=== PATIENT | male | born 1945 | race American Indian/Alaskan Native ===

== ENCOUNTER 2017-12-03 03:43 | Inpatient (IN) | payer BC, OTHER ==
--- NOTE | 2017-12-03 03:48 | PDOC ---
History of Present Illness - General Chief Complaint: Chest Pain Stated Complaint: CHEST TIGHTNESS NON PRODUCTIVE COUGH Time Seen by Provider: 12/03/17 03:45 History Source: Patient Exam Limitations: No Limitations - History of Present Illness Initial Comments: 12/03/17 03:45 This is a 72-year-old male with history significant for COPD, hypertension who comes in complaining of chest tightness and shortness of breath. Patient had a recent viral upper respiratory illness most likely influenza and was started on prednisone and an antibiotic yesterday. Patient took the prednisone and antibiotic yesterday. Patient is complaining of some associated shortness of breath with it denies any diaphoresis, denies any radiation. Tightness is across the anterior chest. Patient says he has been coughing but it is nonproductive. Patient denies any fevers today but had fevers 4 days ago. PAST MEDICAL HISTORY: As per history of present illness PAST SURGICAL HISTORY: no significant history FAMILY HISTORY: no pertinant history SOCIAL HISTORY: Pt lives with family and is employed. MEDICATIONS: reviewed ALLERGIES: As per nursing notes Review of Systems General: + fevers or chills, no weakness, no weight loss HEENT: No change in vision. No sore throat,. No ear pain CardioVascular: + chest pain + shortness of breath Respiratory:No cough, or wheezing. Gastrointestinal: no nausea, vomitting, diarrhea or constipation, No rectal bleeding Genitourinary: No dysuria, hematuria, or frequency Musculoskeletal: No joint or muscle pain or swelling Neurologic: No headache, vertigo, dizziness or loss of consciousness Psychiatric: nor depression Skin: No rashes or easy bruising Endocrine: no increased thirst or abnormal weight change Allergic: no skin or latex allergy All other systems reviewed and normal Exam: General: Well-nourished well-developed individual, no acute distress HEENT: Throat: Normal, tonsils normal, no erythema or exudate Neck: Supple, no meningeal signs, no lymphadenopathy Eyes::Pupils equal reactive and round, extraocular motion intact Chest: Nontender to palpation Cardiac: S1-S2 normal, regular rate and rhythm, no murmurs rubs or gallops Respiratory: Lungs clear to auscultation bilateral however there is decreased breath sounds bilateral Abdomen: Soft, nondistended, normal bowel sounds, nontender to palpation diffusely Extremities: Warm, dry, no cyanosis, clubbing, or edema Skin: No rashes Neuro: Alert and oriented x3, CN II - XII intact, nonfocal exam with normal strength, normal sensation, normal reflexes, normal gait, Psych: Normal mood and affect Medical decision making this is a 72-year-old male with recent history of most likely influenza now on an antibiotic and some steroids 1 day. Patient comes in complaining of tightness across his chest and shortness of breath. Patient was afebrile Differential diagnosis includes cardiac causes, COPD D exacerbation, bronchitis , pneumonia, pleuritis. We'll obtain workup including labs of CBC, comp, cardiac enzymes EKG and chest x-ray were ordered We'll reassess and evaluate results of workup 12/03/17 04:09 EKG done at 3:57 AM shows normal sinus rhythm at a rate of 79, no acute ST-T wave changes however poor data quality 12/03/17 05:56 Chest x-ray shows hyperinflation consistent with emphysema but otherwise no acute pathology Reassessment patient feels better on oxygen, no further chest pain/discomfort Patient's workup/labs are still pending. Patient will need a TELEMETRY admission as his heart scores 4 12/03/17 07:00 Care of patient transferred to Dr. Pabon at 7 AM Case discussed in detail with oncoming Emergency Physician including history, physical exam and ancillary studies. Oncoming Emergency Physician has assumed care for the patient and will complete the evaluation and treatment. Patient is aware of the plan. Pt is clinically unchanged and stable. Past History - Past Medical History Allergies/Adverse Reactions: Allergies Allergy/AdvReac Type Severity Reaction Status Date / Time levofloxacin [From Levaquin] Allergy Intermediate Rash Verified 12/03/17 03:46 Home Medications: Ambulatory Orders Albuterol Sulfate Inhaler - [Ventolin HFA Inhaler -] 1 puff IH PRN 12/03/17 Cefpodoxime Proxetil [Vantin -] 200 mg PO Q12H 12/03/17 Fludrocortisone Acetate 0.5 tab PO WEEKLY 12/03/17 Losartan Potassium 25 mg PO DAILY 12/03/17 Pantoprazole Sodium 40 mg PO DAILY 12/03/17 Prednisone [Deltasone -] 20 mg PO BID 12/03/17 Rosuvastatin [Crestor -] 20 mg PO DAILY 12/03/17 Silodosin [Rapaflo] 8 mg PO DAILY 12/03/17 Umeclidinium Brm/Vilanterol Tr [Anoro Ellipta 62.5-25 Mcg INH] 1 each IH DAILY 12/03/17 COPD: Yes GI Disorders: Yes Hypercholesterolemia: Yes - Suicide/Smoking/Psychosocial Hx Smoking History: Unknown if ever smoked Hx Alcohol Use: No Substance Use Type: None *Physical Exam - Vital Signs Last Vital Signs Temp Pulse Resp BP Pulse Ox 97.4 F L 73 20 162/105 98 12/03/17 03:45 12/03/17 05:15 12/03/17 05:15 12/03/17 05:15 12/03/17 05:15 Heart Score/ECG Review - History History: Slightly suspicious - Electrocardiogram EKG: Normal - Age Age: >/= 65 - Risk Factors Risk Factors Heart Score: Yes Hx Hypertension, Yes Smoking History, Yes Positive family hx of cardiac disease Based on the list above the patient has:: >/=3 risk factors or Hx atherosclerotic disease - Troponin Troponin: </= normal limit - Score Heart Score - Total: 4 ED Treatment Course - LABORATORY CBC & Chemistry Diagram: 12/03/17 04:25 12/03/17 04:25 - ADDITIONAL ORDERS Additional order review: Laboratory Results 12/03/17 04:25 Creatine Kinase 193 Troponin I < 0.02 - RADIOLOGY Radiology Studies Ordered: Category Date Time Status CHEST X-RAY PORTABLE* [RAD] Stat Radiology 12/03/17 03:52 Taken *DC/Admit/Observation/Transfer Diagnosis at time of Disposition: Chest pain Qualifiers: Chest pain type: unspecified Qualified Code(s): R07.9 - Chest pain, unspecified - Discharge Dispostion Condition at time of disposition: Fair - Referrals - Patient Instructions - Post Discharge Activity
[2017-12-03 06:43] LABS: ALBUMIN 3.8 g/dl (3.4-5.0); ALK PHOS 76 U/L (45-117); ANION GAP 7 (8-16); BILIRUBIN,TOTAL 0.5 mg/dL (0.2-1.0); BLOOD UREA NITROGEN 13 mg/dL (7-18); CALCIUM 9.1 mg/dL (8.5-10.1); CHLORIDE 103 mmol/L (98-107); CO2 28 mmol/L (21-32); CREATININE 1.3 mg/dL (0.7-1.3); GLUCOSE,RANDOM 96 mg/dL (74-106); POTASSIUM 4.7 mmol/L (3.5-5.1); SGOT/AST 25 U/L (15-37); SGPT/ALT 27 U/L (12-78); SODIUM 138 mmol/L (136-145); TOT PROT 7.3 g/dl (6.4-8.2)
[2017-12-03 07:33] LABS: HEMATOCRIT 48.6 % (35.4-49); HEMOGLOBIN 15.8 GM/dL (11.7-16.9); MCH 28.6 pg (25.7-33.7); MCHC 32.4 g/dl (32.0-35.9); MEAN CELL VOLUME 88.3 fl (80-96); RDW 14.3 % (11.9-15.9); WHITE BLOOD COUNT 9.5 K/mm3 (4.0-10.0)
[2017-12-03 07:35] LABS: INR 0.89 (0.82-1.09); PROTHROMBIN TIME (PATIENT) 10.1 SEC (9.98-11.88)
[2017-12-03 08:15] LABS: PLATELET ESTIMATE ADEQUATE
[2017-12-03] MEDS ORDERED: PANTOPRAZOLE 40 MG TABLET (FP) ONE (10:32)
[2017-12-03] MEDS: PANTOPRAZOLE 40 MG TABLET (FP) PO SCH (10:36)
[2017-12-03] MEDS: LOSARTAN POTASSIUM 25 MG TABLET PO SCH (10:36)
--- NOTE | 2017-12-03 12:37 | HP ---
<Evie Rodriguez - Last Filed: 12/04/17 03:55> CHIEF COMPLAINT: PCP: HISTORY OF PRESENT ILLNESS: ER course was notable for: (1) (2) (3) Recent Travel: PAST MEDICAL HISTORY: PAST SURGICAL HISTORY: Social History: Smoking: Alcohol: Drugs: Family History: Allergies levofloxacin [From Levaquin] Allergy (Intermediate, Verified 12/03/17 03:46) Rash HOME MEDICATIONS: Home Medications Medication Instructions Recorded Albuterol Sulfate Inhaler - 1 puff IH PRN 12/03/17 [Ventolin HFA Inhaler -] Cefpodoxime Proxetil [Vantin -] 200 mg PO Q12H 12/03/17 Fludrocortisone Acetate 0.5 tab PO WEEKLY 12/03/17 Losartan Potassium 25 mg PO DAILY 12/03/17 Pantoprazole Sodium 40 mg PO DAILY 12/03/17 Prednisone [Deltasone -] 20 mg PO BID 12/03/17 Rosuvastatin [Crestor -] 20 mg PO DAILY 12/03/17 Silodosin [Rapaflo] 8 mg PO DAILY 12/03/17 Umeclidinium Brm/Vilanterol Tr 1 each IH DAILY 12/03/17 [Anoro Ellipta 62.5-25 Mcg INH] REVIEW OF SYSTEMS CONSTITUTIONAL: Absent: fever, chills, diaphoresis, generalized weakness, malaise, loss of appetite, weight change HEENT: Absent: rhinorrhea, nasal congestion, throat pain, throat swelling, difficulty swallowing, mouth swelling, ear pain, eye pain, visual changes CARDIOVASCULAR: Absent: chest pain, syncope, palpitations, irregular heart rate, lightheadedness , peripheral edema RESPIRATORY: Absent: cough, shortness of breath, dyspnea with exertion, orthopnea, wheezing, stridor, hemoptysis GASTROINTESTINAL: Absent: abdominal pain, abdominal distension, nausea, vomiting, diarrhea, constipation, melena, hematochezia GENITOURINARY: Absent: dysuria, frequency, urgency, hesitancy, hematuria, flank pain, genital pain MUSCULOSKELETAL: Absent: myalgia, arthralgia, joint swelling, back pain, neck pain SKIN: Absent: rash, itching, pallor HEMATOLOGIC/IMMUNOLOGIC: Absent: easy bleeding, easy bruising, lymphadenopathy, frequent infections ENDOCRINE: Absent: unexplained weight gain, unexplained weight loss, heat intolerance, cold intolerance NEUROLOGIC: Absent: headache, focal weakness or paresthesias, dizziness, unsteady gait, seizure, mental status changes, bladder or bowel incontinence PSYCHIATRIC: Absent: anxiety, depression, suicidal or homicidal ideation, hallucinations. PHYSICAL EXAMINATION Vital Signs - 24 hr 12/03/17 12/03/17 12/03/17 05:15 07:04 09:00 Temperature Pulse Rate Pulse Rate [ 73 68 80 Left Radial] Respiratory 20 18 18 Rate Blood Pressure Blood Pressure 162/105 164/105 160/102 [Right Arm] O2 Sat by Pulse 98 100 98 Oximetry (%) 12/03/17 12/03/17 12/03/17 09:44 11:09 12:27 Temperature 97.4 F L 97.7 F Pulse Rate 92 H Pulse Rate [ 81 Left Radial] Respiratory 18 18 18 Rate Blood Pressure 152/98 Blood Pressure 159/105 [Right Arm] O2 Sat by Pulse 98 98 98 Oximetry (%) 12/03/17 12/03/17 12/03/17 15:00 17:44 20:12 Temperature Pulse Rate 95 H Pulse Rate [ Left Radial] Respiratory 24 18 18 Rate Blood Pressure Blood Pressure [Right Arm] O2 Sat by Pulse 98 98 Oximetry (%) 12/03/17 12/04/17 12/04/17 23:00 02:53 03:31 Temperature 98.2 F 97.7 F 97.5 F L Pulse Rate 79 70 112 H Pulse Rate [ Left Radial] Respiratory 20 19 20 Rate Blood Pressure 143/89 182/107 171/107 Blood Pressure [Right Arm] O2 Sat by Pulse 100 100 97 Oximetry (%) GENERAL: Awake, alert, and fully oriented, in no acute distress. HEAD: Normal with no signs of trauma. EYES: Pupils equal, round and reactive to light, extraocular movements intact, sclera anicteric, conjunctiva clear. No lid lag. EARS, NOSE, THROAT: Ears normal, nares patent, oropharynx clear without exudates. Moist mucous membranes. NECK: Normal range of motion, supple without lymphadenopathy, JVD, or masses. LUNGS: Breath sounds equal, clear to auscultation bilaterally. No wheezes, and no crackles. No accessory muscle use. HEART: Regular rate and rhythm, normal S1 and S2 without murmur, rub or gallop. ABDOMEN: Soft, nontender, not distended, normoactive bowel sounds, no guarding, no rebound, no masses. No hepatomegaly or splenomegaly. MUSCULOSKELETAL: Normal range of motion at all joints. No bony deformities or tenderness. No CVA tenderness. UPPER EXTREMITIES: 2+ pulses, warm, well-perfused. No cyanosis. No clubbing. No peripheral edema. LOWER EXTREMITIES: 2+ pulses, warm, well-perfused. No calf tenderness. No peripheral edema. NEUROLOGICAL: Cranial nerves II-XII intact. Normal speech. Normal gait. PSYCHIATRIC: Cooperative. Good eye contact. Appropriate mood and affect. SKIN: Warm, dry, normal turgor, no rashes or lesions noted, normal capillary refill. Laboratory Results - last 24 hr 12/03/17 12/03/17 12/03/17 04:25 04:25 04:25 WBC 9.5 RBC 5.50 Hgb 15.8 Hct 48.6 MCV 88.3 MCH 28.6 MCHC 32.4 RDW 14.3 Plt Count No Result Required. MPV No Result Required. Total Counted 100 Neutrophils % No Result Required. Neutrophils % (Manual) 87.0 H Lymphocytes % No Result Required. Lymphocytes % (Manual) 8.0 Monocytes % (Manual) 5 Platelet Estimate Adequate Platelet Comment Mod plt clumping PT with INR 10.10 INR 0.89 Sodium 138 Potassium 4.7 Chloride 103 Carbon Dioxide 28 Anion Gap 7 L BUN 13 Creatinine 1.3 Creat Clearance w eGFR 54.42 Random Glucose 96 Calcium 9.1 Total Bilirubin 0.5 AST 25 ALT 27 Alkaline Phosphatase 76 Creatine Kinase Creatine Kinase Index CK-MB (CK-2) Troponin I Total Protein 7.3 Albumin 3.8 12/03/17 12/03/17 12/03/17 04:25 14:15 14:15 WBC RBC Hgb Hct MCV MCH MCHC RDW Plt Count MPV Total Counted Neutrophils % Neutrophils % (Manual) Lymphocytes % Lymphocytes % (Manual) Monocytes % (Manual) Platelet Estimate Platelet Comment PT with INR INR Sodium Potassium Chloride Carbon Dioxide Anion Gap BUN Creatinine Creat Clearance w eGFR Random Glucose Calcium Total Bilirubin AST ALT Alkaline Phosphatase Creatine Kinase 193 164 Creatine Kinase Index 5.4 H 7.8 H* CK-MB (CK-2) 10.480 H 12.8 H Troponin I < 0.02 < 0.03 Total Protein Albumin 12/03/17 12/03/17 12/04/17 22:45 22:45 03:30 WBC RBC Hgb Hct MCV MCH MCHC RDW Plt Count MPV Total Counted Neutrophils % Neutrophils % (Manual) Lymphocytes % Lymphocytes % (Manual) Monocytes % (Manual) Platelet Estimate Platelet Comment PT with INR INR Sodium Potassium Chloride Carbon Dioxide Anion Gap BUN Creatinine Creat Clearance w eGFR Random Glucose Calcium Total Bilirubin AST ALT Alkaline Phosphatase Creatine Kinase 185 Creatine Kinase Index 7.5 H* CK-MB (CK-2) 13.9 H Troponin I < 0.03 Cancelled Total Protein Albumin ASSESSMENT/PLAN: <EranFartun - Last Filed: 12/05/17 14:10> CHIEF COMPLAINT: shortness of breath PCP: Dr Quigley Pulmonary: Dr Moreno HISTORY OF PRESENT ILLNESS: Patient is a 72 y/o male with a past medical history of COPD, orthostatic hypotension, BPH. patient reports ongoing chest pressure and shortness of breath for the past 3 days. He was evaluated by his PCP and was diagnosed with COPD exacerbation sterted on prednisone 40mg daily and vantin. patient reports taking prednisione, albuterol nebulizers as prescribed. However the chest discomfort discomfort worsened this AM and he sought evaluation in the emergency department ER course was notable for: (1)troponin x 1 wnl (2)chest xray no acute pathology noted (3)ekg nsr normal axis no st abnormality Recent Travel: none PAST MEDICAL HISTORY: see hpi PAST SURGICAL HISTORY: none Social History: retired resides at home with daughter Smoking: former smoker quit 2003 Alcohol:none Drugs: none Family History: non-contributory Allergies levofloxacin [From Levaquin] Allergy (Intermediate, Verified 12/03/17 03:46) Rash HOME MEDICATIONS: Home Medications Medication Instructions Recorded Albuterol Sulfate Inhaler - 1 puff IH PRN 12/03/17 [Ventolin HFA Inhaler -] Cefpodoxime Proxetil [Vantin -] 200 mg PO Q12H 12/03/17 Fludrocortisone Acetate 0.5 tab PO WEEKLY 12/03/17 Losartan Potassium 25 mg PO DAILY 12/03/17 Pantoprazole Sodium 40 mg PO DAILY 12/03/17 Prednisone [Deltasone -] 20 mg PO BID 12/03/17 Rosuvastatin [Crestor -] 20 mg PO DAILY 12/03/17 Silodosin [Rapaflo] 8 mg PO DAILY 12/03/17 Umeclidinium Brm/Vilanterol Tr 1 each IH DAILY 12/03/17 [Anoro Ellipta 62.5-25 Mcg INH] REVIEW OF SYSTEMS CONSTITUTIONAL: Absent: fever, chills, diaphoresis, generalized weakness, malaise, loss of appetite, weight change HEENT: Absent: rhinorrhea, nasal congestion, throat pain, throat swelling, difficulty swallowing, mouth swelling, ear pain, eye pain, visual changes CARDIOVASCULAR: Absent: chest pain, syncope, palpitations, irregular heart rate, lightheadedness , peripheral edema RESPIRATORY: present: cough, shortness of breath, dyspnea with exertion Absent: orthopnea, wheezing, stridor, hemoptysis GASTROINTESTINAL: Absent: abdominal pain, abdominal distension, nausea, vomiting, diarrhea, constipation, melena, hematochezia GENITOURINARY: Absent: dysuria, frequency, urgency, hesitancy, hematuria, flank pain, genital pain MUSCULOSKELETAL: Absent: myalgia, arthralgia, joint swelling, back pain, neck pain SKIN: Absent: rash, itching, pallor HEMATOLOGIC/IMMUNOLOGIC: Absent: easy bleeding, easy bruising, lymphadenopathy, frequent infections ENDOCRINE: Absent: unexplained weight gain, unexplained weight loss, heat intolerance, cold intolerance NEUROLOGIC: Absent: headache, focal weakness or paresthesias, dizziness, unsteady gait, seizure, mental status changes, bladder or bowel incontinence PSYCHIATRIC: Absent: anxiety, depression, suicidal or homicidal ideation, hallucinations. PHYSICAL EXAMINATION Vital Signs - 24 hr 12/03/17 12/03/17 12/03/17 03:45 05:15 07:04 Temperature 97.4 F L Pulse Rate 98 H Pulse Rate [ 73 68 Left Radial] Respiratory 20 20 18 Rate Blood Pressure 154/110 Blood Pressure 162/105 164/105 [Right Arm] O2 Sat by Pulse 97 98 100 Oximetry (%) 12/03/17 12/03/17 09:00 11:09 Temperature 97.4 F L Pulse Rate Pulse Rate [ 80 81 Left Radial] Respiratory 18 18 Rate Blood Pressure Blood Pressure 160/102 159/105 [Right Arm] O2 Sat by Pulse 98 98 Oximetry (%) GENERAL: Awake, alert, and fully oriented, in no acute distress. HEAD: Normal with no signs of trauma. EYES: Pupils equal, round and reactive to light, extraocular movements intact, sclera anicteric, conjunctiva clear. No lid lag. EARS, NOSE, THROAT: Ears normal, nares patent, oropharynx clear without exudates. Moist mucous membranes. NECK: Normal range of motion, supple without lymphadenopathy, JVD, or masses. LUNGS: Breath sounds equal, bilateral inspiratory wheeze to apexes, diminished to bases, no crackles and no stridor, No accessory muscle use. HEART: Regular rate and rhythm, normal S1 and S2 without murmur, rub or gallop. ABDOMEN: Soft, nontender, not distended, normoactive bowel sounds, no guarding, no rebound, no masses. No hepatomegaly or splenomegaly. MUSCULOSKELETAL: Normal range of motion at all joints. No bony deformities or tenderness. No CVA tenderness. UPPER EXTREMITIES: 2+ pulses, warm, well-perfused. No cyanosis. No clubbing. No peripheral edema. LOWER EXTREMITIES: 2+ pulses, warm, well-perfused. No calf tenderness. No peripheral edema. NEUROLOGICAL: Cranial nerves II-XII intact. Normal speech. Normal gait. PSYCHIATRIC: Cooperative. Good eye contact. Appropriate mood and affect. SKIN: Warm, dry, normal turgor, no rashes or lesions noted, normal capillary refill. Laboratory Results - last 24 hr 12/03/17 12/03/17 12/03/17 04:25 04:25 04:25 WBC 9.5 RBC 5.50 Hgb 15.8 Hct 48.6 MCV 88.3 MCH 28.6 MCHC 32.4 RDW 14.3 Plt Count No Result Required. MPV No Result Required. Total Counted 100 Neutrophils % No Result Required. Neutrophils % (Manual) 87.0 H Lymphocytes % No Result Required. Lymphocytes % (Manual) 8.0 Monocytes % (Manual) 5 Platelet Estimate Adequate Platelet Comment Mod plt clumping PT with INR 10.10 INR 0.89 Sodium 138 Potassium 4.7 Chloride 103 Carbon Dioxide 28 Anion Gap 7 L BUN 13 Creatinine 1.3 Creat Clearance w eGFR 54.42 Random Glucose 96 Calcium 9.1 Total Bilirubin 0.5 AST 25 ALT 27 Alkaline Phosphatase 76 Creatine Kinase Creatine Kinase Index CK-MB (CK-2) Troponin I Total Protein 7.3 Albumin 3.8 12/03/17 04:25 WBC RBC Hgb Hct MCV MCH MCHC RDW Plt Count MPV Total Counted Neutrophils % Neutrophils % (Manual) Lymphocytes % Lymphocytes % (Manual) Monocytes % (Manual) Platelet Estimate Platelet Comment PT with INR INR Sodium Potassium Chloride Carbon Dioxide Anion Gap BUN Creatinine Creat Clearance w eGFR Random Glucose Calcium Total Bilirubin AST ALT Alkaline Phosphatase Creatine Kinase 193 Creatine Kinase Index 5.4 H CK-MB (CK-2) 10.480 H Troponin I < 0.02 Total Protein Albumin ASSESSMENT/PLAN: F/E/N -vegeterian diet - replete lytes prn ppx - oob - protonix dispo: requires inpatient admission Problem List - Problem (1) COPD with acute exacerbation Assessment/Plan: -continue prednsione 20mg bid and vantin - continue anoro (home inlater) albuterol nebulizer PRN - peak flow - continous spo2 monitoring Code(s): J44.1 - CHRONIC OBSTRUCTIVE PULMONARY DISEASE W (ACUTE) EXACERBATION (2) Orthostatic hypotension Assessment/Plan: - allow for permissive hypertension, continue home dose cozaar, - pt takes fludrocortisone 0.1mg 1/2 tab twice a week, next dose is tommorow, Code(s): I95.1 - ORTHOSTATIC HYPOTENSION (3) Chest pain Assessment/Plan: - troponin x 1 wnl, pending 2nd and 3rd troponin, discomfort likely secondary to copd excerbation - continous cardiac monitoring - pending echo - appreciate cardiology input Code(s): R07.9 - CHEST PAIN, UNSPECIFIED Qualifiers: Chest pain type: unspecified Qualified Code(s): R07.9 - Chest pain, unspecified (4) BPH (benign prostatic hyperplasia) Assessment/Plan: - continue rapaflo, monitor for signs of urinary retention Code(s): N40.0 - BENIGN PROSTATIC HYPERPLASIA WITHOUT LOWER URINRY TRACT SYMP Qualifiers: Lower urinary tract symptom detail: unspecified Visit type - Emergency Visit Emergency Visit: Yes ED Registration Date: 12/03/17 Care time: The patient presented to the Emergency Department on the above date and was hospitalized for further evaluation of their emergent condition. - New Patient This patient is new to me today: Yes Date on this admission: 12/04/17 - Critical Care Critical Care patient: No
[2017-12-03 12:38] VITALS: BMI 19.7
[2017-12-03] MEDS ORDERED: ALBUTEROL SO4 0.083% IH SOL 2.5 MG/3 ML VIAL.NEB. NEB PRN (12:59)
[2017-12-03] MEDS ORDERED: ALBUTEROL SO4 2.5/IPRATROPIUM 0.5 INH SOL 3 ML VIAL.NEB. NEB ONE (13:25)
[2017-12-03] MEDS ORDERED: SODIUM CHLORIDE 1,000 ML IV SCH (16:00)
--- NOTE | 2017-12-03 16:54 | EKG ---
Test Reason : Blood Pressure : / mmHG Vent. Rate : 077 BPM Atrial Rate : 077 BPM P-R Int : 180 ms QRS Dur : 070 ms QT Int : 368 ms P-R-T Axes : 076 061 077 degrees QTc Int : 416 ms POOR DATA QUALITY, INTERPRETATION MAY BE ADVERSELY AFFECTED SINUS RHYTHM WITH OCCASIONAL PREMATURE VENTRICULAR COMPLEXES NONSPECIFIC ST ABNORMALITY NO PREVIOUS ECGS AVAILABLE Confirmed by MD ELLIOT, NAWAF ([id number]) on 12/03/2017 4:53:56 PM Referred By: MD LEMUS Confirmed By:NAWAF ZARATE MD
[2017-12-03] MEDS ORDERED: PT OWN MED DRAWER 7, Y5N ONE (21:11)
[2017-12-03] MEDS: CEFPODOXIME PROXETIL 200 MG TABLET [NF] PO SCH (21:18)
[2017-12-03] MEDS ORDERED: predniSONE 20 MG TABLET (UD) PO SCH (22:00)
[2017-12-04] MEDS ORDERED: NITROGLYCERIN SUBLINGUAL 1/150 0.4 MG TAB ONE (02:56)
[2017-12-04] MEDS: NITROGLYCERIN SUBLINGUAL 1/150 0.4 MG TAB SL PRN ×2 (03:00→03:10)
--- NOTE | 2017-12-04 03:33 | HOSP ---
Subjective - Review of Symptoms Events since last encounter: Hospitalist Encounter Notified by primary RN, that the patient reports chest tightness. Subjective: Arrived to room, patient is using the bathroom. He ambulated a few steps and had PRYOR. RN placed pt in chair. Patient reports having mid sternal chest tightness/pressure. He reports PRYOR. A/P Patient is a 72 y/o male with a past medical history of COPD, orthostatic hypotension, BPH. patient reports ongoing chest pressure and shortness of breath for the past 3 days Serial enzymes neg x3 CTA- neg PE, nodules, mediastinal lymphadenopathy concerning for malignancy Plan EKG stat- reviewed no change Cardiac profile now Duoneb now Pending transfer to [facility] [place], when bed available Will continue to monitor Cardiovascular: Yes: Chest Pain Physical Examination Vital Signs: Vital Signs Temperature 97.7 F 12/04/17 02:53 Pulse Rate 70 12/04/17 02:53 Respiratory Rate 19 12/04/17 02:53 Blood Pressure 182/107 12/04/17 02:53 O2 Sat by Pulse Oximetry (%) 100 12/04/17 02:53 Constitutional: Yes: Moderate Distress, Thin Eyes: Yes: WNL, Conjunctiva Clear, PERRL HENT: Yes: WNL, Atraumatic, Normocephalic Neck: Yes: WNL, Supple, Trachea Midline Cardiovascular: Yes: Tachycardia, S1, S2 Respiratory: Yes: Diminished, On Nasal O2, Rhonchi, Tachypnea, Wheezes Gastrointestinal: Yes: WNL, Normal Bowel Sounds, Soft Edema: No Peripheral Pulses WNL: Yes ...Motor Strength: WNL Psychiatric: Yes: WNL, Alert, Oriented Labs: CBC, BMP 12/03/17 04:25 12/03/17 04:25 Laboratory Results - last 24 hr 12/03/17 12/03/17 12/03/17 04:25 04:25 04:25 WBC 9.5 RBC 5.50 Hgb 15.8 Hct 48.6 MCV 88.3 MCH 28.6 MCHC 32.4 RDW 14.3 Plt Count No Result Required. MPV No Result Required. Total Counted 100 Neutrophils % No Result Required. Neutrophils % (Manual) 87.0 H Lymphocytes % No Result Required. Lymphocytes % (Manual) 8.0 Monocytes % (Manual) 5 Platelet Estimate Adequate Platelet Comment Mod plt clumping PT with INR 10.10 INR 0.89 Sodium 138 Potassium 4.7 Chloride 103 Carbon Dioxide 28 Anion Gap 7 L BUN 13 Creatinine 1.3 Creat Clearance w eGFR 54.42 Random Glucose 96 Calcium 9.1 Total Bilirubin 0.5 AST 25 ALT 27 Alkaline Phosphatase 76 Creatine Kinase Creatine Kinase Index CK-MB (CK-2) Troponin I Total Protein 7.3 Albumin 3.8 12/03/17 12/03/17 12/03/17 04:25 14:15 14:15 WBC RBC Hgb Hct MCV MCH MCHC RDW Plt Count MPV Total Counted Neutrophils % Neutrophils % (Manual) Lymphocytes % Lymphocytes % (Manual) Monocytes % (Manual) Platelet Estimate Platelet Comment PT with INR INR Sodium Potassium Chloride Carbon Dioxide Anion Gap BUN Creatinine Creat Clearance w eGFR Random Glucose Calcium Total Bilirubin AST ALT Alkaline Phosphatase Creatine Kinase 193 164 Creatine Kinase Index 5.4 H 7.8 H* CK-MB (CK-2) 10.480 H 12.8 H Troponin I < 0.02 < 0.03 Total Protein Albumin 12/03/17 12/03/17 12/04/17 22:45 22:45 03:30 WBC RBC Hgb Hct MCV MCH MCHC RDW Plt Count MPV Total Counted Neutrophils % Neutrophils % (Manual) Lymphocytes % Lymphocytes % (Manual) Monocytes % (Manual) Platelet Estimate Platelet Comment PT with INR INR Sodium Potassium Chloride Carbon Dioxide Anion Gap BUN Creatinine Creat Clearance w eGFR Random Glucose Calcium Total Bilirubin AST ALT Alkaline Phosphatase Creatine Kinase 185 Creatine Kinase Index 7.5 H* CK-MB (CK-2) 13.9 H Troponin I < 0.03 Cancelled Total Protein Albumin Intake & Output 12/01/17 12/02/17 12/03/17 12/04/17 23:59 23:59 23:59 23:59 Intake Total 700 Balance 700 Weight 55.338 kg Current Medications Generic Name Dose Route Start Last Admin Trade Name Freq PRN Reason Stop Dose Admin Albuterol Sulfate 1 amp 12/03/17 12:59 12/04/17 03:30 Ventolin 0.083% Nebulizer Soln - NEB 1 amp Q4H PRN Administration SHORT OF BREATH/WHEEZING Aspirin 81 mg 12/04/17 10:00 Asa - PO DAILY ELVIRA Cefpodoxime Proxetil 200 mg 12/03/17 22:00 12/03/17 21:18 Vantin - PO 200 mg BID ELVIRA Administration Sodium Chloride 1,000 mls @ 75 mls/hr 12/03/17 16:00 12/03/17 18:49 Normal Saline - IV 12/04/17 05:19 75 mls/hr ASDIR ELVIRA Administration Losartan Potassium 25 mg 12/03/17 10:00 12/03/17 10:36 Cozaar - PO 25 mg DAILY ELVIRA Administration Nitroglycerin 0.4 mg 12/04/17 03:13 12/04/17 03:10 Nitrostat - SL 0.4 mg Q5M PRN Administration FOR CHEST PAIN Non-Formulary Medication 1 each 12/04/17 10:00 Umeclidinium Brm/Vilanterol Tr [Anoro Ellipta 62.5-25 Mcg Inh] IH DAILY [facility] Non-Formulary Medication 8 mg 12/04/17 10:00 Silodosin [Rapaflo] PO DAILY ELVIRA Pantoprazole Sodium 40 mg 12/03/17 10:00 12/03/17 10:36 Protonix - PO 40 mg DAILY ELVIRA Administration Prednisone 20 mg 12/03/17 22:00 12/03/17 21:15 Deltasone - PO 20 mg BID ELVIRA Administration Rosuvastatin Calcium 20 mg 12/04/17 22:00 Crestor - PO [facility] Critical Care Total Critical Care Time (in minutes): 40 Critical Care Statement: The care of this patient involved high complexity decision making to prevent further life threatening deterioration of the patient 's condition and/or to evaluate & treat vital organ system(s) failure or risk of failure.
[2017-12-04] MEDS ORDERED: NITROGLYCERIN 2% OINTMENT - 1GM PACKET TD ONE (04:59)
--- NOTE | 2017-12-04 08:21 | PN ---
Physical Exam: SUBJECTIVE: Patient seen and examined, sitting in bedside chair, episode of chest pain and dyspnea upon exertion. OBJECTIVE:Patient is a 72 y/o male with a past medical history of COPD, orthostatic hypotension, and BPH. Vital Signs Period Temp Pulse Resp BP Sys/Schafer Pulse Ox Last 24 Hr 97.4 F-98.4 F 70-112 18-24 138-182/87-107 97-100 GENERAL: The patient is awake, alert, and fully oriented, in no acute distress. HEAD: Normal with no signs of trauma. EYES: PERRL, extraocular movements intact, sclera anicteric, conjunctiva clear. No ptosis. ENT: Ears normal, nares patent, oropharynx clear without exudates, moist mucous membranes. NECK: Trachea midline, full range of motion, supple. LUNGS: Breath sounds equal, mild billateral inspiratory wheeze to the apexes, diminished to the bases, no crackles, no accessory muscle use, + accessory muscle use. HEART: Regular rate and rhythm, S1, S2 without murmur, rub or gallop. ABDOMEN: Soft, nontender, nondistended, normoactive bowel sounds, no guarding, no rebound, no hepatosplenomegaly, no masses. EXTREMITIES: 2+ pulses, warm, well-perfused, no edema. NEUROLOGICAL: Cranial nerves II through XII grossly intact. Normal speech, gait not observed. PSYCH: Normal mood, normal affect. SKIN: Warm, dry, normal turgor, no rashes or lesions noted Laboratory Results - last 24 hr 12/03/17 12/03/17 12/03/17 14:15 14:15 22:45 Creatine Kinase 164 Creatine Kinase Index 7.8 H* CK-MB (CK-2) 12.8 H Troponin I < 0.03 < 0.03 12/03/17 12/04/17 12/04/17 22:45 03:30 03:30 Creatine Kinase 185 174 Creatine Kinase Index 7.5 H* 6.5 H* CK-MB (CK-2) 13.9 H 11.455 H Troponin I Cancelled < 0.02 Active Medications Generic Name Dose Route Start Last Admin Trade Name Freq PRN Reason Stop Dose Admin Albuterol Sulfate 1 amp 12/03/17 12:59 12/04/17 03:30 Ventolin 0.083% Nebulizer Soln - NEB 1 amp Q4H PRN Administration SHORT OF BREATH/WHEEZING Aspirin 81 mg 12/04/17 10:00 Asa - PO DAILY ELVIRA Cefpodoxime Proxetil 200 mg 12/03/17 22:00 12/03/17 21:18 Vantin - PO 200 mg BID ELVIRA Administration Losartan Potassium 25 mg 12/03/17 10:00 12/03/17 10:36 Cozaar - PO 25 mg DAILY ELVIRA Administration Methylprednisolone Sodium Succinate 40 mg 12/04/17 09:00 Solu-Medrol - IVPUSH Q6H-IV ELVIRA Nitroglycerin 0.4 mg 12/04/17 03:13 12/04/17 03:10 Nitrostat - SL 0.4 mg Q5M PRN Administration FOR CHEST PAIN Non-Formulary Medication 1 each 12/04/17 10:00 Umeclidinium Brm/Vilanterol Tr [Anoro Ellipta 62.5-25 Mcg Inh] IH DAILY [facility] Non-Formulary Medication 8 mg 12/04/17 10:00 Silodosin [Rapaflo] PO DAILY ELVIRA Pantoprazole Sodium 40 mg 12/03/17 10:00 12/03/17 10:36 Protonix - PO 40 mg DAILY ELVIRA Administration Rosuvastatin Calcium 20 mg 12/04/17 22:00 Crestor - PO HS [facility] Microbiology 12/03/17 06:40 Nasopharyngeal Swab Influenza Types A,B Antigen (ADRIAN) - Final , negative 12/03/17 06:40 Nasopharyngeal Swab - Final IMAGING ct of chest w/contrast: no evidence of PE, PNA, or pulmonary edema, advanced centrilobar emphysematous changes, 1.4 x 1.2cm nodular soft tissue in the right hilar region, ? neoplasm. ASSESSMENT/PLAN: 1) pulm copd excerbation - episode of hypoxia and moderate dyspnea upon exertion on the overnight, ct of chest w/contrast reviewed, d/c po prednisione, start solumedrol 40mg q6h and scheduled combivent nebulizer - pt was started on vantin 12/02/17 by PCP for suspicous bacterial bronchitis. - continous spo2 monitoring, supplemental O2 PRN, keep spo2 above 92% - appreciate pulmonary input 2) cardiovascular chest pain r/o acs - troponin x 3 wnl, episode of chest pain overnight that responded to NTG, EKG remained unchanged appreciate cardiology input - pending echo report - continous cardiac monitoring orthostatic hypotension - continue home dose cozaar, pt takes fludrocortisone 0.1mg 1/2 tab twice a week, next dose is today, 12/04/17 3) BPH - continue rapaflo, monitor for signs of urinary retention f/e/n - vegeterian diet - replete lytes prn ppx - protonix - heparin - oob - scd dispo: pt requires inpatient telemetry Problem List - Problems (1) COPD with acute exacerbation Code(s): J44.1 - CHRONIC OBSTRUCTIVE PULMONARY DISEASE W (ACUTE) EXACERBATION (2) Orthostatic hypotension Code(s): I95.1 - ORTHOSTATIC HYPOTENSION (3) Chest pain Code(s): R07.9 - CHEST PAIN, UNSPECIFIED Qualifiers: Chest pain type: unspecified Qualified Code(s): R07.9 - Chest pain, unspecified (4) BPH (benign prostatic hyperplasia) Code(s): N40.0 - BENIGN PROSTATIC HYPERPLASIA WITHOUT LOWER URINRY TRACT SYMP Qualifiers: Lower urinary tract symptom detail: unspecified Visit type - Emergency Visit Emergency Visit: Yes ED Registration Date: 12/03/17 Care time: The patient presented to the Emergency Department on the above date and was hospitalized for further evaluation of their emergent condition. - New Patient This patient is new to me today: No - Critical Care Critical Care patient: No - Discharge Referral Referred to [facility] No
[2017-12-04 08:29] LABS: ANION GAP 6 (8-16); BLOOD UREA NITROGEN 15 mg/dl (7-18); CALCIUM 8.7 mg/dl (8.4-10.2); CHLORIDE 100 mmol/L (98-107); CO2 25 mmol/L (22-28); CREATININE 1.2 mg/dl (0.6-1.3); GLUCOSE,RANDOM 117 mg/dl (74-106); MAGNESIUM 1.9 mg/dL (1.8-2.4); PHOSPHOROUS 4.5 mg/dl (2.5-4.6); POTASSIUM 3.8 mmol/L (3.5-5.1); SODIUM 131 mmol/L (136-145)
[2017-12-04] MEDS ORDERED: TAMSULOSIN HCL 0.4 MG CAP.ER.24H (FP) PO SCH (08:30)
[2017-12-04] MEDS ORDERED: ALBUTEROL SO4 2.5/IPRATROPIUM 0.5 INH SOL 3 ML VIAL.NEB. NEB SCH (08:45)
[2017-12-04 09:17] LABS: CHOLESTEROL 211 mg/dl; HDL CHOLESTEROL 87 mg/dl (29-89); LDL CHOLESTEROL (ONLY DFH) 101 mg/dl; TRIGLYCERIDES 115 mg/dl (35-160)
[2017-12-04] MEDS ORDERED: PT OWN MED DRAWER 7, Y5N ONE ×5 (09:37→21:26)
[2017-12-04] MEDS: methylPREDNISolone NA SUCC 40 MG/1 ML VIAL IVPUSH SCH ×3 (09:50→20:48)
[2017-12-04] MEDS: PANTOPRAZOLE 40 MG TABLET (FP) PO SCH (09:56)
[2017-12-04] MEDS: ASPIRIN 81 MG CHEWABLE TABLETS PO SCH (09:56)
[2017-12-04] MEDS: LOSARTAN POTASSIUM 25 MG TABLET PO SCH (09:57)
[2017-12-04] MEDS: CEFPODOXIME PROXETIL 200 MG TABLET [NF] PO SCH ×2 (09:58→21:25)
[2017-12-04] MEDS ORDERED: PATIENT'S OWN MEDICATION (NON-FORMULARY) (Silodosin [Rapaflo] 8 MG) PO SCH ×2 (10:00)
--- NOTE | 2017-12-04 10:01 | CON.CARD ---
Consult Consult Specialty:: Cardiology Referred by:: Hospitalist Medicine Reason for Consultation:: Chest pain, dyspnea on exertion - History of Present Illness Chief Complaint: Chest pain, dyspnea on exertion History of Present Illness: Patient is a 72 y/o male with a past medical history of COPD, orthostatic hypotension, BPH presents with chest tightness, cough, wheeze and shortness of breath despite outpatient prednisone 40mg daily, albuterol and vantin without significant relief. 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 - History Source History Provided By: Patient Limitations to Obtaining History: No Limitations - Alcohol/Substance Use Hx Alcohol Use: No - Smoking History Smoking history: Former smoker Have you smoked in the past 12 months: No If you are a former smoker, when did you quit?: 2003 Home Medications - Allergies Allergies/Adverse Reactions: Allergies Allergy/AdvReac Type Severity Reaction Status Date / Time levofloxacin [From Levaquin] Allergy Intermediate Rash Verified 12/03/17 03:46 - Home Medications Home Medications: Ambulatory Orders Albuterol Sulfate Inhaler - [Ventolin HFA Inhaler -] 1 puff IH PRN 12/03/17 Cefpodoxime Proxetil [Vantin -] 200 mg PO Q12H 12/03/17 Fludrocortisone Acetate 0.5 tab PO WEEKLY 12/03/17 Losartan Potassium 25 mg PO DAILY 12/03/17 Pantoprazole Sodium 40 mg PO DAILY 12/03/17 Prednisone [Deltasone -] 20 mg PO BID 12/03/17 Rosuvastatin [Crestor -] 20 mg PO DAILY 12/03/17 Silodosin [Rapaflo] 8 mg PO DAILY 12/03/17 Umeclidinium Brm/Vilanterol Tr [Anoro Ellipta 62.5-25 Mcg INH] 1 each IH DAILY 12/03/17 Review of Systems - Review of Systems Cardiovascular: reports: Chest Pain Respiratory: reports: Cough, SOB on Exertion, Wheezing Vital Signs: Vital Signs Temperature 98.4 F 12/04/17 06:26 Pulse Rate 80 12/04/17 06:26 Respiratory Rate 20 12/04/17 06:26 Blood Pressure 138/94 12/04/17 06:26 O2 Sat by Pulse Oximetry (%) 100 12/04/17 08:50 Constitutional: Yes: No Distress, Calm Neck: Yes: Supple Respiratory: Yes: Regular, Cough, Diminished, On Nasal O2, SOB, Wheezes Gastrointestinal: Yes: Normal Bowel Sounds, Soft Cardiovascular: Yes: Regular Rate and Rhythm JVD: No Carotid Bruit: No Heart Sounds: Yes: S1, S2 Murmur: Yes: Systolic Murmur, Grade 1 Edema: No - Other Data Labs, Other Data: CBC, BMP 12/04/17 07:45 INR, PTT INR 0.89 (0.82-1.09) 12/03/17 04:25 Troponin, BNP 12/03/17 12/03/17 12/04/17 14:15 22:45 03:30 Troponin I < 0.03 < 0.03 Cancelled 12/04/17 03:30 Troponin I < 0.02 Troponin, BNP 12/03/17 12/03/17 12/04/17 14:15 22:45 03:30 Troponin I < 0.03 < 0.03 Cancelled 12/04/17 03:30 Troponin I < 0.02 NSR @ 77 PVC, nonspec ST changes Echo: Pending Ejection Fraction %: LVEF > or = 40 % Imaging - Results Chest X-ray: Report Reviewed (NAD) Cat Scan: Report Reviewed (Advanced centrilobular emphysema, right hilar pulmonary nodules) Problem List - Problems (1) Labile essential hypertension Code(s): I10 - ESSENTIAL (PRIMARY) HYPERTENSION (2) BPH (benign prostatic hyperplasia) Code(s): N40.0 - BENIGN PROSTATIC HYPERPLASIA WITHOUT LOWER URINRY TRACT SYMP Qualifiers: Lower urinary tract symptom detail: unspecified (3) COPD with acute exacerbation Code(s): J44.1 - CHRONIC OBSTRUCTIVE PULMONARY DISEASE W (ACUTE) EXACERBATION (4) Chest pain Code(s): R07.9 - CHEST PAIN, UNSPECIFIED Qualifiers: Chest pain type: unspecified Qualified Code(s): R07.9 - Chest pain, unspecified (5) Orthostatic hypotension Code(s): I95.1 - ORTHOSTATIC HYPOTENSION Assessment/Plan 1. Acute exacerbation of COPD 2. Acute on chronic hypoxic failure 3. Right hilar pulmonary nodule 4. Atypical chest tightness referable to above 5. Labile hypertension with orthostasis 6. Hyperlipidemia 7. BPH P:1. Ruled out for NC 2. IV steroids, BD, O2 to maintain saO2>90%, empiric abx course 3. F/u echo to assess RVSP, obtain records from Dr. Marion's office for review 4. Chronically maintained on losartan and fluorinef with caution 5. 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 Thank you for consultative opportunity
[2017-12-04] MEDS: PATIENT'S OWN MEDICATION (NON-FORMULARY) (Umeclidinium Brm/Vilanterol Tr [Anoro Ellipta 62 IH SCH (10:07)
[2017-12-04] MEDS: TIOTROPIUM BROMIDE 18 MCG/INH (DEVICE W/ 5 CAPSULES) IH SCH (10:07)
--- NOTE | 2017-12-04 10:42 | PN ---
Progress Note (short form) - Note Progress Note: PULMONARY CONSULTATION DICTATED 12/04/17 IMP COPD EXACERBATION LIKELY URI MILD MEDIASTINAL ADENOPATHY ? REACTIVE R HILAR PULMONARY NODULE VS NODE HTN H/O ORTHOSTATIC HYPTENSION BPH PLAN IV STEROIDS O2 INHALED BRONCHODILATORS ABX O2 SAT AT REST AND POST EXERCISE ON RA F/U CHEST CT OUTPATIENT DR BASS Problem List - Problems (1) BPH (benign prostatic hyperplasia) Code(s): N40.0 - BENIGN PROSTATIC HYPERPLASIA WITHOUT LOWER URINRY TRACT SYMP Qualifiers: Lower urinary tract symptom detail: unspecified (2) COPD with acute exacerbation Code(s): J44.1 - CHRONIC OBSTRUCTIVE PULMONARY DISEASE W (ACUTE) EXACERBATION (3) Chest pain Code(s): R07.9 - CHEST PAIN, UNSPECIFIED Qualifiers: Chest pain type: unspecified Qualified Code(s): R07.9 - Chest pain, unspecified (4) Orthostatic hypotension Code(s): I95.1 - ORTHOSTATIC HYPOTENSION
[2017-12-04] MEDS: ARFORMOTEROL TARTRATE 15 MCG/2 ML VIAL NEB SCH ×2 (10:55→20:47)
[2017-12-04 11:06] LABS: BASO % 0.4 % (0-2.0); HEMATOCRIT 43.2 % (35.4-49); HEMOGLOBIN 14.7 GM/dl (11.7-16.9); LYMPH % 20.6 % (8-40); MCH 29.5 pg (25.7-33.7); MEAN CELL VOLUME 86.8 fl (80-96); MEAN PLT VOLUME 9.2 fl (7.5-11.1); MONO % 13.6 % (3.8-10.2); NEUT % 65.4 % (42.8-82.8); PLATELET COUNT 190 K/MM3 (134-434); RBC 4.98 M/mm3 (4.00-5.60); RDW 13.4 % (11.9-15.9); WHITE BLOOD COUNT 8.5 K/mm3 (4.0-10.8)
--- NOTE | 2017-12-04 11:24 | CONS ---
DATE OF CONSULTATION: 12/04/2017 REFERRING PHYSICIAN: Fartun Barillas NP HISTORY: The patient is a 72-year-old [place] male with a past medical history of COPD maintained on inhaled bronchodilators, not O2 dependent, hypertension admitted to [facility] with the complaint of increasing shortness of breath, dyspnea on exertion, and chest tightness. The patient recently had a URI approximately 1 week ago. At the time, he was placed on prednisone 40 mg as well as an antibiotic. Initially he started feeling some improvement, but yesterday he started developing increasing shortness of breath and marked dyspnea on exertion. He denied any chest pain, although complained of chest tightness. Denied any fevers, chills, nausea, hemoptysis. He had a cough productive acutely of yellow sputum. The patient denies any fevers on the day of admission but had a fever a few days prior to admission. He denies any recent travel. 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 He denies any history of respiratory failure in the past requiring ventilatory support. PAST MEDICAL HISTORY: Again, includes COPD as well as hypertension. REVIEW OF SYSTEMS: Positive shortness of breath, positive dyspnea on exertion, positive cough, positive chest tightness, positive wheezing, positive fever. No chills, no hemoptysis, no abdominal pain, no lower extremity edema. CURRENT MEDICATIONS: Include Anoro Ellipta, Solu-Medrol 40 q.6, Spiriva, Cozaar, Brovana, Vantin, Crestor, Nitrostat, aspirin, Protonix. SOCIAL HISTORY: Born in [place]. Moved to the [place] years ago. 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 Positive smoker. Quit 6 years ago. PHYSICAL EXAMINATION: General: The patient is a thin [place] male awake and alert currently in no acute distress. Vital Signs: He is currently afebrile. Blood pressure 138/94, respiratory rate 20, O2 saturation 100% on 2 L. HEENT: Normocephalic and atraumatic. Neck: Supple. Heart: Regular S1, S2. Chest: A few scattered bilateral wheezes. Abdomen: Soft. Bowel sounds are positive. Extremities: No cyanosis or edema. LABORATORIES: WBC 9.5, hemoglobin 15.8, hematocrit 48.6 with a platelet count pending. INR 0.89. Chemistries: BUN 15, creatinine 1.2, MB fraction 11.4. Troponin less than 0.02. Chest CT reveals COPD changes bilaterally, emphysematous changes bilaterally. There was a small, solid nodule 3-4 mm in the right lung apex, a 6-mm nodule in the superior segment of the right lower then a 5-mm nodule, noncalcified in the left upper lobe. There is also some mild mediastinal adenopathy. There is a left paratracheal lymph node 2.3 cm x 1.4 cm borderline and a pretracheal 1.4 cm x 1 cm. IMPRESSION: 1. Acute exacerbation of chronic obstructive pulmonary disease likely secondary to recent upper respiratory infection. 2. Underlying cardiac component. 3. Hypertension. 4. Mediastinal adenopathy. 5. Possible right paratracheal node and/or nodule. PLAN: Review previous CAT scans to see if these findings were present previous. Otherwise, consider follow up chest CT in 2-3 months and/or PET scan. Continue inhaled bronchodilators. Supplemental O2. Check O2 saturation at rest and post exercise to determine if the patient is a candidate for home O2 as well as continue IV steroids. PATRICIA BASS M.D. [id number]
[2017-12-04] MEDS: guaiFENesin 600 MG TABLET.ER (FP) PO SCH ×2 (13:10→21:24)
--- NOTE | 2017-12-04 16:54 | EKG ---
Test Reason : Blood Pressure : / mmHG Vent. Rate : 062 BPM Atrial Rate : 062 BPM P-R Int : 208 ms QRS Dur : 072 ms QT Int : 402 ms P-R-T Axes : 071 067 083 degrees QTc Int : 408 ms NORMAL SINUS RHYTHM ? SEPTAL INFARCT , AGE UNDETERMINED WHEN COMPARED WITH ECG OF 03-DEC-2017 03:56, PREMATURE VENTRICULAR COMPLEXES ARE NO LONGER PRESENT Confirmed by MD ELLIOT, NAWAF ([id number]) on 12/04/2017 4:54:12 PM Referred By: SUHAIL Confirmed By:NAWAF ZARATE MD
[2017-12-04] MEDS: PATIENT'S OWN MEDICATION (NON-FORMULARY) (Silodosin [Rapaflo] 8 MG) PO SCH (21:24)
[2017-12-04] MEDS: ROSUVASTATIN CA 20 MG TABLET (FP) PO SCH (21:24)
[2017-12-05] MEDS: methylPREDNISolone NA SUCC 40 MG/1 ML VIAL IVPUSH SCH ×4 (03:55→21:42)
[2017-12-05] MEDS: LOSARTAN POTASSIUM 25 MG TABLET PO SCH ×2 (06:16→09:56)
--- NOTE | 2017-12-05 07:58 | PN ---
Progress Note, Physician History of Present Illness: pulmonary alert,no change ,comfortable at rest very dyspneic with min exertion,-cp,+ wheezes - Current Medication List Current Medications: Active Medications Arformoterol Tartrate (Brovana (Restricted To Pulmonology/Resp) -) 1 amp NEB RBID [facility] Last Admin: 12/04/17 20:47 Dose: 1 amp Aspirin (Asa -) 81 mg PO DAILY [facility] Last Admin: 12/04/17 09:56 Dose: 81 mg Cefpodoxime Proxetil (Vantin -) 200 mg PO BID [facility] Last Admin: 12/04/17 21:25 Dose: 200 mg Guaifenesin (Mucinex -) 600 mg PO BID [facility] Last Admin: 12/04/17 21:24 Dose: 600 mg Losartan Potassium (Cozaar -) 25 mg PO DAILY [facility] Last Admin: 12/05/17 06:16 Dose: 25 mg Methylprednisolone Sodium Succinate (Solu-Medrol -) 40 mg IVPUSH Q6H-IV [facility] Last Admin: 12/05/17 03:55 Dose: 40 mg Nitroglycerin (Nitrostat -) 0.4 mg SL Q5M PRN PRN Reason: FOR CHEST PAIN Last Admin: 12/04/17 03:10 Dose: 0.4 mg Non-Formulary Medication (Umeclidinium Brm/Vilanterol Tr [Anoro Ellipta 62.5-25 Mcg Inh]) 1 each IH DAILY [facility] Last Admin: 12/04/17 10:07 Dose: 1 each Non-Formulary Medication (Silodosin [Rapaflo]) 8 mg PO HS [facility] Last Admin: 12/04/17 21:24 Dose: 8 mg Pantoprazole Sodium (Protonix -) 40 mg PO DAILY [facility] Last Admin: 12/04/17 09:56 Dose: 40 mg Rosuvastatin Calcium (Crestor -) 20 mg PO HS [facility] Last Admin: 12/04/17 21:24 Dose: 20 mg Tiotropium Benedict (Spiriva -) 1 puff IH DAILY [facility] Last Admin: 12/04/17 10:07 Dose: 1 puff - Objective Vital Signs: Vital Signs Temperature 97.7 F 12/05/17 06:00 Pulse Rate 80 12/05/17 06:00 Respiratory Rate 19 12/05/17 06:00 Blood Pressure 172/110 12/05/17 06:00 O2 Sat by Pulse Oximetry (%) 100 12/05/17 06:29 Constitutional: Yes: Well Nourished, Calm Eyes: Yes: WNL HENT: Yes: WNL Neck: Yes: WNL Cardiovascular: Yes: Regular Rate and Rhythm, S1, S2 Respiratory: Yes: Wheezes (few wheezes) Gastrointestinal: Yes: Normal Bowel Sounds, Soft Extremities: Yes: WNL Edema: No Labs: CBC, BMP Problem List - Problems (1) BPH (benign prostatic hyperplasia) Code(s): N40.0 - BENIGN PROSTATIC HYPERPLASIA WITHOUT LOWER URINRY TRACT SYMP Qualifiers: Lower urinary tract symptom detail: unspecified (2) COPD with acute exacerbation Code(s): J44.1 - CHRONIC OBSTRUCTIVE PULMONARY DISEASE W (ACUTE) EXACERBATION (3) Chest pain Code(s): R07.9 - CHEST PAIN, UNSPECIFIED Qualifiers: Chest pain type: unspecified Qualified Code(s): R07.9 - Chest pain, unspecified (4) Orthostatic hypotension Code(s): I95.1 - ORTHOSTATIC HYPOTENSION Assessment/Plan IMP COPD EXACERBATION LIKELY URI MILD MEDIASTINAL ADENOPATHY ? REACTIVE R HILAR PULMONARY NODULE VS NODE HTN H/O ORTHOSTATIC HYPTENSION BPH PLAN CONTINUE IV STEROIDS O2 INHALED BRONCHODILATORS ABX O2 SAT AT REST AND POST EXERCISE ON RA F/U CHEST CT OUTPATIENT PT REQUIRES INPATIENT CARE DR BASS Problem List - Problems (1) BPH (benign prostatic hyperplasia) Code(s): N40.0 - BENIGN PROSTATIC HYPERPLASIA WITHOUT LOWER URINRY TRACT SYMP Qualifiers: Lower urinary tract symptom detail: unspecified (2) COPD with acute exacerbation Code(s): J44.1 - CHRONIC OBSTRUCTIVE PULMONARY DISEASE W (ACUTE) EXACERBATION (3) Chest pain Code(s): R07.9 - CHEST PAIN, UNSPECIFIED Qualifiers: Chest pain type: unspecified Qualified Code(s): R07.9 - Chest pain, unspecified (4) Orthostatic hypotension Code(s): I95.1 - ORTHOSTATIC HYPOTENSION
[2017-12-05] MEDS: ARFORMOTEROL TARTRATE 15 MCG/2 ML VIAL NEB SCH ×2 (09:00→21:42)
--- NOTE | 2017-12-05 09:17 | PN ---
Progress Note, Physician History of Present Illness: Chest tightness, cough, wheeze and shortness of breath slowly improving with treatment. BP elevated and fluorinef d/andrzej. - Current Medication List Current Medications: Active Medications Arformoterol Tartrate (Brovana (Restricted To Pulmonology/Resp) -) 1 amp NEB RBID [facility] Last Admin: 12/04/17 20:47 Dose: 1 amp Aspirin (Asa -) 81 mg PO DAILY [facility] Last Admin: 12/04/17 09:56 Dose: 81 mg Cefpodoxime Proxetil (Vantin -) 200 mg PO BID [facility] Last Admin: 12/04/17 21:25 Dose: 200 mg Guaifenesin (Mucinex -) 600 mg PO BID [facility] Last Admin: 12/04/17 21:24 Dose: 600 mg Losartan Potassium (Cozaar -) 25 mg PO DAILY [facility] Last Admin: 12/05/17 06:16 Dose: 25 mg Methylprednisolone Sodium Succinate (Solu-Medrol -) 40 mg IVPUSH Q6H-IV [facility] Last Admin: 12/05/17 03:55 Dose: 40 mg Nitroglycerin (Nitrostat -) 0.4 mg SL Q5M PRN PRN Reason: FOR CHEST PAIN Last Admin: 12/04/17 03:10 Dose: 0.4 mg Non-Formulary Medication (Umeclidinium Brm/Vilanterol Tr [Anoro Ellipta 62.5-25 Mcg Inh]) 1 each IH DAILY [facility] Last Admin: 12/04/17 10:07 Dose: 1 each Non-Formulary Medication (Silodosin [Rapaflo]) 8 mg PO HS [facility] Last Admin: 12/04/17 21:24 Dose: 8 mg Pantoprazole Sodium (Protonix -) 40 mg PO DAILY [facility] Last Admin: 12/04/17 09:56 Dose: 40 mg Rosuvastatin Calcium (Crestor -) 20 mg PO HS [facility] Last Admin: 12/04/17 21:24 Dose: 20 mg Tiotropium [place] (Spiriva -) 1 puff IH DAILY [facility] Last Admin: 12/04/17 10:07 Dose: 1 puff - Objective Vital Signs: Vital Signs Temperature 97.7 F 12/05/17 06:00 Pulse Rate 80 12/05/17 06:00 Respiratory Rate 19 12/05/17 06:00 Blood Pressure 172/110 12/05/17 06:00 O2 Sat by Pulse Oximetry (%) 100 12/05/17 06:29 Constitutional: Yes: No Distress, Calm, Thin Neck: Yes: Supple Cardiovascular: Yes: Regular Rate and Rhythm Respiratory: Yes: Regular, Diminished, On Nasal O2 Gastrointestinal: Yes: Normal Bowel Sounds, Soft Edema: No Labs: CBC, BMP 12/04/17 07:45 12/04/17 07:45 INR, PTT INR 0.89 (0.82-1.09) 12/03/17 04:25 - ....Imaging EKG: Report Reviewed (NSR @ 62) Problem List - Problems (1) Labile essential hypertension Code(s): I10 - ESSENTIAL (PRIMARY) HYPERTENSION (2) BPH (benign prostatic hyperplasia) Code(s): N40.0 - BENIGN PROSTATIC HYPERPLASIA WITHOUT LOWER URINRY TRACT SYMP Qualifiers: Lower urinary tract symptom detail: unspecified (3) COPD with acute exacerbation Code(s): J44.1 - CHRONIC OBSTRUCTIVE PULMONARY DISEASE W (ACUTE) EXACERBATION (4) Chest pain Code(s): R07.9 - CHEST PAIN, UNSPECIFIED Qualifiers: Chest pain type: unspecified Qualified Code(s): R07.9 - Chest pain, unspecified (5) Orthostatic hypotension Code(s): I95.1 - ORTHOSTATIC HYPOTENSION Assessment/Plan /04/2018 Echo: Normal LV size and fxn, abnl LV compliance, mild AR, tr MR 1. Acute exacerbation of COPD 2. Acute on chronic hypoxic failure 3. Right hilar pulmonary nodule 4. Atypical chest tightness referable to above 5. Labile hypertension with orthostasis 6. Hyperlipidemia 7. BPH P:1. Ruled out for [place] 2. IV steroids with GI protection, BD, O2 to maintain saO2>90%, empiric abx course 3. Obtain records from Dr. Marion's office for review, patient to request 4. Continue ASA 81 qd, Crestor 20 qhs and losartan 25 qd as tolerated 5. 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
[2017-12-05] MEDS ORDERED: ALBUTEROL SO4 0.083% IH SOL 2.5 MG/3 ML VIAL.NEB. NEB ONE (09:53)
[2017-12-05] MEDS: PANTOPRAZOLE 40 MG TABLET (FP) PO SCH (09:56)
[2017-12-05] MEDS: ASPIRIN 81 MG CHEWABLE TABLETS PO SCH (09:56)
[2017-12-05] MEDS: guaiFENesin 600 MG TABLET.ER (FP) PO SCH ×2 (09:57→21:42)
[2017-12-05] MEDS ORDERED: PT OWN MED DRAWER 7, Y5N ONE ×3 (10:07→21:37)
[2017-12-05] MEDS: TIOTROPIUM BROMIDE 18 MCG/INH (DEVICE W/ 5 CAPSULES) IH SCH (10:34)
[2017-12-05] MEDS: PATIENT'S OWN MEDICATION (NON-FORMULARY) (Umeclidinium Brm/Vilanterol Tr [Anoro Ellipta 62 IH SCH (10:34)
[2017-12-05] MEDS: CEFPODOXIME PROXETIL 200 MG TABLET [NF] PO SCH ×2 (10:34→21:43)
--- NOTE | 2017-12-05 14:17 | PN ---
Physical Exam: SUBJECTIVE: Patient seen and examined, reports ongoing cough and shortness of breath upon exertion. OBJECTIVE:Patient is a 72 y/o male with a past medical history of COPD, orthostatic hypotension, and BPH. Patient was admitted from the emergency department for copd excerbation. Vital Signs Period Temp Pulse Resp BP Sys/Schafer Pulse Ox Last 24 Hr 97.4 F-98.6 F 72-105 16-20 154-180/91-110 100-100 GENERAL: The patient is awake, alert, and fully oriented, in no acute distress. HEAD: Normal with no signs of trauma. EYES: PERRL, extraocular movements intact, sclera anicteric, conjunctiva clear. No ptosis. ENT: Ears normal, nares patent, oropharynx clear without exudates, moist mucous membranes. NECK: Trachea midline, full range of motion, supple. LUNGS: Breath sounds equal, bilateral inspiratory wheeze to apexes, diminished to bases, no crackles, no accessory muscle use. HEART: Regular rate and rhythm, S1, S2 without murmur, rub or gallop. ABDOMEN: Soft, nontender, nondistended, normoactive bowel sounds, no guarding, no rebound, no hepatosplenomegaly, no masses. EXTREMITIES: 2+ pulses, warm, well-perfused, no edema. NEUROLOGICAL: Cranial nerves II through XII grossly intact. Normal speech, gait not observed. PSYCH: Normal mood, normal affect. SKIN: Warm, dry, normal turgor, no rashes or lesions noted Active Medications Generic Name Dose Route Start Last Admin Trade Name Freq PRN Reason Stop Dose Admin Arformoterol Tartrate 1 amp 12/04/17 10:00 12/05/17 09:00 Surinder (Restricted To Pulmonology/Resp) - NEB 1 amp RBID [facility] Administration Aspirin 81 mg 12/04/17 10:00 12/05/17 09:56 Asa - PO 81 mg DAILY [facility] Administration Cefpodoxime Proxetil 200 mg 12/03/17 22:00 12/05/17 10:34 Vantin - PO 200 mg BID [facility] Administration Guaifenesin 600 mg 12/04/17 11:30 12/05/17 09:57 Mucinex - PO 600 mg BID [facility] Administration Losartan Potassium 25 mg 12/03/17 10:00 12/05/17 09:56 Cozaar - PO 25 mg DAILY [facility] Administration Methylprednisolone Sodium Succinate 40 mg 12/04/17 09:00 12/05/17 09:56 Solu-Medrol - IVPUSH 40 mg Q6H-IV [facility] Administration Nitroglycerin 0.4 mg 12/04/17 03:13 12/04/17 03:10 Nitrostat - SL 0.4 mg Q5M PRN Administration FOR CHEST PAIN Non-Formulary Medication 1 each 12/04/17 10:00 12/05/17 10:34 Umeclidinium Brm/Vilanterol Tr [Anoro Ellipta 62.5-25 Mcg Inh] IH 1 each DAILY [facility] Administration Non-Formulary Medication 8 mg 12/04/17 22:00 12/04/17 21:24 Silodosin [Rapaflo] PO 8 mg HS [facility] Administration Pantoprazole Sodium 40 mg 12/03/17 10:00 12/05/17 09:56 Protonix - PO 40 mg DAILY [facility] Administration Rosuvastatin Calcium 20 mg 12/04/17 22:00 12/04/17 21:24 Crestor - PO 20 mg HS [facility] Administration Tiotropium [place] 1 puff 12/04/17 10:00 12/05/17 10:34 Spiriva - IH 1 puff DAILY [facility] Administration IMAGING ct of chest w/contrast: no evidence of PE, PNA, or pulmonary edema, advanced centrilobar emphysematous changes, 1.4 x 1.2cm nodular soft tissue in the right hilar region, ? neoplasm. ASSESSMENT/PLAN: 1) pulm copd excerbation - wheezing still noted on exam continue solumedrol 40mg q6h, brovana, and spirva - pt was started on vantin 12/02/17 by PCP for suspicous bacterial bronchitis. - continous spo2 monitoring, supplemental O2 PRN, keep spo2 above 92% - pulmonary consulted and following 2) cardiovascular chest pain r/o acs - troponin x 3 wnl, no events on telemetry event - echo ef 70%, grade I diastolic dysfunctin orthostatic hypotension - continue home dose cozaar, strict b/p monitoring 3) BPH - continue rapaflo, monitor for signs of urinary retention f/e/n - vegeterian diet - replete lytes prn ppx - protonix - heparin - oob - scd dispo: pt requires inpatient telemetry Problem List - Problems (1) COPD with acute exacerbation Code(s): J44.1 - CHRONIC OBSTRUCTIVE PULMONARY DISEASE W (ACUTE) EXACERBATION (2) Orthostatic hypotension Code(s): I95.1 - ORTHOSTATIC HYPOTENSION (3) Chest pain Code(s): R07.9 - CHEST PAIN, UNSPECIFIED Qualifiers: Chest pain type: unspecified Qualified Code(s): R07.9 - Chest pain, unspecified (4) BPH (benign prostatic hyperplasia) Code(s): N40.0 - BENIGN PROSTATIC HYPERPLASIA WITHOUT LOWER URINRY TRACT SYMP Qualifiers: Lower urinary tract symptom detail: unspecified Visit type - Emergency Visit Emergency Visit: Yes ED Registration Date: 12/05/17 Care time: The patient presented to the Emergency Department on the above date and was hospitalized for further evaluation of their emergent condition. - New Patient This patient is new to me today: No - Critical Care Critical Care patient: No - Discharge Referral Referred to [facility] Med [facility].C.: No
[2017-12-05] MEDS: ROSUVASTATIN CA 20 MG TABLET (FP) PO SCH (21:42)
[2017-12-05] MEDS: PATIENT'S OWN MEDICATION (NON-FORMULARY) (Silodosin [Rapaflo] 8 MG) PO SCH (21:43)
[2017-12-06] MEDS: ALBUTEROL SO4 0.083% IH SOL 2.5 MG/3 ML VIAL.NEB. NEB PRN (00:29)
[2017-12-06] MEDS: methylPREDNISolone NA SUCC 40 MG/1 ML VIAL IVPUSH SCH ×4 (03:09→21:39)
--- NOTE | 2017-12-06 07:29 | PN ---
Progress Note, Physician History of Present Illness: pulmonary alert,slowly improving,still dyspneic with min exertion,dry cough - Current Medication List Current Medications: Active Medications Albuterol Sulfate (Ventolin 0.083% Nebulizer Soln -) 1 amp NEB Q4H PRN PRN Reason: SHORT OF BREATH/WHEEZING Last Admin: 12/06/17 00:29 Dose: 1 amp Arformoterol Tartrate (Brovana (Restricted To Pulmonology/Resp) -) 1 amp NEB RBID [facility] Last Admin: 12/05/17 21:42 Dose: 1 amp Aspirin (Asa -) 81 mg PO DAILY [facility] Last Admin: 12/05/17 09:56 Dose: 81 mg Cefpodoxime Proxetil (Vantin -) 200 mg PO BID [facility] Last Admin: 12/05/17 21:43 Dose: 200 mg Guaifenesin (Mucinex -) 600 mg PO BID [facility] Last Admin: 12/05/17 21:42 Dose: 600 mg Losartan Potassium (Cozaar -) 25 mg PO DAILY [facility] Last Admin: 12/05/17 09:56 Dose: 25 mg Methylprednisolone Sodium Succinate (Solu-Medrol -) 40 mg IVPUSH Q6H-IV [facility] Last Admin: 12/06/17 03:09 Dose: 40 mg Nitroglycerin (Nitrostat -) 0.4 mg SL Q5M PRN PRN Reason: FOR CHEST PAIN Last Admin: 12/04/17 03:10 Dose: 0.4 mg Non-Formulary Medication (Umeclidinium Brm/Vilanterol Tr [Anoro Ellipta 62.5-25 Mcg Inh]) 1 each IH DAILY [facility] Last Admin: 12/05/17 10:34 Dose: 1 each Non-Formulary Medication (Silodosin [Rapaflo]) 8 mg PO HS [facility] Last Admin: 12/05/17 21:43 Dose: 8 mg Pantoprazole Sodium (Protonix -) 40 mg PO DAILY [facility] Last Admin: 12/05/17 09:56 Dose: 40 mg Rosuvastatin Calcium (Crestor -) 20 mg PO HS [facility] Last Admin: 12/05/17 21:42 Dose: 20 mg Tiotropium [place] (Spiriva -) 1 puff IH DAILY [facility] Last Admin: 12/05/17 10:34 Dose: 1 puff - Objective Vital Signs: Vital Signs Temperature 97.5 F L 02/10/18 06:00 Pulse Rate 83 12/06/17 06:00 Respiratory Rate 19 12/06/17 06:00 Blood Pressure 145/99 12/06/17 06:00 O2 Sat by Pulse Oximetry (%) 99 12/06/17 06:00 Constitutional: Yes: Calm, Thin Eyes: Yes: WNL HENT: Yes: WNL Neck: Yes: WNL Cardiovascular: Yes: Regular Rate and Rhythm, S1, S2 Respiratory: Yes: Rales (few crackles at bases,with few scattered shira wheezes) Gastrointestinal: Yes: Normal Bowel Sounds, Soft Extremities: Yes: WNL Edema: No Labs: CBC, BMP Problem List - Problems (1) BPH (benign prostatic hyperplasia) Code(s): N40.0 - BENIGN PROSTATIC HYPERPLASIA WITHOUT LOWER URINRY TRACT SYMP Qualifiers: Lower urinary tract symptom detail: unspecified (2) COPD with acute exacerbation Code(s): J44.1 - CHRONIC OBSTRUCTIVE PULMONARY DISEASE W (ACUTE) EXACERBATION (3) Chest pain Code(s): R07.9 - CHEST PAIN, UNSPECIFIED Qualifiers: Chest pain type: unspecified Qualified Code(s): R07.9 - Chest pain, unspecified (4) Orthostatic hypotension Code(s): I95.1 - ORTHOSTATIC HYPOTENSION Assessment/Plan IMP COPD EXACERBATION LIKELY URI MILD MEDIASTINAL ADENOPATHY ? REACTIVE R HILAR PULMONARY NODULE VS NODE HTN H/O ORTHOSTATIC HYPTENSION BPH PLAN CONTINUE IV STEROIDS O2 INHALED BRONCHODILATORS ABX O2 SAT AT REST AND POST EXERCISE ON RA F/U CHEST CT OUTPATIENT ADD SHARON BASS Problem List - Problems (1) BPH (benign prostatic hyperplasia) Code(s): N40.0 - BENIGN PROSTATIC HYPERPLASIA WITHOUT LOWER URINRY TRACT SYMP Qualifiers: Lower urinary tract symptom detail: unspecified (2) COPD with acute exacerbation Code(s): J44.1 - CHRONIC OBSTRUCTIVE PULMONARY DISEASE W (ACUTE) EXACERBATION (3) Chest pain Code(s): R07.9 - CHEST PAIN, UNSPECIFIED Qualifiers: Chest pain type: unspecified Qualified Code(s): R07.9 - Chest pain, unspecified (4) Orthostatic hypotension Code(s): I95.1 - ORTHOSTATIC HYPOTENSION
[2017-12-06 07:58] LABS: BASO % 0.2 % (0-2.0); HEMATOCRIT 46.3 % (35.4-49); HEMOGLOBIN 15.9 GM/dl (11.7-16.9); LYMPH % 8.9 % (8-40); MCH 30.1 pg (25.7-33.7); MCHC 34.2 g/dl (32.0-35.9); MEAN CELL VOLUME 88.1 fl (80-96); MEAN PLT VOLUME 8.9 fl (7.5-11.1); MONO % 5.5 % (3.8-10.2); NEUT % 85.4 % (42.8-82.8); PLATELET COUNT 218 K/MM3 (134-434); RBC 5.26 M/mm3 (4.00-5.60); RDW 13.1 % (11.9-15.9); WHITE BLOOD COUNT 15.6 K/mm3 (4.0-10.8)
[2017-12-06 08:17] LABS: ALBUMIN 3.6 g/dl (3.5-5.0); ALK PHOS 53 U/L (32-92); ANION GAP 8 (8-16); BILIRUBIN,TOTAL 0.7 mg/dl (0.2-1.0); BLOOD UREA NITROGEN 22 mg/dl (7-18); CALCIUM 9.3 mg/dl (8.4-10.2); CHLORIDE 98 mmol/L (98-107); CO2 26 mmol/L (22-28); CREATININE 1.2 mg/dl (0.6-1.3); GLUCOSE,RANDOM 117 mg/dl (74-106); MAGNESIUM 2.3 mg/dL (1.8-2.4); POTASSIUM 4.8 mmol/L (3.5-5.1); SGOT/AST 64 U/L (10-42); SGPT/ALT 36 U/L (10-40); SODIUM 132 mmol/L (136-145); TOT PROT 6.8 g/dl (6.4-8.3)
[2017-12-06] MEDS ORDERED: PT OWN MED DRAWER 7, Y5N ONE ×4 (09:06→21:09)
[2017-12-06] MEDS: ARFORMOTEROL TARTRATE 15 MCG/2 ML VIAL NEB SCH ×2 (09:13→21:40)
[2017-12-06] MEDS: LOSARTAN POTASSIUM 25 MG TABLET PO SCH (09:14)
[2017-12-06] MEDS: PANTOPRAZOLE 40 MG TABLET (FP) PO SCH (09:14)
[2017-12-06] MEDS: ASPIRIN 81 MG CHEWABLE TABLETS PO SCH (09:14)
[2017-12-06] MEDS: TIOTROPIUM BROMIDE 18 MCG/INH (DEVICE W/ 5 CAPSULES) IH SCH (09:14)
[2017-12-06] MEDS: guaiFENesin 600 MG TABLET.ER (FP) PO SCH ×2 (09:14→21:40)
--- NOTE | 2017-12-06 09:44 | PN ---
Physical Exam: SUBJECTIVE: Patient seen and examined Pt reports sob improving slowly, less coughing, denies cp,palpitations, dizziness or weakness. Pt c/o constipation, denies abdominal pain, N/V or urinary symptoms. OBJECTIVE: Vital Signs Period Temp Pulse Resp BP Sys/Schafer Pulse Ox Last 24 Hr 97.4 F-98 F 83-105 19-20 145-180/92-105 95-100 GENERAL: The patient is awake, alert, and fully oriented, in no acute distress. HEAD: Normal with no signs of trauma. EYES: PERRL, extraocular movements intact, sclera anicteric, conjunctiva clear. No ptosis. ENT: Ears normal, nares patent, oropharynx clear without exudates, moist mucous membranes. NECK: Trachea midline, full range of motion, supple. LUNGS: Breath sounds equal, + wheezes, positive crackles, no accessory muscle use. HEART: Regular rate and rhythm, S1, S2 without murmur, rub or gallop. ABDOMEN: Soft, non-tender, non-distended, normoactive bowel sounds, no guarding , no rebound, no hepatosplenomegaly, no masses. EXTREMITIES: 2+ pulses, warm, well-perfused, no edema. NEUROLOGICAL: Cranial nerves II through XII grossly intact. Normal speech, gait not observed. PSYCH: Normal mood, normal affect. SKIN: Warm, dry, normal turgor, no rashes or lesions noted Laboratory Results - last 24 hr 12/03/17 12/03/17 12/04/17 04:26 04:26 03:09 WBC RBC Hgb Hct MCV MCH MCHC RDW Plt Count MPV Neutrophils % Lymphocytes % Monocytes % Eosinophils % Basophils % Sodium Potassium Chloride Carbon Dioxide Anion Gap BUN Creatinine Creat Clearance w eGFR Random Glucose Calcium Magnesium Total Bilirubin AST ALT Alkaline Phosphatase Creatine Kinase TNP Troponin I TNP TNP Total Protein Albumin 12/04/17 12/06/17 12/06/17 03:09 07:35 07:35 WBC 15.6 H D RBC 5.26 Hgb 15.9 Hct 46.3 MCV 88.1 MCH 30.1 MCHC 34.2 RDW 13.1 Plt Count 218 MPV 8.9 Neutrophils % 85.4 H D Lymphocytes % 8.9 D Monocytes % 5.5 Eosinophils % 0.0 Basophils % 0.2 Sodium 132 L Potassium 4.8 D Chloride 98 Carbon Dioxide 26 Anion Gap 8 BUN 22 H D Creatinine 1.2 Creat Clearance w eGFR 59.68 Random Glucose 117 H Calcium 9.3 Magnesium 2.3 D Total Bilirubin 0.7 D AST 64 H D ALT 36 D Alkaline Phosphatase 53 D Creatine Kinase TNP Troponin I Total Protein 6.8 Albumin 3.6 Active Medications Generic Name Dose Route Start Last Admin Trade Name Freq PRN Reason Stop Dose Admin Albuterol Sulfate 1 amp 12/05/17 14:20 12/06/17 00:29 Ventolin 0.083% Nebulizer Soln - NEB 1 amp Q4H PRN Administration SHORT OF BREATH/WHEEZING Arformoterol Tartrate 1 amp 12/04/17 10:00 12/06/17 09:13 Brovana (Restricted To Pulmonology/Resp) - NEB 1 amp RBID [facility] Administration Aspirin 81 mg 12/04/17 10:00 12/06/17 09:14 Asa - PO 81 mg DAILY [facility] Administration Cefpodoxime Proxetil 200 mg 12/03/17 22:00 12/05/17 21:43 Vantin - PO 200 mg BID [facility] Administration Guaifenesin 600 mg 12/04/17 11:30 12/06/17 09:14 Mucinex - PO 600 mg BID [facility] Administration Losartan Potassium 25 mg 12/03/17 10:00 12/06/17 09:14 Cozaar - PO 25 mg DAILY [facility] Administration Methylprednisolone Sodium Succinate 40 mg 12/04/17 09:00 12/06/17 09:13 Solu-Medrol - IVPUSH 40 mg Q6H-IV [facility] Administration Nitroglycerin 0.4 mg 12/04/17 03:13 12/04/17 03:10 Nitrostat - SL 0.4 mg Q5M PRN Administration FOR CHEST PAIN Non-Formulary Medication 1 each 12/04/17 10:00 12/05/17 10:34 Umeclidinium Brm/Vilanterol Tr [Anoro Ellipta 62.5-25 Mcg Inh] IH 1 each DAILY [facility] Administration Non-Formulary Medication 8 mg 12/04/17 22:00 12/05/17 21:43 Silodosin [Rapaflo] PO 8 mg HS [facility] Administration Pantoprazole Sodium 40 mg 12/03/17 10:00 12/06/17 09:14 Protonix - PO 40 mg DAILY [facility] Administration Polyethylene Glycol 17 gm 12/06/17 10:00 Miralax (For Daily Use) - PO DAILY [facility] Roflumilast 500 mcg 12/06/17 10:00 Daliresp - PO DAILY [facility] Rosuvastatin Calcium 20 mg 12/04/17 22:00 12/05/17 21:42 Crestor - PO 20 mg HS [facility] Administration Tiotropium [place] 1 puff 12/04/17 10:00 12/06/17 09:14 Spiriva - IH 1 puff DAILY [facility] Administration * IMAGING CTA : No evidence of PE, PNA, or pulmonary edema, advanced centrilobar emphysematous changes, 1.4 x 1.2cm nodular soft tissue in the right hilar region , ? neoplasm. CxR: No acute pathology ASSESSMENT/PLAN: Patient is a 72 y/o male with a past medical history of COPD, orthostatic hypotension, and BPH. Patient was admitted from the emergency department for COPD exacerbation. *pulmonary COPD exacerbation- still wheezing - will cont on solumedrol 40mg q6h, brovana, and spirva - pt was started on vantin 12/02/17 by PCP for suspicous bacterial bronchitis. - continous spo2 monitoring, supplemental O2 PRN, keep spo2 above 92% - pulmonary consulted and following, rec Daliresp - out pt f/u on chest CT *cardiovascular chest pain- ACS ruled out - cp resolved - troponin x 3 wnl, no events on telemetry event - echo ef 70%, grade I diastolic dysfunction - cardiology following * Hx of orthostatic hypotension- BP on the high side -will increase home dose cozaar to 50mg daily - BP monitoring * BPH - continue rapaflo, - voiding without any difficulties - will monitor for signs of urinary retention * Leukocytosis - likely steroid induced - afebrile - Cxr- neg - UA - neg * Constipation - ordered Miralax *f/e/n - vegeterian diet - replete lytes prn * Hyponatremia - likely due to diuretic use - Na 131> 132 - will f/u on Counter [employer] *ppx - protonix - heparin - oob - scd Dispo: pt requires inpatient telemetry Visit type - Emergency Visit Emergency Visit: Yes ED Registration Date: 12/05/17 Care time: The patient presented to the Emergency Department on the above date and was hospitalized for further evaluation of their emergent condition. - New Patient This patient is new to me today: Yes Date on this admission: 12/06/17 - Critical Care Critical Care patient: No
[2017-12-06] MEDS: CEFPODOXIME PROXETIL 200 MG TABLET [NF] PO SCH ×2 (10:00→21:41)
[2017-12-06] MEDS: POLYETHYLENE GLYCOL 3350 119 GM BTL PO SCH (10:10)
[2017-12-06] MEDS: ROFLUMILAST 500 MCG TABLET PO SCH (10:11)
[2017-12-06] MEDS: PATIENT'S OWN MEDICATION (NON-FORMULARY) (Umeclidinium Brm/Vilanterol Tr [Anoro Ellipta 62 IH SCH (10:37)
[2017-12-06] MEDS ORDERED: LOSARTAN POTASSIUM 25 MG TABLET PO ONE (13:51)
[2017-12-06] MEDS: HEPARIN NA (PORCINE) 5,000 UNITS/ML 1ML VIAL SQ SCH ×2 (14:27→21:39)
[2017-12-06] MEDS: ROSUVASTATIN CA 20 MG TABLET (FP) PO SCH (21:40)
[2017-12-06] MEDS: PATIENT'S OWN MEDICATION (NON-FORMULARY) (Silodosin [Rapaflo] 8 MG) PO SCH (21:40)
[2017-12-07] MEDS: methylPREDNISolone NA SUCC 40 MG/1 ML VIAL IVPUSH SCH ×4 (03:54→20:58)
[2017-12-07] MEDS: ALBUTEROL SO4 0.083% IH SOL 2.5 MG/3 ML VIAL.NEB. NEB PRN ×3 (04:01→14:07)
[2017-12-07] MEDS: HEPARIN NA (PORCINE) 5,000 UNITS/ML 1ML VIAL SQ SCH (05:54)
--- NOTE | 2017-12-07 07:13 | PN ---
Progress Note, Physician History of Present Illness: pulmonary was feeling better,but developes sob with min exertion with desaturation to 87% - Current Medication List Current Medications: Active Medications Albuterol Sulfate (Ventolin 0.083% Nebulizer Soln -) 1 amp NEB Q4H PRN PRN Reason: SHORT OF BREATH/WHEEZING Last Admin: 12/07/17 04:01 Dose: 1 amp Arformoterol Tartrate (Brovana (Restricted To Pulmonology/Resp) -) 1 amp NEB RBID [facility] Last Admin: 12/06/17 21:40 Dose: 1 amp Aspirin (Asa -) 81 mg PO DAILY [facility] Last Admin: 12/06/17 09:14 Dose: 81 mg Cefpodoxime Proxetil (Vantin -) 200 mg PO BID [facility] Last Admin: 12/06/17 21:41 Dose: 200 mg Guaifenesin (Mucinex -) 600 mg PO BID [facility] Last Admin: 12/06/17 21:40 Dose: 600 mg Heparin Sodium (Porcine) (Heparin -) 5,000 unit SQ TID [facility] Last Admin: 12/07/17 05:54 Dose: 5,000 unit Losartan Potassium (Cozaar -) 50 mg PO DAILY [facility] Methylprednisolone Sodium Succinate (Solu-Medrol -) 40 mg IVPUSH Q6H-IV [facility] Last Admin: 12/07/17 03:54 Dose: 40 mg Nitroglycerin (Nitrostat -) 0.4 mg SL Q5M PRN PRN Reason: FOR CHEST PAIN Last Admin: 12/04/17 03:10 Dose: 0.4 mg Non-Formulary Medication (Umeclidinium Brm/Vilanterol Tr [Anoro Ellipta 62.5-25 Mcg Inh]) 1 each IH DAILY [facility] Last Admin: 12/06/17 10:37 Dose: 1 each Non-Formulary Medication (Silodosin [Rapaflo]) 8 mg PO HS [facility] Last Admin: 12/06/17 21:40 Dose: 8 mg Pantoprazole Sodium (Protonix -) 40 mg PO DAILY [facility] Last Admin: 12/06/17 09:14 Dose: 40 mg Polyethylene Glycol (Miralax (For Daily Use) -) 17 gm PO DAILY [facility] Last Admin: 12/06/17 10:10 Dose: 17 gm Roflumilast (Daliresp -) 500 mcg PO DAILY [facility] Last Admin: 02/10/18 10:11 Dose: 500 mcg Rosuvastatin Calcium (Crestor -) 20 mg PO HS [facility] Last Admin: 12/06/17 21:40 Dose: 20 mg Tiotropium [place] (Spiriva -) 1 puff IH DAILY [facility] Last Admin: 12/06/17 09:14 Dose: 1 puff - Objective Vital Signs: Vital Signs Temperature 98.1 F 12/07/17 05:51 Pulse Rate 99 H 12/07/17 05:51 Respiratory Rate 18 12/07/17 05:51 Blood Pressure 185/103 12/07/17 05:51 O2 Sat by Pulse Oximetry (%) 98 12/07/17 05:51 Constitutional: Yes: Calm, Mild Distress, Thin Eyes: Yes: WNL HENT: Yes: WNL Neck: Yes: WNL Cardiovascular: Yes: Regular Rate and Rhythm, S1, S2 Respiratory: Yes: Wheezes (few wheezes) Gastrointestinal: Yes: Normal Bowel Sounds, Soft Extremities: Yes: WNL Edema: No Labs: CBC, BMP Problem List - Problems (1) BPH (benign prostatic hyperplasia) Code(s): N40.0 - BENIGN PROSTATIC HYPERPLASIA WITHOUT LOWER URINRY TRACT SYMP Qualifiers: Lower urinary tract symptom detail: unspecified (2) COPD with acute exacerbation Code(s): J44.1 - CHRONIC OBSTRUCTIVE PULMONARY DISEASE W (ACUTE) EXACERBATION (3) Chest pain Code(s): R07.9 - CHEST PAIN, UNSPECIFIED Qualifiers: Chest pain type: unspecified Qualified Code(s): R07.9 - Chest pain, unspecified (4) Orthostatic hypotension Code(s): I95.1 - ORTHOSTATIC HYPOTENSION Assessment/Plan IMP COPD EXACERBATION LIKELY URI MILD MEDIASTINAL ADENOPATHY ? REACTIVE R HILAR PULMONARY NODULE VS NODE HTN H/O ORTHOSTATIC HYPTENSION BPH PLAN CONTINUE IV STEROIDS O2 INHALED BRONCHODILATORS ABX O2 SAT AT REST AND POST EXERCISE ON RA REPEAT CHEST CTA SHARON BASS Problem List - Problems (1) BPH (benign prostatic hyperplasia) Code(s): N40.0 - BENIGN PROSTATIC HYPERPLASIA WITHOUT LOWER URINRY TRACT SYMP Qualifiers: Lower urinary tract symptom detail: unspecified (2) COPD with acute exacerbation Code(s): J44.1 - CHRONIC OBSTRUCTIVE PULMONARY DISEASE W (ACUTE) EXACERBATION (3) Chest pain Code(s): R07.9 - CHEST PAIN, UNSPECIFIED Qualifiers: Chest pain type: unspecified Qualified Code(s): R07.9 - Chest pain, unspecified (4) Orthostatic hypotension Code(s): I95.1 - ORTHOSTATIC HYPOTENSION
--- NOTE | 2017-12-07 08:48 | PN ---
Physical Exam: SUBJECTIVE: Patient seen and examined. He denies chest pain, states he is still feeling short of breath with ambulation. States his sputum is a yellow color. OBJECTIVE: mildly anxious, at bedside no further chest pain, or tightness ST on cocktail server, on 2 liters of nc CTA as per pulmonary Discussed with dr. Minaya, pt now on full strength for Lovenox, pending repeat CTA Hypertensive, cozaar increased on 12/06, added Amlodopine 2.5mg today Vital Signs Period Temp Pulse Resp BP Sys/Schafer Pulse Ox Last 24 Hr 97.4 F-98.1 F 76-103 18-22 111-185/58-103 98-100 GENERAL: The patient is awake, alert, and fully oriented, in no acute distress, + anxious HEAD: Normal with no signs of trauma. EYES: PERRL, extraocular movements intact, sclera anicteric, conjunctiva clear. No ptosis. ENT: Ears normal, nares patent, oropharynx clear without exudates, moist mucous membranes. NECK: Trachea midline, full range of motion, supple. LUNGS: Breath sounds equal, no wheezing, but lungs sounds diminished. no crackles, mild accessory muscle use. HEART: Regular rate and rhythm, S1, S2 without murmur, rub or gallop. ABDOMEN: Soft, non-tender, non-distended, normoactive bowel sounds, no guarding , no rebound, no hepatosplenomegaly, no masses. EXTREMITIES: 2+ pulses, warm, well-perfused, no edema. NEUROLOGICAL: Normal speech, gait not observed. PSYCH: Normal mood, normal affect. SKIN: Warm, dry, normal turgor, no rashes or lesions noted Active Medications Generic Name Dose Route Start Last Admin Trade Name Freq PRN Reason Stop Dose Admin Albuterol Sulfate 1 amp 12/05/17 14:20 12/07/17 04:01 Ventolin 0.083% Nebulizer Soln - NEB 1 amp Q4H PRN Administration SHORT OF BREATH/WHEEZING Arformoterol Tartrate 1 amp 12/04/17 10:00 12/06/17 21:40 Brovana (Restricted To Pulmonology/Resp) - NEB 1 amp RBID ELVIRA Administration Aspirin 81 mg 12/04/17 10:00 12/06/17 09:14 Asa - PO 81 mg DAILY ELVIRA Administration Cefpodoxime Proxetil 200 mg 12/03/17 22:00 12/06/17 21:41 Vantin - PO 200 mg BID ELVIRA Administration Guaifenesin 600 mg 12/04/17 11:30 12/06/17 21:40 Mucinex - PO 600 mg BID ELV[facility]A Administration Heparin Sodium (Porcine) 5,000 unit 12/06/17 14:00 12/07/17 05:54 Heparin - SQ 5,000 unit TID ELVIRA Administration Losartan Potassium 50 mg 12/07/17 10:00 Cozaar - PO DAILY ELV[facility]A Methylprednisolone Sodium Succinate 40 mg 12/04/17 09:00 12/07/17 03:54 Solu-Medrol - IVPUSH 40 mg Q6H-IV [facility] Administration Nitroglycerin 0.4 mg 12/04/17 03:13 12/04/17 03:10 Nitrostat - SL 0.4 mg Q5M PRN Administration FOR CHEST PAIN Non-Formulary Medication 1 each 12/04/17 10:00 12/06/17 10:37 Umeclidinium Brm/Vilanterol Tr [Anoro Ellipta 62.5-25 Mcg Inh] IH 1 each DAILY ELV[facility]A Administration Non-Formulary Medication 8 mg 12/04/17 22:00 12/06/17 21:40 Silodosin [Rapaflo] PO 8 mg HS ELVIRA Administration Pantoprazole Sodium 40 mg 12/03/17 10:00 12/06/17 09:14 Protonix - PO 40 mg DAILY [facility] Administration Polyethylene Glycol 17 gm 12/06/17 10:00 12/06/17 10:10 Miralax (For Daily Use) - PO 17 gm DAILY [facility] Administration Roflumilast 500 mcg 12/06/17 10:00 12/06/17 10:11 Daliresp - PO 500 mcg DAILY [facility] Administration Rosuvastatin Calcium 20 mg 12/04/17 22:00 12/06/17 21:40 Crestor - PO 20 mg HS ELVIRA Administration Tiotropium [place] 1 puff 12/04/17 10:00 12/06/17 09:14 Spiriva - IH 1 puff DAILY EL[facility]A Administration ASSESSMENT/PLAN: Patient is a 72 year old male with a past medical history of COPD, hypertension , orthostatic hypotension, and BPH. Patient was admitted from the emergency department for COPD exacerbation. Imaging: CTA 12/07/2017: No evidence of PE CxR: No acute pathology Pulmonary COPD exacerbation, acute on chronic Less wheezing today, on 2 liters of nc, however still hypoxic with ambulation CTA repeated today by pulmonary, no PE On Solumedrol, Brovana, Spiriva On Vantin for yellow for suspicous bacterial bronchitis Monitor oxygen levels, wean off as tolerated Pulmonary closely monitoring Cardio: Chest pain ACS ruled out, no further chest pain Trops negative, Echo reviewed Cardiology following Hypertension, chronic, not at goal Losartan increased on 12/07, Norvasc 2.5mg added for htn Also given one time Norvasc 5mg cardiology following Monitor BP Hx of orthostatic hypotension BP monitoring F.E N vegeterian diet, replete lytes Hyponatremia - improving Prophy: Protonix, Heparin, SCDS, ambulation Visit type - Emergency Visit Emergency Visit: Yes ED Registration Date: 12/05/17 Care time: The patient presented to the Emergency Department on the above date and was hospitalized for further evaluation of their emergent condition. - New Patient This patient is new to me today: Yes Date on this admission: 12/07/17 - Critical Care Critical Care patient: No - Discharge Referral Referred to [facility] Med P.C.: No
[2017-12-07] MEDS ORDERED: LORazepam 0.5 MG TABLET PO PRN (08:54)
[2017-12-07 09:00] LABS: ANION GAP 9 (8-16); BLOOD UREA NITROGEN 23 mg/dl (7-18); CALCIUM 9.3 mg/dl (8.4-10.2); CHLORIDE 99 mmol/L (98-107); CO2 27 mmol/L (22-28); CREATININE 1.2 mg/dl (0.6-1.3); GLUCOSE,RANDOM 103 mg/dl (74-106); POTASSIUM 5.3 mmol/L (3.5-5.1); SODIUM 135 mmol/L (136-145)
[2017-12-07] MEDS: ARFORMOTEROL TARTRATE 15 MCG/2 ML VIAL NEB SCH ×2 (09:20→20:57)
[2017-12-07] MEDS: TIOTROPIUM BROMIDE 18 MCG/INH (DEVICE W/ 5 CAPSULES) IH SCH (09:21)
[2017-12-07] MEDS: LOSARTAN POTASSIUM 50 MG TABLET (FP) PO SCH (09:21)
[2017-12-07] MEDS: ASPIRIN 81 MG CHEWABLE TABLETS PO SCH (09:21)
[2017-12-07] MEDS: PANTOPRAZOLE 40 MG TABLET (FP) PO SCH (09:21)
[2017-12-07] MEDS: guaiFENesin 600 MG TABLET.ER (FP) PO SCH (09:21)
[2017-12-07] MEDS: ROFLUMILAST 500 MCG TABLET PO SCH (09:21)
[2017-12-07] MEDS: POLYETHYLENE GLYCOL 3350 119 GM BTL PO SCH (09:22)
[2017-12-07] MEDS: CEFPODOXIME PROXETIL 200 MG TABLET [NF] PO SCH (09:22)
[2017-12-07] MEDS: PATIENT'S OWN MEDICATION (NON-FORMULARY) (Umeclidinium Brm/Vilanterol Tr [Anoro Ellipta 62 IH SCH (09:22)
[2017-12-07] MEDS ORDERED: SODIUM POLYSTYRENE SULFONATE 15 GM/60 ML BOTTLE PO ONE (09:23)
[2017-12-07] MEDS ORDERED: PT OWN MED DRAWER 7, Y5N ONE (09:46)
[2017-12-07] MEDS ORDERED: ENOXAPARIN NA (PORCINE) 60 MG/0.6 ML DISP.SYRIN SQ SCH (10:00)
[2017-12-07 10:21] LABS: WHITE BLOOD COUNT 18.7 K/mm3 (4.0-10.8)
[2017-12-07 10:22] LABS: HEMATOCRIT 48.6 % (35.4-49); HEMOGLOBIN 16.2 GM/dl (11.7-16.9); MCH 29.4 pg (25.7-33.7); MCHC 33.3 g/dl (32.0-35.9); MEAN CELL VOLUME 88.4 fl (80-96); PLATELET COUNT 153 K/MM3 (134-434); RBC 5.49 M/mm3 (4.00-5.60); RDW 13.5 % (11.9-15.9)
[2017-12-07 10:23] LABS: MEAN PLT VOLUME 8.4 fl (7.5-11.1)
[2017-12-07 12:46] LABS: PLATELET ESTIMATE ADEQUATE
[2017-12-07] MEDS: AZITHROMYCIN 250 MG TABLET PO SCH (14:06)
[2017-12-07] MEDS: amLODIPine BESYLATE 2.5 MG TABLET (FP) PO SCH (14:07)
[2017-12-07] MEDS ORDERED: amLODIPine BESYLATE 5 MG TABLET (FP) PO ONE (16:48)
--- NOTE | 2017-12-07 18:17 | PN ---
Progress Note, Physician History of Present Illness: Still with dyspnea and hypoxia with ambulation. Chest tightness improved. - Current Medication List Current Medications: Active Medications Albuterol Sulfate (Ventolin 0.083% Nebulizer Soln -) 1 amp NEB Q4H PRN PRN Reason: SHORT OF BREATH/WHEEZING Last Admin: 12/07/17 14:07 Dose: 1 amp Amlodipine Besylate (Norvasc -) 2.5 mg PO DAILY [facility] Last Admin: 12/07/17 14:07 Dose: 2.5 mg Arformoterol Tartrate (Brovana (Restricted To Pulmonology/Resp) -) 1 amp NEB RBID [facility] Last Admin: 12/07/17 09:20 Dose: 1 amp Aspirin (Asa -) 81 mg PO DAILY [facility] Last Admin: 12/07/17 09:21 Dose: 81 mg Azithromycin (Zithromax -) 250 mg PO DAILY [facility] Last Admin: 12/07/17 14:06 Dose: 250 mg Cefpodoxime Proxetil (Vantin -) 200 mg PO BID [facility] Last Admin: 12/07/17 09:22 Dose: 200 mg Enoxaparin Sodium (Lovenox -) 40 mg SQ DAILY [facility] Guaifenesin (Mucinex -) 600 mg PO BID [facility] Last Admin: 12/07/17 09:21 Dose: 600 mg Lorazepam (Ativan -) 0.5 mg PO BID PRN PRN Reason: ANXIETY Losartan Potassium (Cozaar -) 50 mg PO DAILY [facility] Last Admin: 12/07/17 09:21 Dose: 50 mg Methylprednisolone Sodium Succinate (Solu-Medrol -) 60 mg IVPUSH Q6H-IV [facility] Last Admin: 12/07/17 14:07 Dose: 60 mg Nitroglycerin (Nitrostat -) 0.4 mg SL Q5M PRN PRN Reason: FOR CHEST PAIN Last Admin: 12/04/17 03:10 Dose: 0.4 mg Non-Formulary Medication (Umeclidinium Brm/Vilanterol Tr [Anoro Ellipta 62.5-25 Mcg Inh]) 1 each IH DAILY [facility] Last Admin: 12/07/17 09:22 Dose: 1 each Non-Formulary Medication (Silodosin [Rapaflo]) 8 mg PO HS [facility] Last Admin: 12/06/17 21:40 Dose: 8 mg Pantoprazole Sodium (Protonix -) 40 mg PO DAILY [facility] Last Admin: 12/07/17 09:21 Dose: 40 mg Polyethylene Glycol (Miralax (For Daily Use) -) 17 gm PO DAILY [facility] Last Admin: 12/07/17 09:22 Dose: 17 gm Roflumilast (Daliresp -) 500 mcg PO DAILY [facility] Last Admin: 12/07/17 09:21 Dose: 500 mcg Rosuvastatin Calcium (Crestor -) 20 mg PO HS [facility] Last Admin: 12/06/17 21:40 Dose: 20 mg Tiotropium [place] (Spiriva -) 1 puff IH DAILY [facility] Last Admin: 12/07/17 09:21 Dose: 1 puff - Objective Vital Signs: Vital Signs Temperature 97.6 F 12/07/17 16:23 Pulse Rate 96 H 12/07/17 16:23 Respiratory Rate 20 12/07/17 16:23 Blood Pressure 176/103 12/07/17 16:23 O2 Sat by Pulse Oximetry (%) 100 12/07/17 16:23 Constitutional: Yes: No Distress, Calm, Thin Neck: Yes: Supple Cardiovascular: Yes: Regular Rate and Rhythm Respiratory: Yes: Regular, Diminished, On Nasal O2 Gastrointestinal: Yes: Normal Bowel Sounds, Soft Edema: No Labs: CBC, BMP 12/07/17 06:50 12/07/17 06:50 INR, PTT INR 0.89 (0.82-1.09) 12/03/17 04:25 - ....Imaging Cat Scan: Report Reviewed (Chest CTA-No PE, PNA, congestion) EKG: Report Reviewed (Tele: Sinus tachycardia) Problem List - Problems (1) Labile essential hypertension Code(s): I10 - ESSENTIAL (PRIMARY) HYPERTENSION (2) BPH (benign prostatic hyperplasia) Code(s): N40.0 - BENIGN PROSTATIC HYPERPLASIA WITHOUT LOWER URINRY TRACT SYMP Qualifiers: Lower urinary tract symptom detail: unspecified (3) COPD with acute exacerbation Code(s): J44.1 - CHRONIC OBSTRUCTIVE PULMONARY DISEASE W (ACUTE) EXACERBATION (4) Chest pain Code(s): R07.9 - CHEST PAIN, UNSPECIFIED Qualifiers: Chest pain type: unspecified Qualified Code(s): R07.9 - Chest pain, unspecified (5) Orthostatic hypotension Code(s): I95.1 - ORTHOSTATIC HYPOTENSION (6) Acute on chronic respiratory failure with hypoxia Code(s): J96.21 - ACUTE AND CHRONIC RESPIRATORY FAILURE WITH HYPOXIA Assessment/Plan 12/03/2017 Echo: Normal LV size and fxn, abnl LV compliance, mild AR, tr MR 07/04/17 ETT Myoview: No ischemia, LVEF>70% 06/27/17 Echo: Normal biventricular size and fxn. mild TR 1. Acute exacerbation of COPD 2. Acute on chronic hypoxic failure 3. Right hilar pulmonary nodule 4. Atypical chest tightness referable to above 5. Labile hypertension with orthostasis 6. Hyperlipidemia 7. BPH P: 1. IV steroids with GI protection, BD, O2 to maintain saO2>90%, Daliresp, empiric abx course 2. Continue ASA 81 qd, Crestor 20 qhs and increased losartan 50 qd as tolerated , amlodipine 2.5 qd added 3. 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 DVT prophylaxis
[2017-12-08] MEDS: guaiFENesin 600 MG TABLET.ER (FP) PO SCH ×3 (00:37→21:57)
[2017-12-08] MEDS: ROSUVASTATIN CA 20 MG TABLET (FP) PO SCH ×2 (00:37→21:56)
[2017-12-08] MEDS ORDERED: PT OWN MED DRAWER 7, Y5N ONE ×3 (00:38→21:53)
[2017-12-08] MEDS: PATIENT'S OWN MEDICATION (NON-FORMULARY) (Silodosin [Rapaflo] 8 MG) PO SCH ×2 (00:39→21:57)
[2017-12-08] MEDS: CEFPODOXIME PROXETIL 200 MG TABLET [NF] PO SCH (00:39)
[2017-12-08] MEDS: methylPREDNISolone NA SUCC 40 MG/1 ML VIAL IVPUSH SCH ×4 (03:00→21:56)
[2017-12-08] MEDS: ALBUTEROL SO4 0.083% IH SOL 2.5 MG/3 ML VIAL.NEB. NEB PRN (05:56)
--- NOTE | 2017-12-08 07:19 | PN ---
Progress Note, Physician History of Present Illness: pulmonary alert,some improvement,+cough,slightly less dyspneic - Current Medication List Current Medications: Active Medications Albuterol Sulfate (Ventolin 0.083% Nebulizer Soln -) 1 amp NEB Q4H PRN PRN Reason: SHORT OF BREATH/WHEEZING Last Admin: 12/08/17 05:56 Dose: 1 amp Amlodipine Besylate (Norvasc -) 2.5 mg PO DAILY [facility] Last Admin: 12/07/17 14:07 Dose: 2.5 mg Arformoterol Tartrate (Brovana (Restricted To Pulmonology/Resp) -) 1 amp NEB RBID [facility] Last Admin: 12/07/17 20:57 Dose: 1 amp Aspirin (Asa -) 81 mg PO DAILY [facility] Last Admin: 12/07/17 09:21 Dose: 81 mg Azithromycin (Zithromax -) 250 mg PO DAILY [facility] Last Admin: 12/07/17 14:06 Dose: 250 mg Cefpodoxime Proxetil (Vantin -) 200 mg PO BID [facility] Last Admin: 12/08/17 00:39 Dose: 200 mg Enoxaparin Sodium (Lovenox -) 40 mg SQ DAILY [facility] Guaifenesin (Mucinex -) 600 mg PO BID [facility] Last Admin: 12/08/17 00:37 Dose: 600 mg Lorazepam (Ativan -) 0.5 mg PO BID PRN PRN Reason: ANXIETY Losartan Potassium (Cozaar -) 50 mg PO DAILY [facility] Last Admin: 12/07/17 09:21 Dose: 50 mg Methylprednisolone Sodium Succinate (Solu-Medrol -) 60 mg IVPUSH Q6H-IV [facility] Last Admin: 12/08/17 03:00 Dose: 60 mg Nitroglycerin (Nitrostat -) 0.4 mg SL Q5M PRN PRN Reason: FOR CHEST PAIN Last Admin: 12/04/17 03:10 Dose: 0.4 mg Non-Formulary Medication (Umeclidinium Brm/Vilanterol Tr [Anoro Ellipta 62.5-25 Mcg Inh]) 1 each IH DAILY [facility] Last Admin: 12/07/17 09:22 Dose: 1 each Non-Formulary Medication (Silodosin [Rapaflo]) 8 mg PO HS [facility] Last Admin: 12/08/17 00:39 Dose: 8 mg Pantoprazole Sodium (Protonix -) 40 mg PO DAILY [facility] Last Admin: 12/07/17 09:21 Dose: 40 mg Polyethylene Glycol (Miralax (For Daily Use) -) 17 gm PO DAILY [facility] Last Admin: 12/07/17 09:22 Dose: 17 gm Roflumilast (Daliresp -) 500 mcg PO DAILY [facility] Last Admin: 12/07/17 09:21 Dose: 500 mcg Rosuvastatin Calcium (Crestor -) 20 mg PO HS [facility] Last Admin: 12/08/17 00:37 Dose: 20 mg Tiotropium [place] (Spiriva -) 1 puff IH DAILY [facility] Last Admin: 12/07/17 09:21 Dose: 1 puff - Objective Vital Signs: Vital Signs Temperature 98.0 F 12/08/17 04:00 Pulse Rate 78 12/08/17 04:00 Respiratory Rate 20 12/08/17 04:00 Blood Pressure 155/93 12/08/17 04:00 O2 Sat by Pulse Oximetry (%) 100 12/08/17 05:59 Constitutional: Yes: Well Nourished, Calm Eyes: Yes: WNL HENT: Yes: WNL Neck: Yes: WNL Cardiovascular: Yes: Regular Rate and Rhythm, S1, S2 Respiratory: Yes: Diminished, Wheezes (few wheezes anteriorly) Gastrointestinal: Yes: Normal Bowel Sounds, Soft Extremities: Yes: WNL Edema: No Labs: CBC, BMP 12/07/17 06:50 12/07/17 06:50 INR, PTT INR 0.89 (0.82-1.09) 12/03/17 04:25 - ....Imaging Cat Scan: Report Reviewed, Image Reviewed (-PE,-INFILTRARES) Problem List - Problems (1) BPH (benign prostatic hyperplasia) Code(s): N40.0 - BENIGN PROSTATIC HYPERPLASIA WITHOUT LOWER URINRY TRACT SYMP Qualifiers: Lower urinary tract symptom detail: unspecified (2) COPD with acute exacerbation Code(s): J44.1 - CHRONIC OBSTRUCTIVE PULMONARY DISEASE W (ACUTE) EXACERBATION (3) Chest pain Code(s): R07.9 - CHEST PAIN, UNSPECIFIED Qualifiers: Chest pain type: unspecified Qualified Code(s): R07.9 - Chest pain, unspecified (4) Orthostatic hypotension Code(s): I95.1 - ORTHOSTATIC HYPOTENSION Assessment/Plan IMP COPD EXACERBATION LIKELY URI MILD MEDIASTINAL ADENOPATHY ? REACTIVE R HILAR PULMONARY NODULE VS NODE HTN H/O ORTHOSTATIC HYPTENSION BPH PLAN CONTINUE IV STEROIDS SAME DOSE O2 INHALED BRONCHODILATORS ZITHROMAX 250 DAILY O2 SAT AT REST AND POST EXERCISE ON RA DALIRESP DR BASS Problem List - Problems (1) BPH (benign prostatic hyperplasia) Code(s): N40.0 - BENIGN PROSTATIC HYPERPLASIA WITHOUT LOWER URINRY TRACT SYMP Qualifiers: Lower urinary tract symptom detail: unspecified (2) COPD with acute exacerbation Code(s): J44.1 - CHRONIC OBSTRUCTIVE PULMONARY DISEASE W (ACUTE) EXACERBATION (3) Chest pain Code(s): R07.9 - CHEST PAIN, UNSPECIFIED Qualifiers: Chest pain type: unspecified Qualified Code(s): R07.9 - Chest pain, unspecified (4) Orthostatic hypotension Code(s): I95.1 - ORTHOSTATIC HYPOTENSION
--- NOTE | 2017-12-08 08:13 | PN ---
Physical Exam: SUBJECTIVE: Patient seen and examined, patient reports feeling ongoing dyspnea upon exertion. OBJECTIVE:Patient is a 72 year old male with a past medical history of COPD, hypertension, orthostatic hypotension, and BPH. patient was admitted from the emergency department for copd excerbation. Vital Signs Period Temp Pulse Resp BP Sys/Schafer Pulse Ox Last 24 Hr 97.6 F-98.0 F 78-104 18-20 152-176/93-104 98-100 GENERAL: The patient is awake, alert, and fully oriented, in no acute distress. HEAD: Normal with no signs of trauma. EYES: PERRL, extraocular movements intact, sclera anicteric, conjunctiva clear. No ptosis. ENT: Ears normal, nares patent, oropharynx clear without exudates, moist mucous membranes. NECK: Trachea midline, full range of motion, supple. LUNGS: Breath sounds equal, diminished throughout, no wheezes, no crackles, no accessory muscle use. HEART: Regular rate and rhythm, S1, S2 without murmur, rub or gallop. ABDOMEN: Soft, nontender, nondistended, normoactive bowel sounds, no guarding, no rebound, no hepatosplenomegaly, no masses. EXTREMITIES: 2+ pulses, warm, well-perfused, no edema. NEUROLOGICAL: Cranial nerves II through XII grossly intact. Normal speech, gait not observed. PSYCH: Normal mood, normal affect. SKIN: Warm, dry, normal turgor, no rashes or lesions noted Laboratory Results - last 24 hr 12/07/17 12/07/17 06:50 06:50 WBC 18.7 H RBC 5.49 Hgb 16.2 Hct 48.6 MCV 88.4 MCH 29.4 MCHC 33.3 RDW 13.5 Plt Count 153 D MPV 8.4 Neutrophils % No Result Required. Neutrophils % (Manual) 87.0 H Band Neutrophils % 2.0 Lymphocytes % No Result Required. Lymphocytes % (Manual) 5.0 L D Monocytes % (Manual) 6 Platelet Estimate Adequate Platelet Comment Slt plt clumping Sodium 135 L Potassium 5.3 H Chloride 99 Carbon Dioxide 27 Anion Gap 9 BUN 23 H Creatinine 1.2 Random Glucose 103 Calcium 9.3 Active Medications Generic Name Dose Route Start Last Admin Trade Name Freq PRN Reason Stop Dose Admin Albuterol Sulfate 1 amp 12/05/17 14:20 12/08/17 05:56 Ventolin 0.083% Nebulizer Soln - NEB 1 amp Q4H PRN Administration SHORT OF BREATH/WHEEZING Amlodipine Besylate 2.5 mg 12/07/17 13:15 12/07/17 14:07 Norvasc - PO 2.5 mg DAILY [facility] Administration Arformoterol Tartrate 1 amp 12/04/17 10:00 12/07/17 20:57 Brovana (Restricted To Pulmonology/Resp) - NEB 1 amp RBID ELVIRA Administration Aspirin 81 mg 12/04/17 10:00 12/07/17 09:21 Asa - PO 81 mg DAILY [facility] Administration Azithromycin 250 mg 12/07/17 12:30 12/07/17 14:06 Zithromax - PO 250 mg DAILY [facility] Administration Cefpodoxime Proxetil 200 mg 12/03/17 22:00 12/08/17 00:39 Vantin - PO 200 mg BID [facility]IRA Administration Enoxaparin Sodium 40 mg 12/08/17 10:00 Lovenox - SQ DAILY [facility] Guaifenesin 600 mg 12/04/17 11:30 12/08/17 00:37 Mucinex - PO 600 mg BID [facility] Administration Lorazepam 0.5 mg 12/07/17 08:54 Ativan - PO BID PRN ANXIETY Losartan Potassium 50 mg 12/07/17 10:00 12/07/17 09:21 Cozaar - PO 50 mg DAILY [facility] Administration Methylprednisolone Sodium Succinate 60 mg 12/07/17 12:21 12/08/17 03:00 Solu-Medrol - IVPUSH 60 mg Q6H-IV [facility] Administration Nitroglycerin 0.4 mg 12/04/17 03:13 12/04/17 03:10 Nitrostat - SL 0.4 mg Q5M PRN Administration FOR CHEST PAIN Non-Formulary Medication 1 each 12/04/17 10:00 12/07/17 09:22 Umeclidinium Brm/Vilanterol Tr [Anoro Ellipta 62.5-25 Mcg Inh] IH 1 each DAILY [facility] Administration Non-Formulary Medication 8 mg 12/04/17 22:00 12/08/17 00:39 Silodosin [Rapaflo] PO 8 mg HS [facility] Administration Pantoprazole Sodium 40 mg 12/03/17 10:00 02/11/18 09:21 Protonix - PO 40 mg DAILY [facility] Administration Polyethylene Glycol 17 gm 12/06/17 10:00 12/07/17 09:22 Miralax (For Daily Use) - PO 17 gm DAILY [facility] Administration Roflumilast 500 mcg 12/06/17 10:00 12/07/17 09:21 Daliresp - PO 500 mcg DAILY [facility] Administration Rosuvastatin Calcium 20 mg 12/04/17 22:00 12/08/17 00:37 Crestor - PO 20 mg HS [facility] Administration Tiotropium [place] 1 puff 12/04/17 10:00 12/07/17 09:21 Spiriva - IH 1 puff DAILY [facility] Administration Microbiology 12/03/17 06:40 Nasopharyngeal Swab Influenza Types A,B Antigen (ADRIAN) - Final , negative 12/03/17 06:40 Nasopharyngeal Swab - Final, negative Imaging: ct of chest w/contrast: no evidence of PE, PNA, or pulmonary edema, advanced centrilobar emphysematous changes, 1.4 x 1.2cm nodular soft tissue in the right hilar region, ? neoplasm. CTA 12/07/2017: No evidence of PE CxR: No acute pathology echo ef 70%, grade I diastolic dysfunction ASSESSMENT/PLAN: 1) pulmonary COPD exacerbation, acute on chronic - still has PRYOR, continue solumedrol 60mg IV q6h, brovana, dailresp, spiriva - leukocytosis noted secondary to solumedrol, pt is a afebrile, continue zithromax daily - keep spo2 above 92% with supplemental O2 as needed - peak flow - pulmonary consulted and followed 2) cardiology chest pain resolved - troponin x 3 wnl - no events on telemetry hypertension - continue losartan and norvasc, strict b/p monitoring -cardiology consulted and following F.E N vegeterian diet, replete lytes Hyponatremia - improving Prophy: Protonix, lovenox, SCDS, ambulation Problem List - Problems (1) COPD with acute exacerbation Code(s): J44.1 - CHRONIC OBSTRUCTIVE PULMONARY DISEASE W (ACUTE) EXACERBATION (2) Orthostatic hypotension Code(s): I95.1 - ORTHOSTATIC HYPOTENSION (3) Chest pain Code(s): R07.9 - CHEST PAIN, UNSPECIFIED Qualifiers: Chest pain type: unspecified Qualified Code(s): R07.9 - Chest pain, unspecified (4) BPH (benign prostatic hyperplasia) Code(s): N40.0 - BENIGN PROSTATIC HYPERPLASIA WITHOUT LOWER URINRY TRACT SYMP Qualifiers: Lower urinary tract symptom detail: unspecified Visit type - Emergency Visit Emergency Visit: Yes ED Registration Date: 12/05/17 Care time: The patient presented to the Emergency Department on the above date and was hospitalized for further evaluation of their emergent condition. - New Patient This patient is new to me today: No - Critical Care Critical Care patient: No - Discharge Referral Referred to [facility] Med P.C.: No
[2017-12-08] MEDS: ARFORMOTEROL TARTRATE 15 MCG/2 ML VIAL NEB SCH ×2 (08:22→20:46)
[2017-12-08 09:01] LABS: MCH 29.1 pg (25.7-33.7); RDW 13.3 % (11.9-15.9); WHITE BLOOD COUNT 19.8 K/mm3 (4.0-10.8)
[2017-12-08 09:08] LABS: HEMATOCRIT 47.5 % (35.4-49); MEAN CELL VOLUME 86.3 fl (80-96)
[2017-12-08 09:09] LABS: MCHC 33.7 g/dl (32.0-35.9)
[2017-12-08] MEDS: POLYETHYLENE GLYCOL 3350 119 GM BTL PO SCH (09:40)
[2017-12-08] MEDS: ASPIRIN 81 MG CHEWABLE TABLETS PO SCH (09:41)
[2017-12-08] MEDS: LOSARTAN POTASSIUM 50 MG TABLET (FP) PO SCH (09:41)
[2017-12-08] MEDS: AZITHROMYCIN 250 MG TABLET PO SCH (09:42)
[2017-12-08] MEDS: ROFLUMILAST 500 MCG TABLET PO SCH (09:42)
[2017-12-08] MEDS: ENOXAPARIN NA (PORCINE) 40 MG/0.4 ML DISP.SYRIN SQ SCH (09:42)
[2017-12-08] MEDS: PATIENT'S OWN MEDICATION (NON-FORMULARY) (Umeclidinium Brm/Vilanterol Tr [Anoro Ellipta 62 IH SCH (09:44)
[2017-12-08 09:45] LABS: ALBUMIN 3.6 g/dl (3.5-5.0); ALK PHOS 52 U/L (32-92); ANION GAP 9 (8-16); BILIRUBIN,TOTAL 0.8 mg/dl (0.2-1.0); BLOOD UREA NITROGEN 18 mg/dl (7-18); CALCIUM 9.3 mg/dl (8.4-10.2); CHLORIDE 98 mmol/L (98-107); CO2 26 mmol/L (22-28); CREATININE 1.1 mg/dl (0.6-1.3); GLUCOSE,RANDOM 117 mg/dl (74-106); SGOT/AST 79 U/L (10-42); SGPT/ALT 56 U/L (10-40); SODIUM 133 mmol/L (136-145); TOT PROT 6.4 g/dl (6.4-8.3)
[2017-12-08] MEDS: amLODIPine BESYLATE 2.5 MG TABLET (FP) PO SCH (10:00)
[2017-12-08] MEDS: PANTOPRAZOLE 40 MG TABLET (FP) PO SCH (10:00)
[2017-12-08] MEDS: TIOTROPIUM BROMIDE 18 MCG/INH (DEVICE W/ 5 CAPSULES) IH SCH (10:00)
[2017-12-08 11:04] LABS: MAGNESIUM 2.4 mg/dL (1.8-2.4)
[2017-12-09] MEDS: methylPREDNISolone NA SUCC 40 MG/1 ML VIAL IVPUSH SCH ×2 (03:28→10:14)
[2017-12-09] MEDS: ALBUTEROL SO4 0.083% IH SOL 2.5 MG/3 ML VIAL.NEB. NEB PRN ×2 (04:16→10:17)
--- NOTE | 2017-12-09 07:20 | PN ---
Progress Note, Physician History of Present Illness: pulmonary alert,some improvement but still very dyspneic with any exertion.pt c/o gi upset loose stools,cramps - Current Medication List Current Medications: Active Medications Albuterol Sulfate (Ventolin 0.083% Nebulizer Soln -) 1 amp NEB Q4H PRN PRN Reason: SHORT OF BREATH/WHEEZING Last Admin: 12/09/17 04:16 Dose: 1 amp Amlodipine Besylate (Norvasc -) 2.5 mg PO DAILY [facility] Last Admin: 12/08/17 10:00 Dose: 2.5 mg Arformoterol Tartrate (Brovana (Restricted To Pulmonology/Resp) -) 1 amp NEB RBID [facility] Last Admin: 12/08/17 20:46 Dose: 1 amp Aspirin (Asa -) 81 mg PO DAILY [facility] Last Admin: 12/08/17 09:41 Dose: 81 mg Azithromycin (Zithromax -) 250 mg PO DAILY [facility] Last Admin: 12/08/17 09:42 Dose: 250 mg Enoxaparin Sodium (Lovenox -) 40 mg SQ DAILY [facility] Last Admin: 12/08/17 09:42 Dose: 40 mg Guaifenesin (Mucinex -) 600 mg PO BID [facility] Last Admin: 12/08/17 21:57 Dose: 600 mg Lorazepam (Ativan -) 0.5 mg PO BID PRN PRN Reason: ANXIETY Losartan Potassium (Cozaar -) 50 mg PO DAILY [facility] Last Admin: 12/08/17 09:41 Dose: 50 mg Methylprednisolone Sodium Succinate (Solu-Medrol -) 60 mg IVPUSH Q6H-IV [facility] Last Admin: 12/09/17 03:28 Dose: 60 mg Nitroglycerin (Nitrostat -) 0.4 mg SL Q5M PRN PRN Reason: FOR CHEST PAIN Last Admin: 12/04/17 03:10 Dose: 0.4 mg Non-Formulary Medication (Silodosin [Rapaflo]) 8 mg PO HS [facility] Last Admin: 12/08/17 21:57 Dose: 8 mg Pantoprazole Sodium (Protonix -) 40 mg PO DAILY [facility] Last Admin: 12/08/17 10:00 Dose: 40 mg Polyethylene Glycol (Miralax (For Daily Use) -) 17 gm PO DAILY [facility] Last Admin: 12/08/17 09:40 Dose: 17 gm Roflumilast (Daliresp -) 500 mcg PO DAILY [facility] Last Admin: 12/08/17 09:42 Dose: 500 mcg Rosuvastatin Calcium (Crestor -) 20 mg PO HS [facility] Last Admin: 12/08/17 21:56 Dose: 20 mg Tiotropium [place] (Spiriva -) 1 puff IH DAILY [facility] Last Admin: 12/08/17 10:00 Dose: 1 puff - Objective Vital Signs: Vital Signs Temperature 98.5 F 12/09/17 06:09 Pulse Rate 96 H 12/09/17 06:09 Respiratory Rate 18 12/09/17 06:09 Blood Pressure 149/92 12/09/17 06:09 O2 Sat by Pulse Oximetry (%) 97 12/09/17 06:09 Constitutional: Yes: Well Nourished, Calm Eyes: Yes: WNL HENT: Yes: WNL Neck: Yes: WNL Cardiovascular: Yes: Regular Rate and Rhythm, S1, S2 Respiratory: Yes: Diminished Gastrointestinal: Yes: Normal Bowel Sounds, Soft Extremities: Yes: WNL Labs: CBC, BMP Problem List - Problems (1) BPH (benign prostatic hyperplasia) Code(s): N40.0 - BENIGN PROSTATIC HYPERPLASIA WITHOUT LOWER URINRY TRACT SYMP Qualifiers: Lower urinary tract symptom detail: unspecified (2) COPD with acute exacerbation Code(s): J44.1 - CHRONIC OBSTRUCTIVE PULMONARY DISEASE W (ACUTE) EXACERBATION (3) Chest pain Code(s): R07.9 - CHEST PAIN, UNSPECIFIED Qualifiers: Chest pain type: unspecified Qualified Code(s): R07.9 - Chest pain, unspecified (4) Orthostatic hypotension Code(s): I95.1 - ORTHOSTATIC HYPOTENSION Assessment/Plan IMP COPD EXACERBATION LIKELY URI MILD MEDIASTINAL ADENOPATHY ? REACTIVE R HILAR PULMONARY NODULE VS NODE HTN H/O ORTHOSTATIC HYPTENSION BPH PLAN TAPER STEROIDS O2 INHALED BRONCHODILATORS ZITHROMAX 250 DAILY O2 SAT AT REST AND POST EXERCISE ON RA D/C SHARON BASS Problem List - Problems (1) BPH (benign prostatic hyperplasia) Code(s): N40.0 - BENIGN PROSTATIC HYPERPLASIA WITHOUT LOWER URINRY TRACT SYMP Qualifiers: Lower urinary tract symptom detail: unspecified (2) COPD with acute exacerbation Code(s): J44.1 - CHRONIC OBSTRUCTIVE PULMONARY DISEASE W (ACUTE) EXACERBATION (3) Chest pain Code(s): R07.9 - CHEST PAIN, UNSPECIFIED Qualifiers: Chest pain type: unspecified Qualified Code(s): R07.9 - Chest pain, unspecified (4) Orthostatic hypotension Code(s): I95.1 - ORTHOSTATIC HYPOTENSION
[2017-12-09] MEDS: ARFORMOTEROL TARTRATE 15 MCG/2 ML VIAL NEB SCH ×2 (08:45→21:51)
[2017-12-09] MEDS: POLYETHYLENE GLYCOL 3350 119 GM BTL PO SCH (10:00)
[2017-12-09] MEDS: TIOTROPIUM BROMIDE 18 MCG/INH (DEVICE W/ 5 CAPSULES) IH SCH (10:00)
[2017-12-09] MEDS ORDERED: PT OWN MED DRAWER 7, Y5N ONE ×2 (10:11→21:19)
[2017-12-09] MEDS: AZITHROMYCIN 250 MG TABLET PO SCH (10:15)
[2017-12-09] MEDS: ASPIRIN 81 MG CHEWABLE TABLETS PO SCH (10:15)
[2017-12-09] MEDS: guaiFENesin 600 MG TABLET.ER (FP) PO SCH ×2 (10:15→21:51)
[2017-12-09] MEDS: ROFLUMILAST 500 MCG TABLET PO SCH (10:16)
[2017-12-09] MEDS: amLODIPine BESYLATE 2.5 MG TABLET (FP) PO SCH (10:16)
[2017-12-09] MEDS: LOSARTAN POTASSIUM 50 MG TABLET (FP) PO SCH (10:16)
[2017-12-09] MEDS: PANTOPRAZOLE 40 MG TABLET (FP) PO SCH (10:16)
[2017-12-09] MEDS: ENOXAPARIN NA (PORCINE) 40 MG/0.4 ML DISP.SYRIN SQ SCH (10:18)
[2017-12-09 11:56] LABS: BASO % 0.3 % (0-2.0); HEMATOCRIT 49.5 % (35.4-49); HEMOGLOBIN 16.1 GM/dL (11.7-16.9); LYMPH % 5.6 % (8-40); MCH 28.3 pg (25.7-33.7); MCHC 32.5 g/dl (32.0-35.9); MEAN CELL VOLUME 87.1 fl (80-96); MEAN PLT VOLUME 8.7 fl (7.5-11.1); MONO % 8.3 % (3.8-10.2); NEUT % 85.8 % (42.8-82.8); RBC 5.68 M/mm3 (4.00-5.60); RDW 13.8 % (11.9-15.9)
--- NOTE | 2017-12-09 14:42 | PN ---
Physical Exam: SUBJECTIVE: Patient seen and examined, reports feeling slightly improved, less wheezing and coughing. OBJECTIVE:Patient is a 72 year old male with a past medical history of COPD, hypertension, orthostatic hypotension, and BPH. patient was admitted from the emergency department for copd excerbation. Vital Signs Period Temp Pulse Resp BP Sys/Schafer Pulse Ox Last 24 Hr 97.3 F-98.5 F 82-103 18-20 134-149/88-93 94-100 GENERAL: The patient is awake, alert, and fully oriented, in no acute distress. HEAD: Normal with no signs of trauma. EYES: PERRL, extraocular movements intact, sclera anicteric, conjunctiva clear. No ptosis. ENT: Ears normal, nares patent, oropharynx clear without exudates, moist mucous membranes. NECK: Trachea midline, full range of motion, supple. LUNGS: Breath sounds equal, diminished throughout, no wheezes, no crackles, no accessory muscle use. HEART: Regular rate and rhythm, S1, S2 without murmur, rub or gallop. ABDOMEN: Soft, nontender, nondistended, normoactive bowel sounds, no guarding, no rebound, no hepatosplenomegaly, no masses. EXTREMITIES: 2+ pulses, warm, well-perfused, no edema. NEUROLOGICAL: Cranial nerves II through XII grossly intact. Normal speech, gait not observed. PSYCH: Normal mood, normal affect. SKIN: Warm, dry, normal turgor, no rashes or lesions noted Laboratory Results - last 24 hr 12/09/17 09:00 WBC 16.0 H D RBC 5.68 H Hgb 16.1 Hct 49.5 H MCV 87.1 MCH 28.3 MCHC 32.5 RDW 13.8 Plt Count No Result Required. MPV 8.7 Neutrophils % 85.8 H Lymphocytes % 5.6 L Monocytes % 8.3 Eosinophils % 0.0 Basophils % 0.3 Platelet Comment Mod plt clumping CMP Sodium 133 mmol/L (136-145) L 12/08/17 07:30 Potassium 4.0 mmol/L (3.5-5.1) D 12/08/17 07:30 Chloride 98 mmol/L (98-107) 12/08/17 07:30 Carbon Dioxide 26 mmol/L (22-28) 12/08/17 07:30 Anion Gap 9 (8-16) 12/08/17 07:30 BUN 18 mg/dl (7-18) D 12/08/17 07:30 Creatinine 1.1 mg/dl (0.6-1.3) 12/08/17 07:30 Creat Clearance w eGFR > 60 (>60) 12/08/17 07:30 Random Glucose 117 mg/dl (74-106) H 12/08/17 07:30 Calcium 9.3 mg/dl (8.4-10.2) 12/08/17 07:30 Phosphorus 4.5 mg/dl (2.5-4.6) 12/04/17 07:45 Magnesium 2.4 mg/dL (1.8-2.4) 12/08/17 07:30 Total Bilirubin 0.8 mg/dl (0.2-1.0) 12/08/17 07:30 AST 79 U/L (10-42) H D 12/08/17 07:30 ALT 56 U/L (10-40) H D 12/08/17 07:30 Alkaline Phosphatase 52 U/L (32-92) 12/08/17 07:30 Creatine Kinase 174 IU/L (39-308) 12/04/17 03:30 Creatine Kinase Index 6.5 % (0.0-5.0) H* 12/04/17 03:30 CK-MB (CK-2) 11.455 ng/mL (0.5-3.6) H 12/04/17 03:30 Troponin I < 0.02 ng/ml (0.00-0.05) 12/04/17 03:30 Total Protein 6.4 g/dl (6.4-8.3) 12/08/17 07:30 Albumin 3.6 g/dl (3.5-5.0) 12/08/17 07:30 Triglycerides 115 mg/dl (35-160) 12/04/17 07:45 Cholesterol 211 mg/dl 12/04/17 07:45 Total LDL Cholesterol 101 mg/dl 12/04/17 07:45 HDL Cholesterol 87 mg/dl (29-89) 12/04/17 07:45 Active Medications Generic Name Dose Route Start Last Admin Trade Name Freq PRN Reason Stop Dose Admin Albuterol Sulfate 1 amp 12/05/17 14:20 12/09/17 10:17 Ventolin 0.083% Nebulizer Soln - NEB 1 amp Q4H PRN Administration SHORT OF BREATH/WHEEZING Amlodipine Besylate 2.5 mg 12/07/17 13:15 12/09/17 10:16 Norvasc - PO 2.5 mg DAILY EL[facility]IRA Administration Arformoterol Tartrate 1 amp 12/04/17 10:00 12/09/17 08:45 Brovana (Restricted To Pulmonology/Resp) - NEB 1 amp RBID EL[facility]A Administration Aspirin 81 mg 12/04/17 10:00 12/09/17 10:15 Asa - PO 81 mg DAILY EL[facility]A Administration Azithromycin 250 mg 12/07/17 12:30 12/09/17 10:15 Zithromax - PO 250 mg DAILY [facility] Administration Enoxaparin Sodium 40 mg 12/08/17 10:00 12/09/17 10:18 Lovenox - SQ 40 mg DAILY [facility] Administration Guaifenesin 600 mg 12/04/17 11:30 12/09/17 10:15 Mucinex - PO 600 mg BID EL[facility] Administration Lorazepam 0.5 mg 12/07/17 08:54 Ativan - PO BID PRN ANXIETY Losartan Potassium 50 mg 12/07/17 10:00 12/09/17 10:16 Cozaar - PO 50 mg DAILY [facility] Administration Methylprednisolone Sodium Succinate 60 mg 12/09/17 18:00 Solu-Medrol - IVPUSH Q8H-IV [facility] Nitroglycerin 0.4 mg 12/04/17 03:13 12/04/17 03:10 Nitrostat - SL 0.4 mg Q5M PRN Administration FOR CHEST PAIN Non-Formulary Medication 8 mg 12/04/17 22:00 12/08/17 21:57 Silodosin [Rapaflo] PO 8 mg HS [facility]A Administration Pantoprazole Sodium 40 mg 12/03/17 10:00 12/09/17 10:16 Protonix - PO 40 mg DAILY [facility] Administration Polyethylene Glycol 17 gm 12/06/17 10:00 12/09/17 10:00 Miralax (For Daily Use) - PO 17 gm DAILY [facility] Administration Rosuvastatin Calcium 20 mg 12/04/17 22:00 12/08/17 21:56 Crestor - PO 20 mg HS EL[facility]A Administration Tiotropium [place] 1 puff 12/04/17 10:00 02/13/18 10:00 Spiriva - IH 1 puff DAILY [facility] Administration Microbiology 12/03/17 06:40 Nasopharyngeal Swab Influenza Types A,B Antigen (ADRIAN) - Final , negative 12/03/17 06:40 Nasopharyngeal Swab - Final, negative Imaging: ct of chest w/contrast: no evidence of PE, PNA, or pulmonary edema, advanced centrilobar emphysematous changes, 1.4 x 1.2cm nodular soft tissue in the right hilar region, ? neoplasm. CTA 12/07/2017: No evidence of PE CxR: No acute pathology echo ef 70%, grade I diastolic dysfunction ASSESSMENT/PLAN: 1) pulmonary COPD exacerbation, acute on chronic - PRYOR improving decrease solumedrol 60mg IV tid, brovana, dailresp, spiriva - leukocytosis noted secondary to solumedrol, pt is a afebrile, continue zithromax daily - keep spo2 above 92% with supplemental O2 as needed - peak flow - pulmonary consulted and followed 2) cardiology chest pain resolved - troponin x 3 wnl - no events on telemetry--may discontinue hypertension - continue losartan and norvasc, strict b/p monitoring -cardiology consulted and following F.E N vegeterian diet, replete lytes Hyponatremia - improving Prophy: Protonix, lovenox, SCDS, ambulation Problem List - Problems (1) COPD with acute exacerbation Code(s): J44.1 - CHRONIC OBSTRUCTIVE PULMONARY DISEASE W (ACUTE) EXACERBATION (2) Orthostatic hypotension Code(s): I95.1 - ORTHOSTATIC HYPOTENSION (3) Chest pain Code(s): R07.9 - CHEST PAIN, UNSPECIFIED Qualifiers: Chest pain type: unspecified Qualified Code(s): R07.9 - Chest pain, unspecified (4) BPH (benign prostatic hyperplasia) Code(s): N40.0 - BENIGN PROSTATIC HYPERPLASIA WITHOUT LOWER URINRY TRACT SYMP Qualifiers: Lower urinary tract symptom detail: unspecified Visit type - Emergency Visit Emergency Visit: Yes ED Registration Date: 12/05/17 Care time: The patient presented to the Emergency Department on the above date and was hospitalized for further evaluation of their emergent condition. - New Patient This patient is new to me today: No - Critical Care Critical Care patient: No - Discharge Referral Referred to [facility] Med P.C.: No
[2017-12-09] MEDS: methylPREDNISolone NA SUCC 125 MG/2 ML VIAL IVPUSH SCH (18:24)
[2017-12-09] MEDS: ROSUVASTATIN CA 20 MG TABLET (FP) PO SCH (21:51)
[2017-12-09] MEDS: PATIENT'S OWN MEDICATION (NON-FORMULARY) (Silodosin [Rapaflo] 8 MG) PO SCH (21:52)
[2017-12-10] MEDS: methylPREDNISolone NA SUCC 125 MG/2 ML VIAL IVPUSH SCH ×3 (02:00→18:26)
--- NOTE | 2017-12-10 07:25 | PN ---
Progress Note, Physician History of Present Illness: PULMONARY LESS DYSPNEIC,+ COUGH,-ABD DISCOMFORT. - Current Medication List Current Medications: Active Medications Albuterol Sulfate (Ventolin 0.083% Nebulizer Soln -) 1 amp NEB Q4H PRN PRN Reason: SHORT OF BREATH/WHEEZING Last Admin: 12/09/17 10:17 Dose: 1 amp Amlodipine Besylate (Norvasc -) 2.5 mg PO DAILY [facility] Last Admin: 12/09/17 10:16 Dose: 2.5 mg Arformoterol Tartrate (Brovana (Restricted To Pulmonology/Resp) -) 1 amp NEB RBID [facility] Last Admin: 12/09/17 21:51 Dose: 1 amp Aspirin (Asa -) 81 mg PO DAILY [facility] Last Admin: 12/09/17 10:15 Dose: 81 mg Azithromycin (Zithromax -) 250 mg PO DAILY [facility] Last Admin: 12/09/17 10:15 Dose: 250 mg Enoxaparin Sodium (Lovenox -) 40 mg SQ DAILY [facility] Last Admin: 12/09/17 10:18 Dose: 40 mg Guaifenesin (Mucinex -) 600 mg PO BID [facility] Last Admin: 12/09/17 21:51 Dose: 600 mg Lorazepam (Ativan -) 0.5 mg PO BID PRN PRN Reason: ANXIETY Losartan Potassium (Cozaar -) 50 mg PO DAILY [facility] Last Admin: 12/09/17 10:16 Dose: 50 mg Methylprednisolone Sodium Succinate (Solu-Medrol -) 60 mg IVPUSH Q8H-IV [facility] Last Admin: 12/10/17 02:00 Dose: 60 mg Nitroglycerin (Nitrostat -) 0.4 mg SL Q5M PRN PRN Reason: FOR CHEST PAIN Last Admin: 12/04/17 03:10 Dose: 0.4 mg Non-Formulary Medication (Silodosin [Rapaflo]) 8 mg PO HS [facility] Last Admin: 12/09/17 21:52 Dose: 8 mg Pantoprazole Sodium (Protonix -) 40 mg PO DAILY [facility] Last Admin: 12/09/17 10:16 Dose: 40 mg Polyethylene Glycol (Miralax (For Daily Use) -) 17 gm PO DAILY [facility] Last Admin: 12/09/17 10:00 Dose: 17 gm Rosuvastatin Calcium (Crestor -) 20 mg PO HS [facility] Last Admin: 12/09/17 21:51 Dose: 20 mg Tiotropium [place] (Spiriva -) 1 puff IH DAILY [facility] Last Admin: 12/09/17 10:00 Dose: 1 puff - Objective Vital Signs: Vital Signs Temperature 97.6 F 12/10/17 06:00 Pulse Rate 97 H 12/10/17 06:00 Respiratory Rate 19 12/10/17 06:00 Blood Pressure 180/95 12/10/17 06:00 O2 Sat by Pulse Oximetry (%) 100 12/10/17 06:28 Constitutional: Yes: Well Nourished, Calm Eyes: Yes: WNL HENT: Yes: WNL Neck: Yes: WNL Cardiovascular: Yes: Regular Rate and Rhythm, S1 Respiratory: Yes: Diminished Gastrointestinal: Yes: Normal Bowel Sounds, Soft Extremities: Yes: WNL Edema: No Labs: CBC, BMP Problem List - Problems (1) BPH (benign prostatic hyperplasia) Code(s): N40.0 - BENIGN PROSTATIC HYPERPLASIA WITHOUT LOWER URINRY TRACT SYMP Qualifiers: Lower urinary tract symptom detail: unspecified (2) COPD with acute exacerbation Code(s): J44.1 - CHRONIC OBSTRUCTIVE PULMONARY DISEASE W (ACUTE) EXACERBATION (3) Chest pain Code(s): R07.9 - CHEST PAIN, UNSPECIFIED Qualifiers: Chest pain type: unspecified Qualified Code(s): R07.9 - Chest pain, unspecified (4) Orthostatic hypotension Code(s): I95.1 - ORTHOSTATIC HYPOTENSION Assessment/Plan IMP COPD EXACERBATION LIKELY URI MILD MEDIASTINAL ADENOPATHY ? REACTIVE R HILAR PULMONARY NODULE VS NODE HTN H/O ORTHOSTATIC HYPOTENSION BPH PLAN STEROIDS SYMBICORT 160/4.5 O2 INHALED BRONCHODILATORS ZITHROMAX 250 DAILY O2 SAT AT REST AND POST EXERCISE ON RA DR BASS Problem List - Problems (1) BPH (benign prostatic hyperplasia) Code(s): N40.0 - BENIGN PROSTATIC HYPERPLASIA WITHOUT LOWER URINRY TRACT SYMP Qualifiers: Lower urinary tract symptom detail: unspecified (2) COPD with acute exacerbation Code(s): J44.1 - CHRONIC OBSTRUCTIVE PULMONARY DISEASE W (ACUTE) EXACERBATION (3) Chest pain Code(s): R07.9 - CHEST PAIN, UNSPECIFIED Qualifiers: Chest pain type: unspecified Qualified Code(s): R07.9 - Chest pain, unspecified (4) Orthostatic hypotension Code(s): I95.1 - ORTHOSTATIC HYPOTENSION
[2017-12-10] MEDS: ARFORMOTEROL TARTRATE 15 MCG/2 ML VIAL NEB SCH (08:40)
[2017-12-10 09:09] LABS: ANION GAP 6 (8-16); BLOOD UREA NITROGEN 19 mg/dl (7-18); CHLORIDE 102 mmol/L (98-107); CO2 25 mmol/L (22-28); CREATININE 1.1 mg/dl (0.6-1.3); GLUCOSE,RANDOM 103 mg/dl (74-106); MAGNESIUM 2.3 mg/dL (1.8-2.4); PHOSPHOROUS 3.5 mg/dl (2.5-4.6); POTASSIUM 4.1 mmol/L (3.5-5.1); SODIUM 133 mmol/L (136-145)
[2017-12-10] MEDS: PANTOPRAZOLE 40 MG TABLET (FP) PO SCH (09:20)
[2017-12-10] MEDS: AZITHROMYCIN 250 MG TABLET PO SCH (09:20)
[2017-12-10] MEDS: amLODIPine BESYLATE 2.5 MG TABLET (FP) PO SCH (09:20)
[2017-12-10] MEDS: ASPIRIN 81 MG CHEWABLE TABLETS PO SCH (09:20)
[2017-12-10] MEDS: LOSARTAN POTASSIUM 50 MG TABLET (FP) PO SCH (09:20)
[2017-12-10] MEDS: guaiFENesin 600 MG TABLET.ER (FP) PO SCH ×2 (09:20→21:25)
[2017-12-10] MEDS: POLYETHYLENE GLYCOL 3350 119 GM BTL PO SCH (09:21)
[2017-12-10] MEDS: ENOXAPARIN NA (PORCINE) 40 MG/0.4 ML DISP.SYRIN SQ SCH (09:21)
[2017-12-10] MEDS: TIOTROPIUM BROMIDE 18 MCG/INH (DEVICE W/ 5 CAPSULES) IH SCH (09:21)
[2017-12-10] MEDS ORDERED: PT OWN MED DRAWER 7, Y5N ONE ×3 (09:22→21:09)
[2017-12-10] MEDS ORDERED: MELATONIN 5 MG TABLETS PO PRN (10:27)
[2017-12-10 11:25] LABS: BASO % 0.2 % (0-2.0); EOS % 0.1 % (0-4.5); HEMATOCRIT 49.7 % (35.4-49); HEMOGLOBIN 15.8 GM/dL (11.7-16.9); LYMPH % 4.4 % (8-40); MCH 28.2 pg (25.7-33.7); MCHC 31.9 g/dl (32.0-35.9); MEAN CELL VOLUME 88.3 fl (80-96); MEAN PLT VOLUME 9.2 fl (7.5-11.1); MONO % 6.4 % (3.8-10.2); NEUT % 88.9 % (42.8-82.8); PLATELET COUNT 272 K/MM3 (134-434); RBC 5.62 M/mm3 (4.00-5.60); RDW 14.3 % (11.9-15.9); WHITE BLOOD COUNT 17.5 K/mm3 (4.0-10.0)
[2017-12-10] MEDS: BUDESONIDE/FORMETEROL FUMARATE 160/4.5 mcg INHALER IH SCH ×2 (12:00→21:25)
--- NOTE | 2017-12-10 13:30 | PN ---
Physical Exam: SUBJECTIVE: Patient seen and examined, patient reports feeling improved. OBJECTIVE:Patient is a 72 year old male with a past medical history of COPD, hypertension, orthostatic hypotension, and BPH. patient was admitted from the emergency department for copd excerbation. Vital Signs Period Temp Pulse Resp BP Sys/Schafer Pulse Ox Last 24 Hr 97.5 F-97.9 F 91-103 18-19 131-180/87-95 100-100 GENERAL: The patient is awake, alert, and fully oriented, in no acute distress. HEAD: Normal with no signs of trauma. EYES: PERRL, extraocular movements intact, sclera anicteric, conjunctiva clear. No ptosis. ENT: Ears normal, nares patent, oropharynx clear without exudates, moist mucous membranes. NECK: Trachea midline, full range of motion, supple. LUNGS: Breath sounds equal, diminished to bases, clear to auscultation bilaterally to apexes, no wheezes, no crackles, no accessory muscle use. HEART: Regular rate and rhythm, S1, S2 without murmur, rub or gallop. ABDOMEN: Soft, nontender, nondistended, normoactive bowel sounds, no guarding, no rebound, no hepatosplenomegaly, no masses. EXTREMITIES: 2+ pulses, warm, well-perfused, no edema. NEUROLOGICAL: Cranial nerves II through XII grossly intact. Normal speech, gait not observed. PSYCH: Normal mood, normal affect. SKIN: Warm, dry, normal turgor, no rashes or lesions noted Laboratory Results - last 24 hr 12/09/17 12/10/17 12/10/17 09:00 07:35 07:35 WBC 17.5 H RBC 5.62 H Hgb 15.8 Hct 49.7 H MCV 88.3 MCH 28.2 MCHC 31.9 L RDW 14.3 Plt Count No Result Required. 272 MPV 9.2 Neutrophils % 88.9 H Lymphocytes % 4.4 L D Monocytes % 6.4 Eosinophils % 0.1 D Basophils % 0.2 Platelet Comment Mod plt clumping Sodium 133 L Potassium 4.1 Chloride 102 Carbon Dioxide 25 Anion Gap 6 L BUN 19 H Creatinine 1.1 Random Glucose 103 Calcium 9.0 Phosphorus 3.5 D Magnesium 2.3 Active Medications Generic Name Dose Route Start Last Admin Trade Name Freq PRN Reason Stop Dose Admin Albuterol Sulfate 1 amp 12/05/17 14:20 12/09/17 10:17 Ventolin 0.083% Nebulizer Soln - NEB 1 amp Q4H PRN Administration SHORT OF BREATH/WHEEZING Amlodipine Besylate 2.5 mg 12/07/17 13:15 12/10/17 09:20 Norvasc - PO 2.5 mg DAILY [facility]A Administration Aspirin 81 mg 12/04/17 10:00 12/10/17 09:20 Asa - PO 81 mg DAILY [facility] Administration Azithromycin 250 mg 12/07/17 12:30 12/10/17 09:20 Zithromax - PO 250 mg DAILY [facility] Administration Budesonide/Formoterol Fumarate 2 puff 12/10/17 11:30 Symbicort 160/4.5mcg - IH BID [facility] Enoxaparin Sodium 40 mg 12/08/17 10:00 12/10/17 09:21 Lovenox - SQ 40 mg DAILY [facility] Administration Guaifenesin 600 mg 12/04/17 11:30 12/10/17 09:20 Mucinex - PO 600 mg BID [facility] Administration Lorazepam 0.5 mg 12/07/17 08:54 Ativan - PO BID PRN ANXIETY Losartan Potassium 50 mg 12/07/17 10:00 12/10/17 09:20 Cozaar - PO 50 mg DAILY [facility] Administration Melatonin 5 mg 12/10/17 10:27 Melatonin PO HS PRN INSOMNIA Methylprednisolone Sodium Succinate 60 mg 12/09/17 18:00 12/10/17 09:20 Solu-Medrol - IVPUSH 60 mg Q8H-IV [facility] Administration Nitroglycerin 0.4 mg 12/04/17 03:13 12/04/17 03:10 Nitrostat - SL 0.4 mg Q5M PRN Administration FOR CHEST PAIN Non-Formulary Medication 8 mg 12/04/17 22:00 12/09/17 21:52 Silodosin [Rapaflo] PO 8 mg HS [facility] Administration Pantoprazole Sodium 40 mg 12/03/17 10:00 12/10/17 09:20 Protonix - PO 40 mg DAILY [facility] Administration Polyethylene Glycol 17 gm 12/06/17 10:00 12/10/17 09:21 Miralax (For Daily Use) - PO Not Given DAILY [facility] Rosuvastatin Calcium 20 mg 12/04/17 22:00 12/09/17 21:51 Crestor - PO 20 mg HS [facility]A Administration Tiotropium [place] 1 puff 12/04/17 10:00 12/10/17 09:21 Spiriva - IH 1 inh DAILY [facility] Administration Microbiology 12/03/17 06:40 Nasopharyngeal Swab Influenza Types A,B Antigen (ADRIAN) - Final , negative 12/03/17 06:40 Nasopharyngeal Swab - Final, negative Imaging: ct of chest w/contrast: no evidence of PE, PNA, or pulmonary edema, advanced centrilobar emphysematous changes, 1.4 x 1.2cm nodular soft tissue in the right hilar region, ? neoplasm. CTA 12/07/2017: No evidence of PE CxR: No acute pathology echo ef 70%, grade I diastolic dysfunction ASSESSMENT/PLAN: 1) pulmonary COPD exacerbation, acute on chronic - PRYOR improving continue, solumedrol 60mg IV tid, symbicort, and spiriva, prn albuterol nebulizers - leukocytosis noted secondary to solumedrol, pt is a afebrile, continue zithromax daily - keep spo2 above 92% with supplemental O2 as needed - peak flow - pulmonary consulted and followed 2) cardiology chest pain resolved - troponin x 3 wnl hypertension - continue losartan and norvasc, strict b/p monitoring -cardiology consulted and following F.E N vegeterian diet, replete lytes Hyponatremia - improving Prophy: Protonix, lovenox, SCDS, ambulation Problem List - Problems (1) COPD with acute exacerbation Code(s): J44.1 - CHRONIC OBSTRUCTIVE PULMONARY DISEASE W (ACUTE) EXACERBATION (2) Orthostatic hypotension Code(s): I95.1 - ORTHOSTATIC HYPOTENSION (3) Chest pain Code(s): R07.9 - CHEST PAIN, UNSPECIFIED Qualifiers: Chest pain type: unspecified Qualified Code(s): R07.9 - Chest pain, unspecified (4) BPH (benign prostatic hyperplasia) Code(s): N40.0 - BENIGN PROSTATIC HYPERPLASIA WITHOUT LOWER URINRY TRACT SYMP Qualifiers: Lower urinary tract symptom detail: unspecified Visit type - Emergency Visit Emergency Visit: Yes ED Registration Date: 12/05/17 Care time: The patient presented to the Emergency Department on the above date and was hospitalized for further evaluation of their emergent condition. - New Patient This patient is new to me today: No - Critical Care Critical Care patient: No - Discharge Referral Referred to [facility] Med P.C.: No
[2017-12-10] MEDS: ROSUVASTATIN CA 20 MG TABLET (FP) PO SCH (21:25)
[2017-12-10] MEDS: PATIENT'S OWN MEDICATION (NON-FORMULARY) (Silodosin [Rapaflo] 8 MG) PO SCH (21:25)
[2017-12-11] MEDS: methylPREDNISolone NA SUCC 125 MG/2 ML VIAL IVPUSH SCH ×2 (01:26→10:21)
--- NOTE | 2017-12-11 07:59 | PN ---
Progress Note, Physician History of Present Illness: pulmonary alert,feeling better,less dyspneic,less cough - Current Medication List Current Medications: Active Medications Albuterol Sulfate (Ventolin 0.083% Nebulizer Soln -) 1 amp NEB Q4H PRN PRN Reason: SHORT OF BREATH/WHEEZING Last Admin: 12/09/17 10:17 Dose: 1 amp Amlodipine Besylate (Norvasc -) 2.5 mg PO DAILY [facility] Last Admin: 12/10/17 09:20 Dose: 2.5 mg Aspirin (Asa -) 81 mg PO DAILY [facility] Last Admin: 12/10/17 09:20 Dose: 81 mg Azithromycin (Zithromax -) 250 mg PO DAILY [facility] Last Admin: 12/10/17 09:20 Dose: 250 mg Budesonide/Formoterol Fumarate (Symbicort 160/4.5mcg -) 2 puff IH BID [facility] Last Admin: 12/10/17 21:25 Dose: 2 inh Enoxaparin Sodium (Lovenox -) 40 mg SQ DAILY [facility] Last Admin: 12/10/17 09:21 Dose: 40 mg Guaifenesin (Mucinex -) 600 mg PO BID [facility] Last Admin: 12/10/17 21:25 Dose: 600 mg Lorazepam (Ativan -) 0.5 mg PO BID PRN PRN Reason: ANXIETY Losartan Potassium (Cozaar -) 50 mg PO DAILY [facility] Last Admin: 12/10/17 09:20 Dose: 50 mg Melatonin (Melatonin) 5 mg PO HS PRN PRN Reason: INSOMNIA Methylprednisolone Sodium Succinate (Solu-Medrol -) 60 mg IVPUSH Q8H-IV [facility] Last Admin: 12/11/17 01:26 Dose: 60 mg Nitroglycerin (Nitrostat -) 0.4 mg SL Q5M PRN PRN Reason: FOR CHEST PAIN Last Admin: 12/04/17 03:10 Dose: 0.4 mg Non-Formulary Medication (Silodosin [Rapaflo]) 8 mg PO HS [facility] Last Admin: 12/10/17 21:25 Dose: 8 mg Pantoprazole Sodium (Protonix -) 40 mg PO DAILY [facility] Last Admin: 12/10/17 09:20 Dose: 40 mg Polyethylene Glycol (Miralax (For Daily Use) -) 17 gm PO DAILY [facility] Last Admin: 12/10/17 09:21 Dose: Not Given Rosuvastatin Calcium (Crestor -) 20 mg PO HS [facility] Last Admin: 12/10/17 21:25 Dose: 20 mg Tiotropium [place] (Spiriva -) 1 puff IH DAILY [facility] Last Admin: 12/10/17 09:21 Dose: 1 inh - Objective Vital Signs: Vital Signs Temperature 97.6 F 12/11/17 05:45 Pulse Rate 77 12/11/17 05:45 Respiratory Rate 18 12/11/17 05:45 Blood Pressure 145/89 12/11/17 05:45 O2 Sat by Pulse Oximetry (%) 98 12/11/17 05:45 Constitutional: Yes: Well Nourished, Calm Eyes: Yes: WNL HENT: Yes: WNL Neck: Yes: WNL Cardiovascular: Yes: Regular Rate and Rhythm, S1, S2 Respiratory: Yes: Diminished Gastrointestinal: Yes: Normal Bowel Sounds, Soft Extremities: Yes: WNL Edema: No Problem List - Problems (1) BPH (benign prostatic hyperplasia) Code(s): N40.0 - BENIGN PROSTATIC HYPERPLASIA WITHOUT LOWER URINRY TRACT SYMP Qualifiers: Lower urinary tract symptom detail: unspecified (2) COPD with acute exacerbation Code(s): J44.1 - CHRONIC OBSTRUCTIVE PULMONARY DISEASE W (ACUTE) EXACERBATION (3) Chest pain Code(s): R07.9 - CHEST PAIN, UNSPECIFIED Qualifiers: Chest pain type: unspecified Qualified Code(s): R07.9 - Chest pain, unspecified (4) Orthostatic hypotension Code(s): I95.1 - ORTHOSTATIC HYPOTENSION Assessment/Plan IMP COPD EXACERBATION IMPROVING LIKELY URI MILD MEDIASTINAL ADENOPATHY ? REACTIVE R HILAR PULMONARY NODULE HTN H/O ORTHOSTATIC HYPOTENSION BPH PLAN STEROID TAPER SYMBICORT 160/4.5 O2 INHALED BRONCHODILATORS ZITHROMAX 250 DAILY O2 SAT AT REST AND POST EXERCISE ON RA HOPEFULLY DC HOME IN AM DR BASS Problem List - Problems (1) BPH (benign prostatic hyperplasia) Code(s): N40.0 - BENIGN PROSTATIC HYPERPLASIA WITHOUT LOWER URINRY TRACT SYMP Qualifiers: Lower urinary tract symptom detail: unspecified (2) COPD with acute exacerbation Code(s): J44.1 - CHRONIC OBSTRUCTIVE PULMONARY DISEASE W (ACUTE) EXACERBATION (3) Chest pain Code(s): R07.9 - CHEST PAIN, UNSPECIFIED Qualifiers: Chest pain type: unspecified Qualified Code(s): R07.9 - Chest pain, unspecified (4) Orthostatic hypotension Code(s): I95.1 - ORTHOSTATIC HYPOTENSION
[2017-12-11 08:00] LABS: ANION GAP 5 (8-16); BLOOD UREA NITROGEN 22 mg/dl (7-18); CALCIUM 9.1 mg/dl (8.4-10.2); CHLORIDE 100 mmol/L (98-107); CO2 26 mmol/L (22-28); CREATININE 1.2 mg/dl (0.6-1.3); GLUCOSE,RANDOM 94 mg/dl (74-106); MAGNESIUM 2.3 mg/dL (1.8-2.4); PHOSPHOROUS 4.1 mg/dl (2.5-4.6); POTASSIUM 4.9 mmol/L (3.5-5.1); SODIUM 131 mmol/L (136-145)
[2017-12-11 09:10] LABS: BASO % 0.4 % (0-2.0); HEMATOCRIT 52.8 % (35.4-49); HEMOGLOBIN 16.8 GM/dL (11.7-16.9); LYMPH % 6.7 % (8-40); MCH 28.5 pg (25.7-33.7); MCHC 31.9 g/dl (32.0-35.9); MEAN CELL VOLUME 89.5 fl (80-96); MEAN PLT VOLUME 9.3 fl (7.5-11.1); NEUT % 87.9 % (42.8-82.8); RDW 14.2 % (11.9-15.9); WHITE BLOOD COUNT 18.6 K/mm3 (4.0-10.0)
--- NOTE | 2017-12-11 09:58 | PN ---
Progress Note, Physician History of Present Illness: Dyspnea on exertion, chest tightness and cough improved. - Current Medication List Current Medications: Active Medications Albuterol Sulfate (Ventolin 0.083% Nebulizer Soln -) 1 amp NEB Q4H PRN PRN Reason: SHORT OF BREATH/WHEEZING Last Admin: 12/09/17 10:17 Dose: 1 amp Amlodipine Besylate (Norvasc -) 2.5 mg PO DAILY [facility] Last Admin: 12/10/17 09:20 Dose: 2.5 mg Aspirin (Asa -) 81 mg PO DAILY [facility] Last Admin: 12/10/17 09:20 Dose: 81 mg Azithromycin (Zithromax -) 250 mg PO DAILY [facility] Last Admin: 12/10/17 09:20 Dose: 250 mg Budesonide/Formoterol Fumarate (Symbicort 160/4.5mcg -) 2 puff IH BID [facility] Last Admin: 12/10/17 21:25 Dose: 2 inh Enoxaparin Sodium (Lovenox -) 40 mg SQ DAILY [facility] Last Admin: 12/10/17 09:21 Dose: 40 mg Guaifenesin (Mucinex -) 600 mg PO BID [facility] Last Admin: 12/10/17 21:25 Dose: 600 mg Lorazepam (Ativan -) 0.5 mg PO BID PRN PRN Reason: ANXIETY Losartan Potassium (Cozaar -) 50 mg PO DAILY [facility] Last Admin: 12/10/17 09:20 Dose: 50 mg Melatonin (Melatonin) 5 mg PO HS PRN PRN Reason: INSOMNIA Methylprednisolone Sodium Succinate (Solu-Medrol -) 60 mg IVPUSH Q8H-IV [facility] Last Admin: 12/11/17 01:26 Dose: 60 mg Nitroglycerin (Nitrostat -) 0.4 mg SL Q5M PRN PRN Reason: FOR CHEST PAIN Last Admin: 12/04/17 03:10 Dose: 0.4 mg Non-Formulary Medication (Silodosin [Rapaflo]) 8 mg PO HS [facility] Last Admin: 12/10/17 21:25 Dose: 8 mg Pantoprazole Sodium (Protonix -) 40 mg PO DAILY [facility] Last Admin: 12/10/17 09:20 Dose: 40 mg Polyethylene Glycol (Miralax (For Daily Use) -) 17 gm PO DAILY [facility] Last Admin: 02/14/18 09:21 Dose: Not Given Rosuvastatin Calcium (Crestor -) 20 mg PO HS [facility] Last Admin: 12/10/17 21:25 Dose: 20 mg Tiotropium [place] (Spiriva -) 1 puff IH DAILY [facility] Last Admin: 12/10/17 09:21 Dose: 1 inh - Objective Vital Signs: Vital Signs Temperature 97.6 F 12/11/17 05:45 Pulse Rate 77 12/11/17 05:45 Respiratory Rate 18 12/11/17 05:45 Blood Pressure 145/89 12/11/17 05:45 O2 Sat by Pulse Oximetry (%) 98 12/11/17 05:45 Constitutional: Yes: No Distress, Calm, Thin Neck: Yes: Supple Cardiovascular: Yes: Regular Rate and Rhythm Respiratory: Yes: Regular, Diminished, On Nasal O2 Gastrointestinal: Yes: Normal Bowel Sounds, Soft Edema: No Labs: CBC, BMP 12/11/17 07:15 12/11/17 07:15 INR, PTT INR 0.89 (0.82-1.09) 12/03/17 04:25 Problem List - Problems (1) Labile essential hypertension Code(s): I10 - ESSENTIAL (PRIMARY) HYPERTENSION (2) BPH (benign prostatic hyperplasia) Code(s): N40.0 - BENIGN PROSTATIC HYPERPLASIA WITHOUT LOWER URINRY TRACT SYMP Qualifiers: Lower urinary tract symptom detail: unspecified (3) COPD with acute exacerbation Code(s): J44.1 - CHRONIC OBSTRUCTIVE PULMONARY DISEASE W (ACUTE) EXACERBATION (4) Chest pain Code(s): R07.9 - CHEST PAIN, UNSPECIFIED Qualifiers: Chest pain type: unspecified Qualified Code(s): R07.9 - Chest pain, unspecified (5) Orthostatic hypotension Code(s): I95.1 - ORTHOSTATIC HYPOTENSION (6) Acute on chronic respiratory failure with hypoxia Code(s): J96.21 - ACUTE AND CHRONIC RESPIRATORY FAILURE WITH HYPOXIA Assessment/Plan 12/03/2017 Echo: Normal LV size and fxn, abnl LV compliance, mild AR, tr MR 07/04/17 ETT Myoview: No ischemia, LVEF>70% 06/27/17 Echo: Normal biventricular size and fxn. mild TR 1. Acute exacerbation of COPD 2. Acute on chronic hypoxic failure 3. Right hilar pulmonary nodule 4. Atypical chest tightness referable to above 5. Labile hypertension with orthostasis 6. Hyperlipidemia 7. BPH P: 1. IV steroid taper with GI protection, BD, O2 to maintain saO2>90%, empiric abx course, O2 sat at rest and post-exercise on RA 2. Continue ASA 81 qd, Crestor 20 qhs, losartan 50 qd and amlodipine 2.5 qd 3. Pulm nodule f/u with [employer] 4. DVT prophylaxis
[2017-12-11] MEDS ORDERED: PT OWN MED DRAWER 7, Y5N ONE ×2 (10:10→21:04)
[2017-12-11] MEDS: PANTOPRAZOLE 40 MG TABLET (FP) PO SCH (10:21)
[2017-12-11] MEDS: guaiFENesin 600 MG TABLET.ER (FP) PO SCH ×2 (10:21→21:09)
[2017-12-11] MEDS: ASPIRIN 81 MG CHEWABLE TABLETS PO SCH (10:21)
[2017-12-11] MEDS: TIOTROPIUM BROMIDE 18 MCG/INH (DEVICE W/ 5 CAPSULES) IH SCH (10:21)
[2017-12-11] MEDS: AZITHROMYCIN 250 MG TABLET PO SCH (10:21)
[2017-12-11] MEDS: amLODIPine BESYLATE 2.5 MG TABLET (FP) PO SCH (10:22)
[2017-12-11] MEDS: BUDESONIDE/FORMETEROL FUMARATE 160/4.5 mcg INHALER IH SCH ×2 (10:22→21:09)
[2017-12-11] MEDS: ENOXAPARIN NA (PORCINE) 40 MG/0.4 ML DISP.SYRIN SQ SCH (10:22)
[2017-12-11] MEDS: LOSARTAN POTASSIUM 50 MG TABLET (FP) PO SCH (10:22)
[2017-12-11] MEDS: POLYETHYLENE GLYCOL 3350 119 GM BTL PO SCH (10:22)
--- NOTE | 2017-12-11 13:46 | PN ---
Physical Exam: SUBJECTIVE: Patient seen and examined, patient is sitting in bedside chair, reports significant improvement of dyspnea upon exertion. OBJECTIVE:Patient is a 72 year old male with a past medical history of COPD, hypertension, orthostatic hypotension, and BPH. patient was admitted from the emergency department for copd excerbation. Vital Signs Period Temp Pulse Resp BP Sys/Schafer Pulse Ox Last 24 Hr 97.5 F-98.4 F 77-91 18-19 141-158/86-97 96-98 GENERAL: The patient is awake, alert, and fully oriented, in no acute distress. HEAD: Normal with no signs of trauma. EYES: PERRL, extraocular movements intact, sclera anicteric, conjunctiva clear. No ptosis. ENT: Ears normal, nares patent, oropharynx clear without exudates, moist mucous membranes. NECK: Trachea midline, full range of motion, supple. LUNGS: Breath sounds equal, diminished to bases, clear to auscultation bilaterally to apexes, no wheezes, no crackles, no accessory muscle use. HEART: Regular rate and rhythm, S1, S2 without murmur, rub or gallop. ABDOMEN: Soft, nontender, nondistended, normoactive bowel sounds, no guarding, no rebound, no hepatosplenomegaly, no masses. EXTREMITIES: 2+ pulses, warm, well-perfused, no edema. NEUROLOGICAL: Cranial nerves II through XII grossly intact. Normal speech, gait not observed. PSYCH: Normal mood, normal affect. SKIN: Warm, dry, normal turgor, no rashes or lesions noted Laboratory Results - last 24 hr 12/11/17 12/11/17 07:15 07:15 WBC 18.6 H RBC 5.90 H Hgb 16.8 Hct 52.8 H MCV 89.5 MCH 28.5 MCHC 31.9 L RDW 14.2 Plt Count MPV 9.3 Neutrophils % 87.9 H Lymphocytes % 6.7 L D Monocytes % 5.0 Eosinophils % 0.0 D Basophils % 0.4 Platelet Comment Mod plt clumping Sodium 131 L Potassium 4.9 Chloride 100 Carbon Dioxide 26 Anion Gap 5 L BUN 22 H Creatinine 1.2 Random Glucose 94 Calcium 9.1 Phosphorus 4.1 Magnesium 2.3 Active Medications Generic Name Dose Route Start Last Admin Trade Name Freq PRN Reason Stop Dose Admin Albuterol Sulfate 1 amp 12/05/17 14:20 12/09/17 10:17 Ventolin 0.083% Nebulizer Soln - NEB 1 amp Q4H PRN Administration SHORT OF BREATH/WHEEZING Amlodipine Besylate 2.5 mg 12/07/17 13:15 12/11/17 10:22 Norvasc - PO 2.5 mg DAILY ELVIRA Administration Aspirin 81 mg 12/04/17 10:00 12/11/17 10:21 Asa - PO 81 mg DAILY ELVIRA Administration Azithromycin 250 mg 12/07/17 12:30 12/11/17 10:21 Zithromax - PO 250 mg DAILY ELVIRA Administration Budesonide/Formoterol Fumarate 2 puff 12/10/17 11:30 12/11/17 10:22 Symbicort 160/4.5mcg - IH 2 inh BID ELVIRA Administration Enoxaparin Sodium 40 mg 12/08/17 10:00 12/11/17 10:22 Lovenox - SQ 40 mg DAILY ELVIRA Administration Guaifenesin 600 mg 12/04/17 11:30 12/11/17 10:21 Mucinex - PO 600 mg BID ELVIRA Administration Lorazepam 0.5 mg 12/07/17 08:54 12/11/17 10:21 Ativan - PO 0.5 mg BID PRN Administration ANXIETY Losartan Potassium 50 mg 12/07/17 10:00 12/11/17 10:22 Cozaar - PO 50 mg DAILY ELVIRA Administration Melatonin 5 mg 12/10/17 10:27 Melatonin PO HS PRN INSOMNIA Methylprednisolone Sodium Succinate 40 mg 12/11/17 22:00 Solu-Medrol - IVPUSH BID [facility] Nitroglycerin 0.4 mg 12/04/17 03:13 12/04/17 03:10 Nitrostat - SL 0.4 mg Q5M PRN Administration FOR CHEST PAIN Non-Formulary Medication 8 mg 12/04/17 22:00 12/10/17 21:25 Silodosin [Rapaflo] PO 8 mg HS ELVIRA Administration Pantoprazole Sodium 40 mg 12/03/17 10:00 12/11/17 10:21 Protonix - PO 40 mg DAILY ELVIRA Administration Polyethylene Glycol 17 gm 12/06/17 10:00 12/11/17 10:22 Miralax (For Daily Use) - PO 17 gm DAILY [facility] Administration Rosuvastatin Calcium 20 mg 12/04/17 22:00 12/10/17 21:25 Crestor - PO 20 mg HS ELVIRA Administration Tiotropium [place] 1 puff 12/04/17 10:00 12/11/17 10:21 Spiriva - IH 1 inh DAILY ELVIRA Administration Microbiology 12/03/17 06:40 Nasopharyngeal Swab Influenza Types A,B Antigen (ADRIAN) - Final , negative 12/03/17 06:40 Nasopharyngeal Swab - Final, negative Imaging: ct of chest w/contrast: no evidence of PE, PNA, or pulmonary edema, advanced centrilobar emphysematous changes, 1.4 x 1.2cm nodular soft tissue in the right hilar region, ? neoplasm. CTA 12/07/2017: No evidence of PE CxR: No acute pathology echo ef 70%, grade I diastolic dysfunction ASSESSMENT/PLAN: 1) pulmonary COPD exacerbation, acute on chronic - PRYOR much improved, taper down solumedrol 40mg IV bid, symbicort, and spiriva , prn albuterol nebulizers - leukocytosis noted secondary to solumedrol, pt is a afebrile, continue zithromax daily - keep spo2 above 92% with supplemental O2 as needed - peak flow - pulmonary consulted and followed 2) cardiology chest pain resolved - troponin x 3 wnl hypertension - continue losartan and norvasc, strict b/p monitoring -cardiology consulted and following F.E N vegeterian diet, replete lytes Hyponatremia - improving Prophy: Protonix, lovenox, SCDS, ambulation Problem List - Problems (1) COPD with acute exacerbation Code(s): J44.1 - CHRONIC OBSTRUCTIVE PULMONARY DISEASE W (ACUTE) EXACERBATION (2) Orthostatic hypotension Code(s): I95.1 - ORTHOSTATIC HYPOTENSION (3) Chest pain Code(s): R07.9 - CHEST PAIN, UNSPECIFIED Qualifiers: Chest pain type: unspecified Qualified Code(s): R07.9 - Chest pain, unspecified (4) BPH (benign prostatic hyperplasia) Code(s): N40.0 - BENIGN PROSTATIC HYPERPLASIA WITHOUT LOWER URINRY TRACT SYMP Qualifiers: Lower urinary tract symptom detail: unspecified Visit type - Emergency Visit Emergency Visit: Yes ED Registration Date: 12/05/17 Care time: The patient presented to the Emergency Department on the above date and was hospitalized for further evaluation of their emergent condition. - New Patient This patient is new to me today: No - Critical Care Critical Care patient: No - Discharge Referral Referred to [facility] No
[2017-12-11] MEDS: methylPREDNISolone NA SUCC 40 MG/1 ML VIAL IVPUSH SCH (21:08)
[2017-12-11] MEDS: ROSUVASTATIN CA 20 MG TABLET (FP) PO SCH (21:09)
[2017-12-11] MEDS: PATIENT'S OWN MEDICATION (NON-FORMULARY) (Silodosin [Rapaflo] 8 MG) PO SCH (21:16)
[2017-12-12 06:12] VITALS: BP 147/87; PULSE 76; TEMP 98.2
--- NOTE | 2017-12-12 08:01 | PN ---
Progress Note, Physician History of Present Illness: pulmonary alert,feeling better,dyspnea improved. - Current Medication List Current Medications: Active Medications Albuterol Sulfate (Ventolin 0.083% Nebulizer Soln -) 1 amp NEB Q4H PRN PRN Reason: SHORT OF BREATH/WHEEZING Last Admin: 12/09/17 10:17 Dose: 1 amp Amlodipine Besylate (Norvasc -) 2.5 mg PO DAILY [facility] Last Admin: 12/11/17 10:22 Dose: 2.5 mg Aspirin (Asa -) 81 mg PO DAILY [facility] Last Admin: 12/11/17 10:21 Dose: 81 mg Azithromycin (Zithromax -) 250 mg PO DAILY [facility] Last Admin: 12/11/17 10:21 Dose: 250 mg Budesonide/Formoterol Fumarate (Symbicort 160/4.5mcg -) 2 puff IH BID [facility] Last Admin: 12/11/17 21:09 Dose: 2 puff Enoxaparin Sodium (Lovenox -) 40 mg SQ DAILY [facility] Last Admin: 12/11/17 10:22 Dose: 40 mg Guaifenesin (Mucinex -) 600 mg PO BID [facility] Last Admin: 12/11/17 21:09 Dose: 600 mg Lorazepam (Ativan -) 0.5 mg PO BID PRN PRN Reason: ANXIETY Last Admin: 12/11/17 10:21 Dose: 0.5 mg Losartan Potassium (Cozaar -) 50 mg PO DAILY [facility] Last Admin: 12/11/17 10:22 Dose: 50 mg Melatonin (Melatonin) 5 mg PO HS PRN PRN Reason: INSOMNIA Methylprednisolone Sodium Succinate (Solu-Medrol -) 40 mg IVPUSH BID [facility] Last Admin: 12/11/17 21:08 Dose: 40 mg Nitroglycerin (Nitrostat -) 0.4 mg SL Q5M PRN PRN Reason: FOR CHEST PAIN Last Admin: 12/04/17 03:10 Dose: 0.4 mg Non-Formulary Medication (Silodosin [Rapaflo]) 8 mg PO HS [facility] Last Admin: 12/11/17 21:16 Dose: 8 mg Pantoprazole Sodium (Protonix -) 40 mg PO DAILY [facility] Last Admin: 12/11/17 10:21 Dose: 40 mg Polyethylene Glycol (Miralax (For Daily Use) -) 17 gm PO DAILY [facility] Last Admin: 12/11/17 10:22 Dose: 17 gm Rosuvastatin Calcium (Crestor -) 20 mg PO HS [facility] Last Admin: 12/11/17 21:09 Dose: 20 mg Tiotropium [place] (Spiriva -) 1 puff IH DAILY [facility] Last Admin: 12/11/17 10:21 Dose: 1 inh - Objective Vital Signs: Vital Signs Temperature 98.2 F 12/12/17 06:00 Pulse Rate 76 12/12/17 06:00 Respiratory Rate 18 12/12/17 06:00 Blood Pressure 147/87 12/12/17 06:00 O2 Sat by Pulse Oximetry (%) 99 12/12/17 06:00 Constitutional: Yes: Calm, Thin Eyes: Yes: WNL HENT: Yes: WNL Neck: Yes: WNL Cardiovascular: Yes: Regular Rate and Rhythm, S1, S2 Respiratory: Yes: Diminished Gastrointestinal: Yes: Normal Bowel Sounds, Soft Extremities: Yes: WNL Edema: No Labs: CBC, BMP 12/11/17 07:15 12/11/17 07:15 INR, PTT INR 0.89 (0.82-1.09) 12/03/17 04:25 Problem List - Problems (1) BPH (benign prostatic hyperplasia) Code(s): N40.0 - BENIGN PROSTATIC HYPERPLASIA WITHOUT LOWER URINRY TRACT SYMP Qualifiers: Lower urinary tract symptom detail: unspecified (2) COPD with acute exacerbation Code(s): J44.1 - CHRONIC OBSTRUCTIVE PULMONARY DISEASE W (ACUTE) EXACERBATION (3) Chest pain Code(s): R07.9 - CHEST PAIN, UNSPECIFIED Qualifiers: Chest pain type: unspecified Qualified Code(s): R07.9 - Chest pain, unspecified (4) Orthostatic hypotension Code(s): I95.1 - ORTHOSTATIC HYPOTENSION Assessment/Plan IMP COPD EXACERBATION IMPROVING LIKELY URI MILD MEDIASTINAL ADENOPATHY ? REACTIVE R HILAR PULMONARY NODULE HTN H/O ORTHOSTATIC HYPOTENSION BPH PLAN PREDNISONE SYMBICORT 160/4.5 O2 INHALED BRONCHODILATORS ZITHROMAX [address] BASS Problem List - Problems (1) BPH (benign prostatic hyperplasia) Code(s): N40.0 - BENIGN PROSTATIC HYPERPLASIA WITHOUT LOWER URINRY TRACT SYMP Qualifiers: Lower urinary tract symptom detail: unspecified (2) COPD with acute exacerbation Code(s): J44.1 - CHRONIC OBSTRUCTIVE PULMONARY DISEASE W (ACUTE) EXACERBATION (3) Chest pain Code(s): R07.9 - CHEST PAIN, UNSPECIFIED Qualifiers: Chest pain type: unspecified Qualified Code(s): R07.9 - Chest pain, unspecified (4) Orthostatic hypotension Code(s): I95.1 - ORTHOSTATIC HYPOTENSION
[2017-12-12] MEDS ORDERED: PT OWN MED DRAWER 7, Y5N ONE (09:16)
[2017-12-12] MEDS: guaiFENesin 600 MG TABLET.ER (FP) PO SCH (09:26)
[2017-12-12] MEDS: LOSARTAN POTASSIUM 50 MG TABLET (FP) PO SCH (09:26)
[2017-12-12] MEDS: ENOXAPARIN NA (PORCINE) 40 MG/0.4 ML DISP.SYRIN SQ SCH (09:26)
[2017-12-12] MEDS: ASPIRIN 81 MG CHEWABLE TABLETS PO SCH (09:26)
[2017-12-12] MEDS: PANTOPRAZOLE 40 MG TABLET (FP) PO SCH (09:27)
[2017-12-12] MEDS: amLODIPine BESYLATE 2.5 MG TABLET (FP) PO SCH (09:27)
[2017-12-12] MEDS: POLYETHYLENE GLYCOL 3350 119 GM BTL PO SCH (09:27)
[2017-12-12] MEDS: AZITHROMYCIN 250 MG TABLET PO SCH (09:29)
[2017-12-12] MEDS: TIOTROPIUM BROMIDE 18 MCG/INH (DEVICE W/ 5 CAPSULES) IH SCH (09:31)
[2017-12-12] MEDS: BUDESONIDE/FORMETEROL FUMARATE 160/4.5 mcg INHALER IH SCH (09:32)
[2017-12-12] MEDS: methylPREDNISolone NA SUCC 40 MG/1 ML VIAL IVPUSH SCH (09:32)
--- NOTE | 2017-12-12 11:47 | DS ---
Physical Exam: SUBJECTIVE: Patient seen and examined, patient reports feeling much improved denies any chest pain or shortness of breath, ambulatory at bedside no dypnea upon exertion is noted. OBJECTIVE:Patient is a 72 y/o male with a past medical history of COPD, orthostatic hypotension, BPH. patient reports ongoing chest pressure and shortness of breath for the past 3 days. He was evaluated by his PCP and was diagnosed with COPD exacerbation sterted on prednisone 40mg daily and vantin. patient reports taking prednisione, albuterol nebulizers as prescribed. However the chest discomfort discomfort worsened this AM and he sought evaluation in the emergency department ER course was notable for: (1)troponin x 1 wnl (2)chest xray no acute pathology noted (3)ekg nsr normal axis no st abnormality Vital Signs Period Temp Pulse Resp BP Sys/Schafer Pulse Ox Last 24 Hr 97.7 F-98.9 F 76-100 18-19 134-147/74-92 97-99 PHYSICAL EXAM GENERAL: The patient is awake, alert, and fully oriented, in no acute distress. HEAD: Normal with no signs of trauma. EYES: PERRL, extraocular movements intact, sclera anicteric, conjunctiva clear. ENT: Ears normal, nares patent, oropharynx clear without exudates, moist mucous membranes. NECK: Trachea midline, full range of motion, supple. LUNGS: Breath sounds equal, clear to auscultation bilaterally, no wheezes, no crackles, no accessory muscle use. HEART: Regular rate and rhythm, S1, S2 without murmur, rub or gallop. ABDOMEN: Soft, nontender, nondistended, normoactive bowel sounds, no guarding, no rebound, no hepatosplenomegaly, no masses. EXTREMITIES: 2+ pulses, warm, well-perfused, no edema. NEUROLOGICAL: Cranial nerves II through XII grossly intact. Normal speech, gait not observed. PSYCH: Normal mood, normal affect. SKIN: Warm, dry, normal turgor, no rashes or lesions noted. LABS CBC WBC 18.6 K/mm3 (4.0-10.0) H 12/11/17 07:15 RBC 5.90 M/mm3 (4.00-5.60) H 12/11/17 07:15 Hgb 16.8 GM/dL (11.7-16.9) 12/11/17 07:15 Hct 52.8 % (35.4-49) H 12/11/17 07:15 MCV 89.5 fl (80-96) 12/11/17 07:15 MCH 28.5 pg (25.7-33.7) 12/11/17 07:15 MCHC 31.9 g/dl (32.0-35.9) L 12/11/17 07:15 RDW 14.2 % (11.9-15.9) 12/11/17 07:15 Plt Count K/MM3 (134-434) 12/11/17 07:15 MPV 9.3 fl (7.5-11.1) 12/11/17 07:15 Total Counted 100 12/03/17 04:25 Neutrophils % 87.9 % (42.8-82.8) H 12/11/17 07:15 Neutrophils % (Manual) 85.0 % (42.8-82.8) H 12/08/17 07:30 Band Neutrophils % 1.0 % (0-10) 12/08/17 07:30 Lymphocytes % 6.7 % (8-40) L D 12/11/17 07:15 Lymphocytes % (Manual) 5.0 % (8-40) L 12/08/17 07:30 Monocytes % 5.0 % (3.8-10.2) 12/11/17 07:15 Monocytes % (Manual) 8 % (3.8-10.2) 12/08/17 07:30 Eosinophils % 0.0 % (0-4.5) D 12/11/17 07:15 Basophils % 0.4 % (0-2.0) 12/11/17 07:15 Differential Comment Marked plt clumping 12/08/17 07:30 Platelet Estimate Adequate 12/07/17 06:50 Platelet Comment Mod plt clumping 12/11/17 07:15 CMP Sodium 131 mmol/L (136-145) L 12/11/17 07:15 Potassium 4.9 mmol/L (3.5-5.1) 12/11/17 07:15 Chloride 100 mmol/L (98-107) 12/11/17 07:15 Carbon Dioxide 26 mmol/L (22-28) 12/11/17 07:15 Anion Gap 5 (8-16) L 12/11/17 07:15 BUN 22 mg/dl (7-18) H 12/11/17 07:15 Creatinine 1.2 mg/dl (0.6-1.3) 12/11/17 07:15 Creat Clearance w eGFR > 60 (>60) 12/08/17 07:30 Random Glucose 94 mg/dl (74-106) 12/11/17 07:15 Calcium 9.1 mg/dl (8.4-10.2) 12/11/17 07:15 Phosphorus 4.1 mg/dl (2.5-4.6) 12/11/17 07:15 Magnesium 2.3 mg/dL (1.8-2.4) 12/11/17 07:15 Total Bilirubin 0.8 mg/dl (0.2-1.0) 12/08/17 07:30 AST 79 U/L (10-42) H D 12/08/17 07:30 ALT 56 U/L (10-40) H D 12/08/17 07:30 Alkaline Phosphatase 52 U/L (32-92) 12/08/17 07:30 Creatine Kinase 174 IU/L (39-308) 12/04/17 03:30 Creatine Kinase Index 6.5 % (0.0-5.0) H* 12/04/17 03:30 CK-MB (CK-2) 11.455 ng/mL (0.5-3.6) H 12/04/17 03:30 Troponin I < 0.02 ng/ml (0.00-0.05) 12/04/17 03:30 Total Protein 6.4 g/dl (6.4-8.3) 12/08/17 07:30 Albumin 3.6 g/dl (3.5-5.0) 12/08/17 07:30 Triglycerides 115 mg/dl (35-160) 12/04/17 07:45 Cholesterol 211 mg/dl 12/04/17 07:45 Total LDL Cholesterol 101 mg/dl 12/04/17 07:45 HDL Cholesterol 87 mg/dl (29-89) 12/04/17 07:45 Microbiology 12/03/17 06:40 Nasopharyngeal Swab Influenza Types A,B Antigen (ADRIAN) - Final , negative 12/03/17 06:40 Nasopharyngeal Swab - Final, negative Imaging: ct of chest w/contrast: no evidence of PE, PNA, or pulmonary edema, advanced centrilobar emphysematous changes, 1.4 x 1.2cm nodular soft tissue in the right hilar region, ? neoplasm. CTA 12/07/2017: No evidence of PE CxR: No acute pathology echo ef 70%, grade I diastolic dysfunction HOSPITAL COURSE: 1) COPD exacerbation, acute on chronic - PRYOR much improved,solumedrol tapered down solumedrol 40mg IV bid, symbicort, and spiriva, prn albuterol nebulizers - leukocytosis noted secondary to solumedrol, pt is a afebrile, continue zithromax daily - keep spo2 above 92% with supplemental O2 as needed - pre an post oxygen, spo2 92% after flat surface walking - pulmonary consulted and followed 2) chest pain resolved - troponin x 3 wnl 3) hypertension - continued losartan and norvasc was added with b/p control -cardiology consulted and following Date of Admission:12/05/17 Date of Discharge: 12/12/17 Minutes to complete discharge: 45 Discharge Summary Reason For Visit: CHEST PAIN Current Active Problems Acute on chronic respiratory failure with hypoxia (Acute) BPH (benign prostatic hyperplasia) (Acute) COPD with acute exacerbation (Acute) Chest pain (Acute) Labile essential hypertension (Acute) Orthostatic hypotension (Acute) Condition: Improved - Instructions Referrals: Kenny Minaya MD [Staff Physician] - Disposition: VNS/HOME HEALTH CARE - Home Medications Comprehensive Discharge Medication List: Ambulatory Orders Albuterol Sulfate Inhaler - [Ventolin HFA Inhaler -] 1 puff IH PRN 12/03/17 Cefpodoxime Proxetil [Vantin -] 200 mg PO Q12H 12/03/17 Fludrocortisone Acetate 0.5 tab PO WEEKLY 12/03/17 Losartan Potassium 25 mg PO DAILY 12/03/17 Pantoprazole Sodium 40 mg PO DAILY 12/03/17 Rosuvastatin [Crestor -] 20 mg PO DAILY 12/03/17 Silodosin [Rapaflo] 8 mg PO DAILY 12/03/17 Umeclidinium Brm/Vilanterol Tr [Anoro Ellipta 62.5-25 Mcg INH] 1 each IH DAILY 12/03/17 predniSONE [Deltasone -] 20 mg PO BID 12/03/17 Problem List - Problems (1) COPD with acute exacerbation Code(s): J44.1 - CHRONIC OBSTRUCTIVE PULMONARY DISEASE W (ACUTE) EXACERBATION (2) Orthostatic hypotension Code(s): I95.1 - ORTHOSTATIC HYPOTENSION (3) Chest pain Code(s): R07.9 - CHEST PAIN, UNSPECIFIED Qualifiers: Chest pain type: unspecified Qualified Code(s): R07.9 - Chest pain, unspecified (4) BPH (benign prostatic hyperplasia) Code(s): N40.0 - BENIGN PROSTATIC HYPERPLASIA WITHOUT LOWER URINRY TRACT SYMP Qualifiers: Lower urinary tract symptom detail: unspecified - Discharge Referral Referred to [facility] No
== END 2017-12-12 13:00 | disposition home or self-care (01) | DRG 190 ==
LOC: FER 03:43 → FM/S 11:51 → OBSVTOIN 12-05 13:14
PROVIDERS: ADMIT Internal Medicine; ATTEND Nurse Practitioner Family
DX: J44.1 Chronic obstructive pulmonary disease with (acute) exacerbation (principal); J96.21 Acute and chronic respiratory failure with hypoxia; E87.1 Hypo-osmolality and hyponatremia; I95.1 Orthostatic hypotension; N40.0 Benign prostatic hyperplasia without lower urinary tract symptoms; I10 Essential (primary) hypertension; R91.1 Solitary pulmonary nodule; D72.829 Elevated white blood cell count, unspecified; E78.5 Hyperlipidemia, unspecified; R07.89 Other chest pain; E87.5 Hyperkalemia; K59.00 Constipation, unspecified; R59.0 Localized enlarged lymph nodes
CPT/HCPCS: 36415; 71045-TC-FY; 71275-TC; 80048; 80053; 80061; 82550; 82553; 83735; 84100; 84484; 85025; 85610; 87804; 93005; 93306-TC; 94010; 94150; 94640; 94761; 99285-25; G0378; J1644

== ENCOUNTER 2020-10-14 23:56 | Emergency (ER) | payer OTHER, BC ==
[2020-10-15 00:13] VITALS: BP 170/108; PULSE 105; TEMP 98.9; BMI 17.7
[2020-10-15] MEDS ORDERED: CEPHALEXIN 250 MG/5 ML ORAL SUSPENSION PO ONE ×2 (00:17→00:48)
[2020-10-15] MEDS ORDERED: CEPHALEXIN MONOHYDRATE 500 MG CAPSULE (UD) ONE (00:38)
[2020-10-15] MEDS ORDERED: CEPHALEXIN MONOHYDRATE 500 MG CAPSULE (UD) PO ONE (00:52)
[2020-10-15 04:54] LABS: EPI CELLS 2 /uL (0-25.1); HYALINE CASTS 7 /uL (0-3.1); PH,URINE 5.5 (5.0-8.0); URINE APPEARANCE CLOUDY; URINE BACTERIA 4959 /uL (0-1359); URINE BILIRUBIN NEGATIVE (NEGATIVE); URINE COLOR YELLOW; URINE GLUCOSE (UA) NEGATIVE (NEGATIVE); URINE KETONE NEGATIVE (NEGATIVE); URINE LEUK ESTERASE 2+ (NEGATIVE); URINE NITRITE POSITIVE (NEGATIVE); URINE PROTEIN 2+ (NEGATIVE); URINE RBC 5270 /uL (0-23.9); URINE UROBILINOGEN 0.2 mg/dL (0.2-1.0); URINE WBC 627 /uL (0-25.8)
== END 2020-10-15 01:05 | disposition home or self-care (01) ==
LOC: FER 23:56
DX: T83.091A Other mechanical complication of indwelling urethral catheter, initial encounter (principal)
CPT/HCPCS: 81003; 87086; 87186; 99283-25

== ENCOUNTER 2023-06-17 11:50 | Inpatient (IN) | payer MEDICARE, OTHER ==
[2023-06-17] MEDS ORDERED: AZITHROMYCIN IVPB 500 MG in DEXTROSE 5%-WATER - 250 ML IVPB ONE (12:15)
[2023-06-17] MEDS ORDERED: CEFTRIAXONE 1,000 MG in DEXTROSE 5%-WATER - 50 ML IVPB ONE (12:15)
[2023-06-17] MEDS ORDERED: cefTRIAXone SODIUM 1 GM VIAL ONE (13:02)
[2023-06-17 13:15] LABS: INR 1.02 (0.83-1.09); PROTHROMBIN TIME (PATIENT) 11.8 SEC (9.7-13.0)
[2023-06-17 13:18] LABS: ACTIVATED PTT 27.8 SECONDS (25.2-36.5)
[2023-06-17 13:21] LABS: ALBUMIN 3.2 g/dl (3.4-5.0); BLOOD UREA NITROGEN 8.9 mg/dl (7-18); CALCIUM 9.2 mg/dl (8.5-10.1); CREATININE 1.2 mg/dl (0.6-1.3); HEMATOCRIT 39.4 % (35.4-49); HEMOGLOBIN 12.3 G/dL (11.7-16.9); MCH 23.5 pg (25.7-33.7); MCHC 31.1 g/dl (32.0-35.9); MEAN CELL VOLUME 75.4 fl (80-96); MEAN PLT VOLUME 8.2 fl (7.5-11.1); PLATELET COUNT 280.2 10^3/uL (134-434); POTASSIUM 4.4 mmol/L (3.5-5.1); RBC 5.22 10^6/uL (4.00-5.60); RDW 20.4 % (11.9-15.9); SGOT/AST 14.8 U/L (15-37); SGPT/ALT 7.4 U/L (7-52); TOT PROT 5.8 g/dl (6.4-8.2); WHITE BLOOD COUNT 12.6 10^3/uL (4.0-10.8)
[2023-06-17] MEDS ORDERED: AZITHROMYCIN 500 MG VIAL IVPB ONE (13:33)
[2023-06-17 14:04] LABS: PLATELET ESTIMATE ADEQUATE
[2023-06-17 15:00] LABS: VENOUS BASE EXCESS -1.2 mmol/L (-2-2); VENOUS O2 SATURATION 42.6 % (70-80); VENOUS PCO2 52.5 mmHg (38-52); VENOUS PH 7.305 (7.310-7.410)
[2023-06-17 15:10] LABS: BILIRUBIN,TOTAL 0.4 mg/dL (0.2-1)
[2023-06-17 15:27] LABS: LACTIC ACID 2.5 mmol/L (0.4-2.0)
[2023-06-17 15:28] LABS: EPITHELIAL CELLS FEW /hpf; TRIPLE PHOSPHATE CRYSTAL FEW /hpf (NONE SEEN)
[2023-06-17] MEDS: ALBUTEROL SO4 2.5/IPRATROPIUM 0.5 INH SOL 3 ML VIAL.NEB. NEB SCH ×2 (17:32→21:10)
[2023-06-17] MEDS: LACTATED RINGERS SOLUTION 1,000 ML/1,000 ML INFUS.BAG IV SCH (17:33)
[2023-06-17] MEDS ORDERED: REFRIGERATED ANITBIOTICS ONE (20:09)
[2023-06-17] MEDS: clonazePAM 0.5 MG TABLET PO SCH (21:09)
[2023-06-17] MEDS: VALPROATE SODIUM 250 MG/5 ML UNIT DOSE CUP PO SCH (21:10)
[2023-06-17] MEDS: VANCOMYCIN ORAL SOLUTION 125 MG/2.5 ML PO SCH ×2 (21:20→22:14)
[2023-06-17] MEDS: levETIRAcetam 500 MG/5 ML ORAL SOLUTION (UNIT-DOSE CUPS) PO SCH (21:23)
[2023-06-18] MEDS: VALPROATE SODIUM 250 MG/5 ML UNIT DOSE CUP PO SCH ×3 (06:15→21:06)
[2023-06-18] MEDS: clonazePAM 0.5 MG TABLET PO SCH ×3 (06:16→21:06)
[2023-06-18] MEDS: VANCOMYCIN ORAL SOLUTION 125 MG/2.5 ML PO SCH (06:16)
[2023-06-18] MEDS: LEVOTHYROXINE NA 50 MCG TABLET (FP) PO SCH (06:16)
[2023-06-18] MEDS: levETIRAcetam 500 MG/5 ML ORAL SOLUTION (UNIT-DOSE CUPS) PO SCH ×3 (06:17→21:06)
[2023-06-18] MEDS: ALBUTEROL SO4 2.5/IPRATROPIUM 0.5 INH SOL 3 ML VIAL.NEB. NEB SCH ×4 (07:53→19:42)
[2023-06-18 08:50] LABS: HEMATOCRIT 36.1 % (35.4-49); HEMOGLOBIN 11.1 G/dL (11.7-16.9); MCHC 30.7 g/dl (32.0-35.9); MEAN CELL VOLUME 74.7 fl (80-96); MEAN PLT VOLUME 8.5 fl (7.5-11.1); PLATELET COUNT 286.2 10^3/uL (134-434); RBC 4.83 10^6/uL (4.00-5.60); RDW 19.5 % (11.9-15.9); WHITE BLOOD COUNT 8.8 10^3/uL (4.0-10.8)
[2023-06-18 08:57] LABS: ALBUMIN 3.1 g/dl (3.4-5.0); BLOOD UREA NITROGEN 9.3 mg/dl (7-18); CALCIUM 8.9 mg/dl (8.5-10.1); CREATININE 1.2 mg/dl (0.6-1.3); MAGNESIUM 1.9 mg/dL (1.8-2.4); PHOSPHOROUS 3.92 (2.5-4.9); SGOT/AST 14.4 U/L (15-37); SGPT/ALT 6.8 U/L (7-52); TOT PROT 5.6 g/dl (6.4-8.2)
[2023-06-18] MEDS: ENOXAPARIN NA (PORCINE) 40 MG/0.4 ML DISP.SYRIN SQ SCH (09:24)
[2023-06-18] MEDS: AZITHROMYCIN IVPB 500 MG/250 ML BAG IVPB SCH (09:24)
[2023-06-18] MEDS: CEFTRIAXONE 1 GM in DEXTROSE 5%-WATER - 50 ML IVPB SCH (09:24)
[2023-06-18] MEDS: PANTOPRAZOLE 40 MG TABLET PO SCH (09:25)
[2023-06-18] MEDS: FLUTICASONE/UMECLIDIN/VILANTER(200-62.5-25 TRELEGY ELLIPTA) INAHLER IH SCH (09:26)
[2023-06-18] MEDS ORDERED: VANCOMYCIN 250 MG/5 ML ORAL SOLUTION PO SCH (10:00)
[2023-06-18] MEDS ORDERED: VANCOMYCIN ORAL SOLUTION 125 MG/2.5 ML PO SCH (10:00)
[2023-06-18] MEDS ORDERED: VALPROATE SODIUM 250 MG/5 ML UNIT DOSE CUP PO SCH (10:00)
[2023-06-18 12:53] LABS: BILIRUBIN,TOTAL 0.2 mg/dL (0.2-1)
[2023-06-18] MEDS ORDERED: REFRIGERATED ANITBIOTICS ONE (19:35)
[2023-06-18] MEDS: LACTATED RINGERS SOLUTION 1,000 ML/1,000 ML INFUS.BAG IV SCH (19:43)
[2023-06-18] MEDS: VANCOMYCIN 250 MG/5 ML ORAL SOLUTION PO SCH (21:06)
[2023-06-18] MEDS ORDERED: ROSUVASTATIN CA 20 MG TABLET PO SCH (22:00)
[2023-06-19 01:23] VITALS: RESP 18
[2023-06-19] MEDS: clonazePAM 0.5 MG TABLET PO SCH ×2 (06:24→13:55)
[2023-06-19] MEDS: VALPROATE SODIUM 250 MG/5 ML UNIT DOSE CUP PO SCH ×2 (06:24→13:55)
[2023-06-19] MEDS: LEVOTHYROXINE NA 50 MCG TABLET (FP) PO SCH (06:24)
[2023-06-19] MEDS: levETIRAcetam 500 MG/5 ML ORAL SOLUTION (UNIT-DOSE CUPS) PO SCH ×2 (06:24→13:55)
[2023-06-19] MEDS: ALBUTEROL SO4 2.5/IPRATROPIUM 0.5 INH SOL 3 ML VIAL.NEB. NEB SCH (07:44)
[2023-06-19] MEDS ORDERED: SCOPOLAMINE HYDROBROMIDE 1 PATCH PATCH.TD72 TD SCH (08:45)
[2023-06-19] MEDS: CEFTRIAXONE 1 GM in DEXTROSE 5%-WATER - 50 ML IVPB SCH (09:30)
[2023-06-19] MEDS: VANCOMYCIN 250 MG/5 ML ORAL SOLUTION PO SCH (09:30)
[2023-06-19] MEDS: PANTOPRAZOLE 40 MG TABLET PO SCH (09:31)
[2023-06-19] MEDS: ENOXAPARIN NA (PORCINE) 40 MG/0.4 ML DISP.SYRIN SQ SCH (09:31)
[2023-06-19] MEDS: AZITHROMYCIN IVPB 500 MG/250 ML BAG IVPB SCH (09:31)
[2023-06-19] MEDS: FLUTICASONE/UMECLIDIN/VILANTER(200-62.5-25 TRELEGY ELLIPTA) INAHLER IH SCH (09:40)
[2023-06-19 10:55] VITALS: BMI 18.3
[2023-06-19 14:35] VITALS: BP 128/96; PULSE 75; TEMP 98.3
== END 2023-06-19 16:29 | disposition home or self-care (01) | DRG 871 ==
LOC: FER 11:50 → FM/S 14:14 → INTOOBSV 14:14 → FM/S 15:12 → OBSVTOIN 06-18 12:03
PROVIDERS: ADMIT Internal Medicine; ATTEND Internal Medicine
DX: A41.89 Other specified sepsis (principal); J18.9 Pneumonia, unspecified organism; G93.1 Anoxic brain damage, not elsewhere classified; J44.0 Chronic obstructive pulmonary disease with (acute) lower respiratory infection; J44.1 Chronic obstructive pulmonary disease with (acute) exacerbation; N40.0 Benign prostatic hyperplasia without lower urinary tract symptoms; I10 Essential (primary) hypertension; E78.00 Pure hypercholesterolemia, unspecified; Z74.01 Bed confinement status; E86.0 Dehydration; R13.10 Dysphagia, unspecified; D72.829 Elevated white blood cell count, unspecified; G40.909 Epilepsy, unspecified, not intractable, without status epilepticus; F03.90 Unspecified dementia, unspecified severity, without behavioral disturbance, psychotic disturbance, mood disturbance, and anxiety
CPT/HCPCS: 0241U-QW; 36415; 71045-TC-FY; 80053; 81003; 81015; 82553; 82607; 82652; 82746; 82803; 83605; 83735; 84100; 84439; 84443; 84484; 85027; 85610; 85730; 86850; 86900; 86901; 87040; 87086; 93005; 94640; 99285-25; G0378

== ENCOUNTER 2024-09-19 11:27 | Inpatient (IN) | payer OTHER ==
[2024-09-19] MEDS: SODIUM CHLORIDE 1,000 ML IV SCH (12:15)
[2024-09-19 12:20] LABS: ALBUMIN 3.7 g/dl (3.4-5.0); ALK PHOS 65 U/L (45-117); ANION GAP 8 mmol/L (4-13); BILIRUBIN,TOTAL 0.7 mg/dl (0.2-1); CALCIUM 9.6 mg/dl (8.5-10.1); CHLORIDE 98 mmol/L (98-107); CO2 28 mmol/L (21-32); CREATININE 1.5 mg/dl (0.6-1.3); GLUCOSE,RANDOM 89 mg/dl (74-106); POTASSIUM 4.3 mmol/L (3.5-5.1); SGOT/AST 16 U/L (15-37); SGPT/ALT 14 U/L (7-52); SODIUM 134 mmol/L (136-145); TOT PROT 6.7 g/dl (6.4-8.2)
[2024-09-19 12:35] LABS: HEMATOCRIT 38.5 % (35.4-49); HEMOGLOBIN 11.9 G/dL (11.7-16.9); MCH 21.7 pg (25.7-33.7); MCHC 30.9 g/dl (32.0-35.9); MEAN CELL VOLUME 70.2 fl (80-96); MEAN PLT VOLUME 10.1 fl (7.5-11.1); PLATELET COUNT 326.6 10^3/uL (134-434); RBC 5.49 10^6/uL (4.00-5.60); RDW 19.6 % (11.9-15.9)
[2024-09-19 13:13] LABS: LACTIC ACID 2.1 mmol/L (0.4-2.0)
[2024-09-19 13:31] LABS: EPITHELIAL CELLS 0-5 /hpf
[2024-09-19 13:32] LABS: ANISOCYTOSIS 1+; OVALOCYTE 2+
[2024-09-19 13:33] LABS: PLATELET ESTIMATE ADEQUATE
[2024-09-19] MEDS ORDERED: VANCOMYCIN 1,000 MG in DEXTROSE 5%-WATER - 250 ML IVPB ONE (14:04)
[2024-09-19] MEDS ORDERED: PIPERACILLIN/TAZOBACTAM 3.375 GM VIAL IVPB ONE (14:11)
[2024-09-19] MEDS: PIPERACILLIN/TAZOB 3.375 GM 3.375 GM in DEXTROSE 5%-WATER - 50 ML IVPB ONE (14:20)
[2024-09-19] MEDS ORDERED: ALBUTEROL SO4 2.5/IPRATROPIUM 0.5 INH SOL 3 ML VIAL.NEB. NEB PRN (15:44)
[2024-09-19] MEDS: LACTATED RINGERS SOLUTION 1,000 ML/1,000 ML INFUS.BAG IV SCH (15:58)
[2024-09-19] MEDS: ACETAMINOPHEN 1000 MG/100 ML BAG IVPB PRN (16:04)
[2024-09-19] MEDS: VANCOMYCIN/WATER FOR INJ (PEG) 1,000 MG/200 ML BAG IVPB ONE (16:13)
[2024-09-19] MEDS ORDERED: VALPROATE SODIUM INJECTION 250 MG in DEXTROSE 5%-WATER - 100 ML IVPB SCH (16:15)
[2024-09-19] MEDS: PANTOPRAZOLE SODIUM 40 MG VIAL IVPUSH SCH (16:16)
[2024-09-19] MEDS: levETIRAcetam 500 MG/5 ML INJECTION VIAL IVPB SCH (16:21)
[2024-09-19] MEDS: VALPROATE SODIUM 500 MG/5 ML VIAL IVPB SCH (16:56)
[2024-09-19] MEDS: VALPROATE SODIUM INJECTION 250 MG in DEXTROSE 5%-WATER - 100 ML IVPB SCH (19:37)
[2024-09-20 08:01] LABS: HEMATOCRIT 34.2 % (35.4-49); HEMOGLOBIN 10.2 GM/dL (11.7-16.9); MCH 20.5 pg (25.7-33.7); MCHC 29.7 g/dl (32.0-35.9); MEAN PLT VOLUME 8.6 fl (7.5-11.1); PLATELET COUNT 265 10^3/uL (134-434); RBC 4.96 M/mm3 (4.00-5.60); RDW 18.4 % (11.9-15.9); WHITE BLOOD COUNT 25.3 K/mm3 (4.0-10.0)
[2024-09-20 08:33] LABS: ALBUMIN 2.4 g/dl (3.4-5.0); BILIRUBIN,TOTAL 0.5 mg/dL (0.2-1); BLOOD UREA NITROGEN 15.7 mg/dL (7-18); CREATININE 1.4 mg/dL (0.55-1.3); TOT PROT 5.6 g/dl (6.4-8.2)
[2024-09-20 09:19] LABS: ANISOCYTOSIS 2+; MACROCYTOSIS 0
[2024-09-20] MEDS: PIPERACILLIN/TAZOB 3.375 GM 50 ML IVPB ONE (10:15)
[2024-09-20 10:46] LABS: LACTIC ACID 2.1 mmol/L (0.4-2.0)
[2024-09-20] MEDS: LACTATED RINGERS SOLUTION 1,000 ML/1,000 ML INFUS.BAG IV SCH (14:18)
[2024-09-20] MEDS: PIPERACILLIN/TAZOB 3.375 GM 50 ML IVPB SCH (19:33)
[2024-09-20] MEDS: HEPARIN NA (PORCINE) 5,000 UNITS/ML 1ML VIAL SQ SCH (21:10)
[2024-09-20] MEDS: VALPROATE SODIUM 250 MG/5 ML UNIT DOSE CUP PO SCH (21:10)
[2024-09-20] MEDS: clonazePAM 0.5 MG TABLET PO SCH (21:10)
[2024-09-21] MEDS: LEVOTHYROXINE NA 75 MCG TABLET (FP) PO SCH (06:00)
[2024-09-21 06:48] LABS: BASO % 0.3 % (0-2.0); EOS % 0.3 % (0-4.5); HEMATOCRIT 35.3 % (35.4-49); HEMOGLOBIN 10.4 GM/dL (11.7-16.9); MCH 20.4 pg (25.7-33.7); MCHC 29.6 g/dl (32.0-35.9); MEAN PLT VOLUME 8.6 fl (7.5-11.1); MONO % 7.2 % (3.8-10.2); NEUT % 62.2 % (42.8-82.8); PLATELET COUNT 267 10^3/uL (134-434); RBC 5.11 M/mm3 (4.00-5.60); RDW 19.2 % (11.9-15.9)
[2024-09-21 07:13] LABS: POTASSIUM 3.7 mmol/L (3.5-5.1)
[2024-09-21 07:23] LABS: ALBUMIN 2.4 g/dl (3.4-5.0); BLOOD UREA NITROGEN 12.7 mg/dL (7-18); CALCIUM 8.9 mg/dL (8.5-10.1); MAGNESIUM 1.9 mg/dL (1.8-2.4); PHOSPHOROUS 3.1 mg/dL (2.5-4.9)
[2024-09-21 07:24] LABS: BILIRUBIN,TOTAL 0.4 mg/dL (0.2-1)
[2024-09-21 07:26] LABS: CREATININE 1.3 mg/dL (0.55-1.3)
[2024-09-21] MEDS: PANTOPRAZOLE 40 MG TABLET PO SCH (09:50)
[2024-09-21] MEDS: levETIRAcetam 500 MG/5 ML ORAL SOLUTION (UNIT-DOSE CUPS) PO SCH (09:51)
[2024-09-21] MEDS: FOLIC ACID 1 MG TABLET (FP) PO SCH (09:52)
[2024-09-21] MEDS ORDERED: PIPERACILLIN/TAZOB 3.375 GM 50 ML IVPB ONE (10:00)
[2024-09-21] MEDS: ROSUVASTATIN CA 10 MG TABLET PO SCH (21:19)
[2024-09-21] MEDS: MONTELUKAST NA 10 MG TABLET PO SCH (21:20)
[2024-09-22 06:52] LABS: BASO % 0.6 % (0-2.0); EOS % 0.7 % (0-4.5); HEMOGLOBIN 10.4 GM/dL (11.7-16.9); LYMPH % 43.6 % (8-40); MCH 20.6 pg (25.7-33.7); MCHC 29.6 g/dl (32.0-35.9); MEAN CELL VOLUME 69.5 fl (80-96); MEAN PLT VOLUME 8.6 fl (7.5-11.1); MONO % 10.5 % (3.8-10.2); NEUT % 44.6 % (42.8-82.8); PLATELET COUNT 275 10^3/uL (134-434); RBC 5.04 M/mm3 (4.00-5.60); WHITE BLOOD COUNT 10.1 K/mm3 (4.0-10.0)
[2024-09-22 07:03] LABS: POTASSIUM 3.9 mmol/L (3.5-5.1)
[2024-09-22 07:05] LABS: CALCIUM 8.9 mg/dL (8.5-10.1)
[2024-09-22 07:06] LABS: ALBUMIN 2.3 g/dl (3.4-5.0); BLOOD UREA NITROGEN 10.2 mg/dL (7-18); MAGNESIUM 1.8 mg/dL (1.8-2.4)
[2024-09-22 07:09] LABS: CREATININE 1.2 mg/dL (0.55-1.3); PHOSPHOROUS 3.4 mg/dL (2.5-4.9)
[2024-09-22 07:11] LABS: BILIRUBIN,TOTAL 0.3 mg/dL (0.2-1); TOT PROT 5.7 g/dl (6.4-8.2)
[2024-09-22 13:13] VITALS: BMI 17.1
[2024-09-22 20:08] VITALS: BP 138/78; PULSE 63
[2024-09-22 23:08] VITALS: RESP 20
[2024-09-22 23:09] VITALS: TEMP 98.2
== END 2024-09-22 22:30 | disposition home or self-care (01) | DRG 871 ==
LOC: FER 11:27 → FM/S 14:05 → J2W 18:05
PROVIDERS: ATTEND Internal Medicine
DX: A41.9 Sepsis, unspecified organism (principal); E43 Unspecified severe protein-calorie malnutrition; J18.9 Pneumonia, unspecified organism; J44.0 Chronic obstructive pulmonary disease with (acute) lower respiratory infection; Z68.1 Body mass index [BMI] 19.9 or less, adult; G81.91 Hemiplegia, unspecified affecting right dominant side; G93.1 Anoxic brain damage, not elsewhere classified; E87.20 Acidosis, unspecified; R91.8 Other nonspecific abnormal finding of lung field; G40.909 Epilepsy, unspecified, not intractable, without status epilepticus; I10 Essential (primary) hypertension; F03.90 Unspecified dementia, unspecified severity, without behavioral disturbance, psychotic disturbance, mood disturbance, and anxiety; E78.5 Hyperlipidemia, unspecified; R16.0 Hepatomegaly, not elsewhere classified; N40.0 Benign prostatic hyperplasia without lower urinary tract symptoms; K21.9 Gastro-esophageal reflux disease without esophagitis
CPT/HCPCS: 0241U-QW; 36415; 71045-TC-FY; 71250-TC; 74230-TC-FY; 80053; 81003; 81015; 82105; 82962; 83605; 83735; 84100; 84484; 85025; 85027; 87040; 87481; 92611-GN; 93005; 97162-GP; 99285-25; J0131; J1644